=== PATIENT | female | born 1945 | race Caucasian/White ===

== ENCOUNTER 2016-08-22 14:24 | Inpatient (IN) | payer OTHER, MEDICARE ==
[~2016-08-22] VITALS: Ht 162.6 cm; Wt 75.2 kg
[~2016-08-22 14:24] MED LIST: Aspirin Chew CHEW; FLUO1TAB3 PO; LIPI80TA PO; METO25TA3 PO; OMEP20CA2 PO; PLAV75TA29 PO; SYNT112T PO
[2016-08-22 14:25] VITALS: BP 119/86; PULSE 52; RESP 16; TEMP 97.7; O2SAT 96
[2016-08-22 14:59] LABS: CHLORIDE 104 MEQ/L (98-107); POTASSIUM 4.1 MEQ/L (3.5-5.1); SODIUM (NA) 140 MEQ/L (136-145)
[2016-08-22 15:03] LABS: ANION GAP 12 MEQ/L (5-15); BICARBONATE 24.2 MEQ/L (21.0-32.0); BLOOD UREA NITROGEN 22 MG/DL (7-18)
[2016-08-22 15:06] LABS: GLOMERULAR FILTRATION RATE 40 ML/MIN (>89)
[2016-08-22 15:13] LABS: AUTOMATED NEUTROPHIL # 5.2 TH/MM3 (1.8-7.7); BASOPHIL # 0.1 TH/MM3 (0-0.2); BASOPHIL % 0.7 % (0.0-2.0); EOSINOPHIL # 0.1 TH/MM3 (0-0.4); EOSINOPHIL % 1.8 % (0.0-4.0); HEMATOCRIT 32.6 % (35.0-46.0); LYMPH % 25.5 % (9.0-44.0); LYMPHOCYTE # 2.1 TH/MM3 (1.0-4.8); MEAN CELL VOLUME 83.2 FL (80.0-100.0); MEAN CORPUSCULAR HEMOGLOBIN 26.5 PG (27.0-34.0); MEAN CORPUSCULAR HGB CONC 31.9 % (32.0-36.0); MONO % 7.7 % (0.0-8.0); NEUT % 64.3 % (16.0-70.0); PLATELET COUNT 419 TH/MM3 (150-450); RED BLOOD COUNT 3.92 MIL/MM3 (4.00-5.30); RED CELL DISTRIBUTION WIDTH 16.4 % (11.6-17.2); WHITE BLOOD COUNT 8.1 TH/MM3 (4.0-11.0)
[2016-08-22 15:14] LABS: HEMO FLAGS DIFF FINAL
[2016-08-22 15:17] LABS: CREATINE KINASE 26 U/L (26-192)
[2016-08-22 15:20] VITALS: BP 131/97; PULSE 52; RESP 16; O2SAT 99
[2016-08-22 15:22] LABS: INDIRECT BILIRUBIN 0.3 MG/DL (0.0-0.8); TOTAL BILIRUBIN ADULT 0.4 MG/DL (0.2-1.0)
[2016-08-22] MEDS ORDERED: PLAV75TA29 PO (15:34)
[2016-08-22] MEDS ORDERED: CHOL1CAP14 PO (15:34)
[2016-08-22] MEDS ORDERED: OMEP40CA2 PO (15:34)
[2016-08-22] MEDS ORDERED: FLUO1TAB3 PO (15:34)
[2016-08-22] MEDS ORDERED: AMLO5TAB2 PO (15:34)
[2016-08-22] MEDS ORDERED: LORA-373 PO (15:34)
[2016-08-22] MEDS ORDERED: METO25TA3 PO (15:34)
[2016-08-22] MEDS ORDERED: SYNT112T PO (15:34)
[2016-08-22] MEDS ORDERED: ATOR40TA16 PO (15:34)
--- NOTE | 2016-08-22 15:42 | RADRPT ---
EXAM DATE/TIME: 08/22/2016 14:51 [place] COMPARISON: CHEST SINGLE AP, January 28, 2016, 19:04. INDICATIONS : Chest pain MEDICAL HISTORY : Chronic obstructive pulmonary disease. Diabetes mellitus type II. SURGICAL HISTORY : CABG. ENCOUNTER: Initial ACUITY: 1 day PAIN SCORE: 8/10 LOCATION: Bilateral chest FINDINGS: Mild edema pattern. Mild cardiomegaly. Small effusions. Postop CABG. No pneumothorax. CONCLUSION: 1. Mild pulmonary edema pattern with small effusions. Postoperative CABG. Robert Gilliland MD on August 22, 2016 at 15:39 Board Certified Radiologist. This report was verified electronically.
[2016-08-22 16:30] VITALS: BP 127/68; PULSE 60; RESP 16; O2SAT 97
[2016-08-22] MEDS ORDERED: FUROSEMIDE 40 MG/4 ML VIAL IV PUSH ONE (17:00)
--- NOTE | 2016-08-22 17:21 | PD ---
HPI Chief Complaint: Chest Pain Time Seen by Provider: 14:31 Travel History International Travel<30 days: No Contact w/Intl Traveler<30days: No Traveled to known affect area: No History of Present Illness HPI 71-year-old female arrives to the ER with a complaint of shortness of breath for the past 14 hours or so. Chest pain followed. Location retrosternal. There is radiation of the left upper extremity. Has a pressure-like quality with a severity of 8/10. She took a nitroglycerin glycerin sublingual tablet which helped minimally. She had a similar pain although was less severe about 8 months prior which proceeded a CABG. Of note she underwent routine blood work performed by her primary doctor evidently for jaundice. The patient had no abdominal pain or vomiting. No change in urination. She reports orthopnea. She reports dyspnea on exertion as well. PFSH Past Medical History Depression: Yes Cancer: No Cardiovascular Problems: Yes Coronary Artery Disease: Yes Diabetes: Yes Patient Takes Glucophage: Yes Diminished Hearing: No GERD: Yes Glaucoma: No Hepatitis: No Hiatal Hernia: No Hypertension: Yes Medical other: Yes (HYPERCHOLESTEROLEMIA) Respiratory: No Immunizations Current: No Thyroid Disease: Yes ?: Not Past Surgical History Abdominal Surgery: Yes (APPEND) Appendectomy: Yes Cardiac Surgery: Yes (CARDIAC STENT X 3) Coronary Artery Bypass Graft: Yes (12/2015) Coronary Stent: Yes (X 4) Ear Surgery: No Endocrine Surgery: No Eye Surgery: No Genitourinary Surgery: No Gynecologic Surgery: Yes (HYSTERECTOMY) Hysterectomy: Yes Neurologic Surgery: No Oral Surgery: No Pacemaker: No Thoracic Surgery: No Tonsillectomy: Yes Other Surgery: Yes Social History Alcohol Use: Yes (1 BEERS DAILY) Tobacco Use: No Substance Use: No Allergies-Medications (Allergen,Severity, Reaction): Coded Allergies: Codeine (Verified Allergy, Unknown, ITCH, 08/22/16) Reported Meds & Prescriptions Reported Meds & Active Scripts Active [Aspirin Chew] 81 MG Chew 81 Mg CHEW DAILY 30 Days Reported Lorazepam 0.5 Mg Tab 0.5 Mg PO Q6H PRN Synthroid (Levothyroxine Sodium) 112 Mcg Tab 112 Mcg PO DAILY Plavix (Clopidogrel Bisulfate) 75 Mg Tab 75 Mg PO DAILY Omeprazole 40 Mg Cap 40 Mg PO DAILY Metoprolol Tartrate 25 Mg Tab 25 Mg PO BID Fluoxetine (Fluoxetine HCl) 20 Mg Tab 20 Mg PO DAILY D3 Maximum Strength (Cholecalciferol) 5,000 Unit Cap 5,000 Units PO DAILY Atorvastatin (Atorvastatin Calcium) 40 Mg Tab 40 Mg PO HS Amlodipine (Amlodipine Besylate) 5 Mg Tab 5 Mg PO DAILY Review of Systems Except as stated in HPI: all other systems reviewed are Neg Physical Exam Narrative GENERAL: 71-year-old female pleasant well-nourished well-developed no acute distress SKIN: Focused skin assessment warm/dry. HEAD: Atraumatic. Normocephalic. EYES: Pupils equal and round. No scleral icterus. No injection or drainage. ENT: No nasal bleeding or discharge. Mucous membranes pink and moist. NECK: Trachea midline. No JVD. CARDIOVASCULAR: Regular rate and rhythm. No murmur appreciated. RESPIRATORY: No accessory muscle use. Clear to auscultation. Breath sounds equal bilaterally. GASTROINTESTINAL: Abdomen soft, non-tender, nondistended. Hepatic and splenic margins not palpable. MUSCULOSKELETAL: No obvious deformities. No clubbing. No cyanosis. No edema. NEUROLOGICAL: Awake and alert. No obvious cranial nerve deficits. Motor grossly within normal limits. Normal speech. PSYCHIATRIC: Appropriate mood and affect; insight and judgment normal. Data Data Last Documented VS Vital Signs Date Time Temp Pulse Resp B/P Pulse Ox O2 Delivery O2 Flow Rate FiO2 08/22/16 16:30 60 16 127/68 97 08/22/16 15:20 Nasal Cannula 2 08/22/16 14:25 97.7 Vital signs reviewed Orders Electrocardiogram (08/22/16 14:29) Complete Blood Count With Diff (08/22/16 14:29) Basic Metabolic Panel (Bmp) (08/22/16 14:29) Ckmb (Isoenzyme) Profile (08/22/16 14:29) Troponin I (08/22/16 14:29) Chest, Single Ap (08/22/16 14:29) Iv Access Insert/Monitor (08/22/16 14:29) Ecg Monitoring (08/22/16 14:29) Oxygen Administration (08/22/16 14:29) Oximetry (08/22/16 14:29) Hepatic Functional Panel (08/22/16 15:00) Lipase (08/22/16 15:00) B-Type Natriuretic Peptide (08/22/16 15:53) Furosemide Inj (Lasix Inj) (08/22/16 17:00) Admit Order (Ed Use Only) (08/22/16 17:07) Labs Laboratory Tests Test 08/22/16 08/22/16 14:25 16:00 White Blood Count 8.1 TH/MM3 Red Blood Count 3.92 MIL/MM3 Hemoglobin 10.4 GM/DL Hematocrit 32.6 % Mean Corpuscular Volume 83.2 FL Mean Corpuscular Hemoglobin 26.5 PG Mean Corpuscular Hemoglobin 31.9 % Concent Red Cell Distribution Width 16.4 % Platelet Count 419 TH/MM3 Mean Platelet Volume 8.2 FL Neutrophils (%) (Auto) 64.3 % Lymphocytes (%) (Auto) 25.5 % Monocytes (%) (Auto) 7.7 % Eosinophils (%) (Auto) 1.8 % Basophils (%) (Auto) 0.7 % Neutrophils # (Auto) 5.2 TH/MM3 Lymphocytes # (Auto) 2.1 TH/MM3 Monocytes # (Auto) 0.6 TH/MM3 Eosinophils # (Auto) 0.1 TH/MM3 Basophils # (Auto) 0.1 TH/MM3 CBC Comment DIFF FINAL Differential Comment Sodium Level 140 MEQ/L Potassium Level 4.1 MEQ/L Chloride Level 104 MEQ/L Carbon Dioxide Level 24.2 MEQ/L Anion Gap 12 MEQ/L Blood Urea Nitrogen 22 MG/DL Creatinine 1.30 MG/DL Estimat Glomerular Filtration 40 ML/MIN Rate Random Glucose 142 MG/DL Calcium Level 8.4 MG/DL Total Bilirubin 0.4 MG/DL Direct Bilirubin 0.1 MG/DL Indirect Bilirubin 0.3 MG/DL Aspartate Amino Transf 15 U/L (AST/SGOT) Alanine Aminotransferase 20 U/L (ALT/SGPT) Alkaline Phosphatase 117 U/L Total Creatine Kinase 26 U/L Troponin I LESS THAN 0.02 NG/ML Total Protein 7.3 GM/DL Albumin 3.0 GM/DL Lipase 84 U/L B-Type Natriuretic Peptide 821 PG/ML MDM Medical Decision Making Medical Screen Exam Complete: Yes Emergency Medical Condition: Yes Medical Record Reviewed: Yes Differential Diagnosis NSTEMI, unstable angina, coronary vasospasm, PE, PTX, aortic dissection, pericarditis, myocarditis, endocarditis, PNA, esophageal disease, aneurysm, musculoskeletal etiologies, anxiety, cocaine/sympathomimetic abuse Narrative Course CBC & BMP Diagram 08/22/16 14:25 BNP 821 LFTs normal Lipase 84 Tn < 0.02 Last 24 hours Impressions Chest X-Ray 08/22/16 1429 Signed Impressions: Service Date/Time: Monday, August 22, 2016 14:51 - CONCLUSION: 1. Mild pulmonary edema pattern with small effusions. Postoperative CABG. Robert Gilliland MD Prior echo reveals aortic stenosis. Case d/w Dr Garcia. 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
[2016-08-22] MEDS ORDERED: BISACODYL 10 MG SUPP RECTAL PRN (17:30)
[2016-08-22] MEDS ORDERED: MAGNESIUM HYDROXIDE SUSP 30 ML CUP PO PRN (17:30)
[2016-08-22] MEDS ORDERED: LACTULOSE SYRUP 20 GM/30 ML CUP PO PRN (17:30)
[2016-08-22] MEDS ORDERED: SODIUM CHLORIDE 0.9% FLUSH 10 ML FLUSH IV FLUSH PRN (17:30)
[2016-08-22] MEDS ORDERED: SENNOSIDES 8.6 MG TAB PO PRN (17:30)
[2016-08-22] MEDS ORDERED: ONDANSETRON HCL 4 MG/2 ML VIAL IVP PRN (17:30)
[2016-08-22] MEDS ORDERED: NALOXONE HCL 0.4 MG/ML AMP IV PRN (17:30)
[2016-08-22 17:57] VITALS: O2SAT 99
[2016-08-22] MEDS ORDERED: ENOXAPARIN SODIUM 40 MG/0.4 ML SYRINGE SQ SCH (18:00)
--- NOTE | 2016-08-22 18:56 | HHI.HP ---
[facility]Staff Admission Diagnosis CHF Exacerbation; Chest Pain Diagnoses: Chief Complaint: Shortness of breath, chest pain. Travel History International Travel<30 Days: No Contact w/Intl Traveler <30 Da: No Traveled to Known Affected Are: No History of Present Illness Ms. White is a pleasant 71 year old female with a history of severe aortic stenosis who presented to the ED on 08/22/2016 due to dyspnea and chest discomfort. At around 2 AM on 08/22/2016 patient started experiencing shortness of breath which persisted until she arrived in the emergency department and received supplemental oxygen. She also experienced a brief episode of substernal chest pressure after she started having shortness of breath. Patient denies any nausea vomiting, cough, abdominal pain. Denies any fever or chills. Denies any changes in bowel or bladder habits. She received Lasix 40 mg IV in the emergency department. She follows up with Dr. Valentin with [facility]. Review of Systems Except as stated in HPI: all other systems reviewed are Neg Past Family Social History Past Medical History Aortic stenosis Hypothyroidism Hypertension Hyperlipidemia GERD Anxiety/Depression Past Surgical History Appendectomy Cardiac stent X 3 Hysterectomy Reported Medications [Aspirin Chew] 81 MG Chew 81 Mg CHEW DAILY 30 Days Reported Lorazepam 0.5 Mg Tab 0.5 Mg PO Q6H PRN Synthroid (Levothyroxine Sodium) 112 Mcg Tab 112 Mcg PO DAILY Plavix (Clopidogrel Bisulfate) 75 Mg Tab 75 Mg PO DAILY Omeprazole 40 Mg Cap 40 Mg PO DAILY Metoprolol Tartrate 25 Mg Tab 25 Mg PO BID Fluoxetine (Fluoxetine HCl) 20 Mg Tab 20 Mg PO DAILY D3 Maximum Strength (Cholecalciferol) 5,000 Unit Cap 5,000 Units PO DAILY Atorvastatin (Atorvastatin Calcium) 40 Mg Tab 40 Mg PO HS Amlodipine (Amlodipine Besylate) 5 Mg Tab 5 Mg PO DAILY Allergies: Coded Allergies: Codeine (Verified Allergy, Unknown, ITCH, 08/22/16) Family History MotherParkinson's. Mother/father/brother - heart disease. Social History 1 beer daily. Denies using tobacco or illicit drugs. Physical Exam Vital Signs Vital Signs Date Time Temp Pulse Resp B/P Pulse Ox O2 Delivery O2 Flow Rate FiO2 08/22/16 17:57 99 Nasal Cannula 2.00 08/22/16 16:30 60 16 127/68 97 08/22/16 15:20 52 16 131/97 99 Nasal Cannula 2 08/22/16 14:45 99 Nasal Cannula 2 08/22/16 14:25 52 24 96 Room Air 08/22/16 14:25 97.7 52 16 119/86 96 Physical Exam GENERAL: This is a well-nourished, well-developed patient, in no apparent distress. SKIN: No rashes, ecchymoses or lesions. Warm and dry. HEAD: Atraumatic. Normocephalic. No temporal or scalp tenderness. EYES: Pupils equal round and reactive. No injection or drainage. ENT: Nose without bleeding, purulent drainage or septal hematoma. Airway patent. NECK: Trachea midline. No lymphadenopathy. Supple, nontender, no meningeal signs. CARDIOVASCULAR: Regular rate and rhythm without gallops, or rubs. No JVD. Systolic ejection murmur heard on both side of the sternum. RESPIRATORY: Clear to auscultation. Breath sounds equal bilaterally. No wheezes , rales, or rhonchi. GASTROINTESTINAL: Abdomen soft, non-tender, nondistended. No guarding. MUSCULOSKELETAL: Extremities without clubbing, cyanosis, or edema. NEUROLOGICAL: Awake and alert. Cranial nerves II through XII intact. No focal neurological deficits. Normal speech. Laboratory Laboratory Tests Test 08/22/16 08/22/16 14:25 16:00 White Blood Count 8.1 Red Blood Count 3.92 Hemoglobin 10.4 Hematocrit 32.6 Mean Corpuscular Volume 83.2 Mean Corpuscular Hemoglobin 26.5 Mean Corpuscular Hemoglobin 31.9 Concent Red Cell Distribution Width 16.4 Platelet Count 419 Mean Platelet Volume 8.2 Neutrophils (%) (Auto) 64.3 Lymphocytes (%) (Auto) 25.5 Monocytes (%) (Auto) 7.7 Eosinophils (%) (Auto) 1.8 Basophils (%) (Auto) 0.7 Neutrophils # (Auto) 5.2 Lymphocytes # (Auto) 2.1 Monocytes # (Auto) 0.6 Eosinophils # (Auto) 0.1 Basophils # (Auto) 0.1 CBC Comment DIFF FINAL Differential Comment Sodium Level 140 Potassium Level 4.1 Chloride Level 104 Carbon Dioxide Level 24.2 Anion Gap 12 Blood Urea Nitrogen 22 Creatinine 1.30 Estimat Glomerular Filtration 40 Rate Random Glucose 142 Calcium Level 8.4 Total Bilirubin 0.4 Direct Bilirubin 0.1 Indirect Bilirubin 0.3 Aspartate Amino Transf 15 (AST/SGOT) Alanine Aminotransferase 20 (ALT/SGPT) Alkaline Phosphatase 117 Total Creatine Kinase 26 Troponin I LESS THAN 0.02 Total Protein 7.3 Albumin 3.0 Lipase 84 B-Type Natriuretic Peptide 821 Result Diagram: 08/22/16 1425 08/22/16 142 Imaging Last Impressions Chest X-Ray 08/22/161428 Signed Impressions: Service Date/Time: Monday, August 22, 2016 14:51 - CONCLUSION: 1. Mild pulmonary edema pattern with small effusions. Postoperative CABG. Robert Gilliland MD Assessment and Plan Problem List: (1) CHF exacerbation ICD Code: I50.9 Status: Acute (2) CAD (coronary artery disease) ICD Code: I25.10 Status: Acute (3) Hypothyroidism ICD Code: E03.9 Status: Chronic (4) Hyperlipidemia ICD Code: E78.5 Status: Chronic Assessment and Plan Ms. White is a pleasant 71-year-old patient female with a history of hypertension, hypothyroidism, moderate to severe aortic stenosis who presents to the emergency department due to shortness of breath that started around 2 AM on 08/22/2016. Patient had a brief episode of chest pressure as well. - Congestive heart failure with preserved left ventricular ejection fraction - Moderate to severe aortic stenosis - Echocardiogram from January 2016 indicates preserved ejection fraction but moderate to severe aortic stenosis. - Echo from January 2016 recommended a VIPUL - Patient reports improvement with supplemental oxygen and Lasix 40 mg given in the emergency department. - We'll consult cardiology for further recommendations including evaluation for TAVR. - 2-D echocardiogram to evaluate LV function as well as aortic stenosis. - Coronary artery disease - Carotid artery stenosis - status post 3 cardiac stents last one in 2011 and status post carotid endarterectomy, carotid stent placement - Continue aspirin 81 mg, Plavix 75 mg, atorvastatin 40 mg. - Atrial fibrillation - Appears to be a new finding. Previous EKG from 2016 does not show Afib - [id number] score at least 3 (Age, female, HTN), higher if CHF is considered in the calculation as well. - Currently rate is controlled. Patient would benefit from switching from Plavix to warfarin or preferably newer anti-coagulants such as Apixaban. - Hypertension - continue amlodipine 2.5 mg daily, metoprolol 25 mg by mouth twice a day - Hypothyroidism - continue levothyroxine 112 g daily. Full code. Lovenox 40mg Qday. Physician Certification 2 Midnight Certification Type: Admission for Inpatient Services Order for Inpatient Services The services are ordered in accordance with Medicare regulations or non- Medicare payer requirements, as applicable. In the case of services not specified as inpatient-only, they are appropriately provided as inpatient services in accordance with the 2-midnight benchmark. Estimated LOS (days): 2 days is the estimated time the patient will need to remain in the hospital, assuming treatment plan goals are met and no additional complications. Post-Hospital Plan: Home Problem Qualifiers (1) CHF exacerbation: Qualified Code: I50.9 - Acute on chronic congestive heart failure, unspecified congestive heart failure type Alem Garcia DO Aug 22, 2016 6:56 pm
[2016-08-22 20:00] VITALS: BP 150/72; PULSE 61; RESP 16; TEMP 96.8; O2SAT 98
[2016-08-22 21:00] VITALS: PULSE 55
[2016-08-22] MEDS: DOCUSATE SODIUM 50 MG/SENNA 8.6 MG TAB PO SCH (21:00)
[2016-08-22] MEDS: LORazepam 0.5 MG TAB PO PRN (21:54)
[2016-08-22] MEDS: ATORVASTATIN 40 MG TAB PO SCH (21:54)
[2016-08-22] MEDS: METOPROLOL TARTRATE 25 MG TAB PO SCH (21:54)
[2016-08-22] MEDS: ACETAMINOPHEN 325 MG TAB PO PRN (21:55)
[2016-08-22] MEDS: SODIUM CHLORIDE 0.9% FLUSH 10 ML FLUSH IV FLUSH SCH (21:57)
[2016-08-22] MEDS ORDERED: MELA1TAB18 PO (23:18)
[2016-08-23] VITALS (18 sets, daily range): BP systolic 109–142; BP diastolic 64–82; PULSE 50–74; RESP 16–20; TEMP 95.7–98.4; O2SAT 94–98
[2016-08-23 06:42] LABS: AUTOMATED NEUTROPHIL # 3.4 TH/MM3 (1.8-7.7); BASOPHIL % 0.6 % (0.0-2.0); EOSINOPHIL # 0.2 TH/MM3 (0-0.4); EOSINOPHIL % 2.8 % (0.0-4.0); HEMATOCRIT 31.1 % (35.0-46.0); HEMO FLAGS DIFF FINAL; LYMPH % 29.4 % (9.0-44.0); LYMPHOCYTE # 1.8 TH/MM3 (1.0-4.8); MEAN CORPUSCULAR HEMOGLOBIN 26.5 PG (27.0-34.0); MEAN CORPUSCULAR HGB CONC 32.3 % (32.0-36.0); MONO % 9.5 % (0.0-8.0); NEUT % 57.7 % (16.0-70.0); PLATELET COUNT 386 TH/MM3 (150-450); RED BLOOD COUNT 3.79 MIL/MM3 (4.00-5.30); RED CELL DISTRIBUTION WIDTH 15.7 % (11.6-17.2)
[2016-08-23 06:49] LABS: POTASSIUM 3.7 MEQ/L (3.5-5.1)
[2016-08-23 06:52] LABS: BICARBONATE 26.3 MEQ/L (21.0-32.0)
[2016-08-23] MEDS: LEVOTHYROXINE SODIUM 112 MCG TAB PO SCH (06:57)
[2016-08-23] MEDS ORDERED: CLOPIDOGREL 75 MG TAB PO SCH (09:00)
[2016-08-23] MEDS ORDERED: amLODIPine BESYLATE 5 MG TAB PO SCH (09:00)
[2016-08-23] MEDS ORDERED: APIXABAN 5 MG TABLET PO SCH (09:00)
--- NOTE | 2016-08-23 09:00 | HHI.PR ---
Subjective Remarks Follow up for CHF, Aortic stenosis, Afib. Patient is doing well. Denies any chest pain, shortness of breath, fever, chills. She is comfortable in bed. Objective Vitals Vital Signs Date Time Temp Pulse Resp B/P Pulse Ox O2 Delivery O2 Flow Rate FiO2 08/23/16 08:00 95 Nasal Cannula 2.00 08/23/16 04:00 96.2 56 16 109/75 97 08/23/16 00:00 96.1 60 16 142/70 98 08/22/16 21:00 55 08/22/16 20:00 98 Nasal Cannula 2.00 08/22/16 20:00 96.8 61 16 150/72 98 08/22/16 17:57 99 Nasal Cannula 2.00 08/22/16 16:30 60 16 127/68 97 08/22/16 15:20 52 16 131/97 99 Nasal Cannula 2 08/22/16 14:45 99 Nasal Cannula 2 08/22/16 14:25 52 24 96 Room Air 08/22/16 14:25 97.7 52 16 119/86 96 I/O 08/22/16 08/22/16 08/22/16 08/23/16 08/23/16 08/23/16 07:00 15:00 23:00 07:00 15:00 23:00 Intake Total 240 ml Output Total 800 ml Balance -800 ml 240 ml Intake Oral 240 ml Output Urine Total 800 ml # Voids 3 # Bowel Movements 0 Result Diagram: 08/23/16 0550 08/23/16 0550 Imaging Last Impressions Chest X-Ray 08/22/16 1429 Signed Impressions: Service Date/Time: Monday, August 22, 2016 14:51 - CONCLUSION: 1. Mild pulmonary edema pattern with small effusions. Postoperative CABG. Robert Gilliland MD Objective Remarks GENERAL: AOX3, NAD. On supplemental O2. SKIN: Warm and dry. HEAD: Normocephalic. EYES: No scleral icterus. No injection or drainage. NECK: Supple, trachea midline. No JVD or lymphadenopathy. CARDIOVASCULAR: Irreg Irreg without gallops, or rubs. Systolic murmur heard on both sides of the sternum RESPIRATORY: Breath sounds equal bilaterally. No accessory muscle use. GASTROINTESTINAL: Abdomen soft, non-tender, nondistended. MUSCULOSKELETAL: No cyanosis, or edema. BACK: Nontender without obvious deformity. No CVA tenderness. Procedures None. A/P Problem List: (1) CHF exacerbation ICD Code: I50.9 Status: Acute (2) CAD (coronary artery disease) ICD Code: I25.10 Status: Acute (3) Hypothyroidism ICD Code: E03.9 Status: Chronic (4) Hyperlipidemia ICD Code: E78.5 Status: Chronic Assessment and Plan Ms. White is a pleasant 71-year-old patient female with a history of hypertension, hypothyroidism, moderate to severe aortic stenosis who presents to the emergency department due to shortness of breath that started around 2 AM on 08/22/2016. Patient had a brief episode of chest pressure as well. - Congestive heart failure with preserved left ventricular ejection fraction - Moderate to severe aortic stenosis - Echocardiogram from January 2016 indicates preserved ejection fraction but moderate to severe aortic stenosis. - Patient reports improvement with supplemental oxygen and Lasix 40 mg given in the emergency department. - Consulted cardiology for further recommendations including evaluation for TAVR. - 2-D echocardiogram to evaluate LV function as well as aortic stenosis. - Cardiology recommends transferring patient to the main hospital for possible Cardiac cath. NPO midnight except meds. - Coronary artery disease - Carotid artery stenosis - status post 3 cardiac stents last one in 2011 and status post carotid endarterectomy, carotid stent placement - Continue aspirin 81 mg, Plavix 75 mg, atorvastatin 40 mg. - Atrial fibrillation - Appears to be a new finding. Previous EKG from 2016 does not show Afib - [id number] score at least 3 (Age, female, HTN), higher if CHF is considered in the calculation as well. - Currently rate is controlled. Patient would benefit from switching from Plavix to warfarin or preferably newer anti-coagulants such as Apixaban. - Hypertension - continue amlodipine 2.5 mg daily, metoprolol 25 mg by mouth twice a day - Hypothyroidism - continue levothyroxine 112 g daily. Full code. Lovenox 40mg Qday. Problem Qualifiers (1) CHF exacerbation: Qualified Code: I50.9 - Acute on chronic congestive heart failure, unspecified congestive heart failure type Alem Garcia DO Aug 23, 2016 8:59 am
[2016-08-23] MEDS: DOCUSATE SODIUM 50 MG/SENNA 8.6 MG TAB PO SCH ×2 (09:04→21:00)
[2016-08-23] MEDS: METOPROLOL TARTRATE 25 MG TAB PO SCH ×2 (09:04→21:14)
[2016-08-23] MEDS: amLODIPine BESYLATE 5 MG TAB PO SCH (09:04)
[2016-08-23] MEDS: FLUoxetine HCL 20 MG CAP PO SCH (09:04)
[2016-08-23] MEDS: PANTOPRAZOLE SOD 40 MG DELAYED RELEASE TAB PO SCH (09:04)
[2016-08-23] MEDS: ASPIRIN EC 81 MG TABEC PO SCH (09:04)
[2016-08-23] MEDS: ACETAMINOPHEN 325 MG TAB PO PRN ×2 (09:11→21:12)
[2016-08-23] MEDS: SODIUM CHLORIDE 0.9% FLUSH 10 ML FLUSH IV FLUSH SCH ×2 (09:11→21:15)
[2016-08-23] MEDS: CHOLECALCIFEROL (VIT D3) 5000 UNIT CAP PO SCH (09:11)
[2016-08-23] MEDS ORDERED: CLOPIDOGREL 75 MG TAB PO ONE (09:15)
--- NOTE | 2016-08-23 09:24 | MB ---
cc: LUCI ROBERTS MD DATE OF CONSULTATION August 23, 2016 REASON FOR CONSULTATION CHF and aortic stenosis. HISTORY OF PRESENT ILLNESS The patient is a very pleasant 71-year-old woman with a history of CHF and aortic stenosis who had a hospitalization this past January for these issues. At that point she had an echocardiogram which showed a normal ejection fraction but was read as moderate to severe (only a low gradient was found by Doppler and thus a VIPUL was recommended). The patient has been doing well but yesterday had another episode of sudden shortness of breath in the middle of the night which she said was quite scary. She presented to the hospital in clinical congestive heart failure, was given IV Lasix and now was close to baseline. She denies any residual shortness of breath though she is on oxygen. She has no chest discomfort, lightheadedness, dizziness or syncope. PAST MEDICAL HISTORY 1. Aortic stenosis. 2. Congestive heart failure. 3. Hypothyroidism. 4. Hypertension. 5. Hyperlipidemia. 6. anxiety, depression. 7. Coronary artery disease with three stents. CURRENT MEDICATIONS 1. Plavix 75 mg daily. 2. Prozac. 3. Protonix. 4. Aspirin 81 mg daily. 5. Norvasc 2.5 mg daily. 6. Synthroid. 7. Lipitor 240 mg q.h.s. 8. Lopressor 25 mg b.i.d. ALLERGIES CODEINE. PHYSICAL EXAMINATION VITAL SIGNS: Afebrile, pulse 56, respiratory rate 16, BP 109/75, sating 97% on 2 liters. GENERAL: A very pleasant, well-appearing woman in no distress. NECK: No JVD. LUNGS: Clear to auscultation bilaterally. CARDIOVASCULAR: Regular rate and rhythm. A 3/6 harsh systolic murmurs is appreciated loudest at the right upper sternal border. ABDOMEN: Benign. EXTREMITIES: No edema. LABORATORY DATA Sodium 142, potassium 3.7, chloride 104, bicarb 26.3, BUN 20, creatinine 1.1, glucose 129. Cardiac enzymes are negative x 1. BNP is 821. INR is 1.0. White count 6.0, hematocrit 31.1, platelets 386. CHEST X-RAY Mild pulmonary edema. EKG Atrial fibrillation at a controlled rate with nonspecific ST changes. TELEMETRY Telemetry shows rate-controlled atrial fibrillation. IMPRESSION 1. CHF. The patient had yet another episode of CHF and possibly severe valvular disease. She requires an AVR workup and the patient is willing to have this done inpatient. I will transfer to the main hospital for potential cath/VIPUL or even a dobutamine echocardiogram depending on her gradient. 2. Atrial fibrillation. As far as I can tell this is a new diagnosis for the patient. She would require full anticoagulation but in light that she may be undergoing invasive procedures, I will hold off on changing her to full anticoagulation but will discuss the situation with Dr. Valentin who can address the timing of anticoagulation with any planned invasive testing. Her rate is well-controlled on current medications. Thank you again for the opportunity to participate in this patient's care. MD CROW Martinez/SEAN /8:03 AM /9:19 AM
--- NOTE | 2016-08-23 14:05 | EKG ---
Date Performed: 08/22/2016 Time Performed: 14:32:22 PTAGE: 71 years EKG: Indeterminate atrial rhythm due to baseline wandering artifarct SEPTAL MYOCARDIAL INFARCTIO N MODERATE T-WAVE ABNORMALITY, CONSIDER LATERAL ISCHEMIA MODERATE T-WAVE ABNORMALITY, CONSIDER INFERI OR ISCHEMIA ABNORMAL ECG INTERPRETATION BASED ON A DEFAULT AGE OF 40 YEARS NO PREVIOUS TRACING DOCTOR: Kenneth Shelton Interpretating Date/Time 08/23/2016 14:04:03
--- NOTE | 2016-08-23 16:44 | ECHRPT ---
Indication: sob evaluate CONCLUSIONS Normal left ventricular size. Mild concentric left ventricular hypertrophy. No regional wall motion abnormalities are present. The left atrial size is [id number] dilated. [id number] mitral valve regurgitation. Severe calcified aortic valve leaflets with restrictive motion. Mild aortic valve regurgitation. Moderate to severe Aortic Stenosis BP: / HR: Rhythm: Technical Quality:Good FINDINGS LEFT VENTRICLE Normal left ventricular size. Mild concentric left ventricular hypertrophy. The left ventricular systolic function is normal with an estimated ejection fraction in the range of 60-65%. No regional wall motion abnormalities are present. RIGHT VENTRICLE Normal right ventricular size and systolic function. LEFT ATRIUM The left atrial size is [id number] dilated. RIGHT ATRIUM The right atrial size is normal. ATRIAL SEPTUM Normal atrial septal thickness without atrial level shunting by limited color doppler interrogation. AORTA The aortic root and proximal ascending aorta are normal in size on limited imaging. MITRAL VALVE Smqd-cu-[id number] mitral valve regurgitation. MVA 2.3 AORTIC VALVE Severe thickening of the aortic valve leaflets. Mild aortic valve regurgitation. Aortic valve mean gradient is 24__ mmHg. Vmax 339 Max AV gradient 46mmhg HECTOR .9 TRICUSPID VALVE Structurally normal tricuspid valve. No tricuspid valve stenosis or regurgitation. PULMONARY VALVE The pulmonary valve is not well visualized. VESSELS The inferior vena cava is normal in size. PERICARDIUM No pericardial effusion. Silvino Gutierrez MD (Electronically Signed) Final Date:23 August 2016 16:44
[2016-08-23] MEDS: ATORVASTATIN 40 MG TAB PO SCH (21:13)
[2016-08-23] MEDS: MELATONIN 5 MG TAB PO PRN (22:54)
[2016-08-24] VITALS (25 sets, daily range): BP systolic 113–150; BP diastolic 70–84; PULSE 54–72; RESP 16–20; TEMP 97–98.8; O2SAT 95–99
[2016-08-24] MEDS: LEVOTHYROXINE SODIUM 112 MCG TAB PO SCH (04:44)
[2016-08-24] MEDS: ACETAMINOPHEN 325 MG TAB PO PRN ×2 (04:45→23:22)
[2016-08-24] MEDS: METOPROLOL TARTRATE 25 MG TAB PO SCH ×2 (09:00→23:14)
[2016-08-24] MEDS: DOCUSATE SODIUM 50 MG/SENNA 8.6 MG TAB PO SCH ×2 (09:00→21:00)
[2016-08-24] MEDS: PANTOPRAZOLE SOD 40 MG DELAYED RELEASE TAB PO SCH (10:01)
[2016-08-24] MEDS: FLUoxetine HCL 20 MG CAP PO SCH (10:01)
[2016-08-24] MEDS: CHOLECALCIFEROL (VIT D3) 5000 UNIT CAP PO SCH (10:01)
[2016-08-24] MEDS: amLODIPine BESYLATE 5 MG TAB PO SCH (10:02)
[2016-08-24] MEDS: ASPIRIN EC 81 MG TABEC PO SCH (10:02)
[2016-08-24] MEDS: CLOPIDOGREL 75 MG TAB PO SCH (10:02)
--- NOTE | 2016-08-24 15:03 | PD.CARD.PN ---
Subjective Subjective Remarks No chest pain, some shortness of breath while walking Currently up and ambulating Objective Medications Current Medications Medications (Trade) Dose Ordered Sig/Isai Route Start Time Stop Time Status Last Admin (NS Flush) 2 ml UNSCH PRN IV FLUSH 08/22/16 17:30 (NS Flush) 2 ml BID IV FLUSH 08/22/16 21:00 08/23/16 21:15 (Tylenol) 650 mg Q4H PRN PO 08/22/16 17:30 08/24/16 04:45 (Zofran Inj) 4 mg Q6H PRN IVP 08/22/16 17:30 (Narcan Inj) 0.4 mg UNSCH PRN IV 08/22/16 17:30 (Beth-Colace) 1 tab BID PO 08/22/16 21:00 08/23/16 09:04 (Milk Of Magnesia Liq) 30 ml Q12H PRN PO 08/22/16 17:30 (Senokot) 17.2 mg Q12H PRN PO 08/22/16 17:30 (Dulcolax Supp) 10 mg DAILY PRN RECTAL 08/22/16 17:30 (Lactulose Liq) 30 ml DAILY PRN PO 08/22/16 17:30 (Lipitor) 40 mg HS PO 08/22/16 21:00 08/23/16 21:13 (Vitamin D3) 5,000 units DAILY PO 08/23/16 09:00 08/24/16 10:01 (PROzac) 20 mg DAILY PO 08/23/16 09:00 08/24/16 10:01 (Synthroid) 112 mcg DAILY@06 PO 08/23/16 06:00 08/24/16 04:44 (Ativan) 0.5 mg Q6H PRN PO 08/22/16 19:30 08/22/16 21:54 (Lopressor) 25 mg BID PO 08/22/16 21:00 08/24/16 09:00 (Protonix) 40 mg DAILY PO 08/23/16 09:00 08/24/16 10:01 (Ecotrin Ec) 81 mg DAILY PO 08/23/16 09:00 08/24/16 10:02 (Norvasc) 2.5 mg DAILY PO 08/23/16 09:00 08/24/16 10:02 (Plavix) 75 mg DAILY PO 08/24/16 09:00 08/24/16 10:02 (Melatonin) 5 mg HS PRN PO 08/23/16 22:00 08/23/16 22:54 Vital Signs / I&O Vital Signs Date Time Temp Pulse Resp B/P Pulse Ox O2 Delivery O2 Flow Rate FiO2 08/24/16 10:08 97.9 69 19 150/82 97 08/24/16 09:34 95 Nasal Cannula 2.00 08/24/16 06:00 62 08/24/16 05:00 68 08/24/16 04:00 60 08/24/16 03:20 98.0 64 19 127/75 97 08/24/16 03:10 70 08/24/16 02:00 64 08/24/16 01:00 55 08/24/16 00:00 60 08/23/16 23:15 97.7 61 20 132/76 97 08/23/16 23:00 55 08/23/16 22:00 60 08/23/16 21:00 70 08/23/16 20:15 97 0.50 08/23/16 20:15 98.4 67 18 129/74 97 08/23/16 20:15 68 08/23/16 19:00 57 08/23/16 18:00 66 08/23/16 17:56 94 Nasal Cannula 2.00 08/23/16 17:00 60 08/23/16 16:00 63 08/23/16 15:02 65 08/23/16 15:02 97.7 60 20 120/68 94 I/O 08/23/16 08/23/16 08/23/16 08/24/16 08/24/16 08/24/16 07:00 15:00 23:00 07:00 15:00 23:00 Intake Total 240 ml 360 ml 360 ml Balance 240 ml 360 ml 360 ml Intake Oral 240 ml 360 ml 360 ml # Voids 3 3 2 2 # Bowel Movements 0 0 1 Physical Exam GENERAL: NAD, AAOx3 SKIN: Warm and dry. HEAD: Atraumatic. Normocephalic. EYES: Pupils equal and round. No scleral icterus. No injection or drainage. ENT: No nasal bleeding or discharge. Mucous membranes pink and moist. NECK: Trachea midline. No JVD. CARDIOVASCULAR: Irregularly irregular RESPIRATORY: No accessory muscle use. Clear to auscultation. Breath sounds equal bilaterally. GASTROINTESTINAL: Abdomen soft, non-tender, nondistended. Hepatic and splenic margins not palpable. MUSCULOSKELETAL: Extremities without clubbing, cyanosis, or edema. No obvious deformities. NEUROLOGICAL: Awake and alert. No obvious cranial nerve deficits. Motor grossly within normal limits. Five out of 5 muscle strength in the arms and legs. Normal speech. PSYCHIATRIC: Appropriate mood and affect; insight and judgment normal. Laboratory Laboratory Tests Test 08/22/16 08/22/16 08/23/16 14:25 16:00 05:50 White Blood Count 8.1 TH/MM3 6.0 TH/MM3 (4.0-11.0) (4.0-11.0) Red Blood Count 3.92 MIL/MM3 3.79 MIL/MM3 (4.00-5.30) (4.00-5.30) Hemoglobin 10.4 GM/DL 10.1 GM/DL (11.6-15.3) (11.6-15.3) Hematocrit 32.6 % 31.1 % (35.0-46.0) (35.0-46.0) Mean Corpuscular Volume 83.2 FL 82.0 FL (80.0-100.0) (80.0-100.0) Mean Corpuscular Hemoglobin 26.5 PG 26.5 PG (27.0-34.0) (27.0-34.0) Mean Corpuscular Hemoglobin 31.9 % 32.3 % Concent (32.0-36.0) (32.0-36.0) Red Cell Distribution Width 16.4 % 15.7 % (11.6-17.2) (11.6-17.2) Platelet Count 419 TH/MM3 386 TH/MM3 (150-450) (150-450) Mean Platelet Volume 8.2 FL 8.0 FL (7.0-11.0) (7.0-11.0) Neutrophils (%) (Auto) 64.3 % 57.7 % (16.0-70.0) (16.0-70.0) Lymphocytes (%) (Auto) 25.5 % 29.4 % (9.0-44.0) (9.0-44.0) Monocytes (%) (Auto) 7.7 % (0.0-8.0) 9.5 % (0.0-8.0) Eosinophils (%) (Auto) 1.8 % (0.0-4.0) 2.8 % (0.0-4.0) Basophils (%) (Auto) 0.7 % (0.0-2.0) 0.6 % (0.0-2.0) Neutrophils # (Auto) 5.2 TH/MM3 3.4 TH/MM3 (1.8-7.7) (1.8-7.7) Lymphocytes # (Auto) 2.1 TH/MM3 1.8 TH/MM3 (1.0-4.8) (1.0-4.8) Monocytes # (Auto) 0.6 TH/MM3 0.6 TH/MM3 (0-0.9) (0-0.9) Eosinophils # (Auto) 0.1 TH/MM3 0.2 TH/MM3 (0-0.4) (0-0.4) Basophils # (Auto) 0.1 TH/MM3 0.0 TH/MM3 (0-0.2) (0-0.2) CBC Comment DIFF FINAL DIFF FINAL Differential Comment Sodium Level 140 MEQ/L 142 MEQ/L (136-145) (136-145) Potassium Level 4.1 MEQ/L 3.7 MEQ/L (3.5-5.1) (3.5-5.1) Chloride Level 104 MEQ/L 104 MEQ/L (98-107) (98-107) Carbon Dioxide Level 24.2 MEQ/L 26.3 MEQ/L (21.0-32.0) (21.0-32.0) Anion Gap 12 MEQ/L (5-15) 12 MEQ/L (5-15) Blood Urea Nitrogen 22 MG/DL (7-18) 20 MG/DL (7-18) Creatinine 1.30 MG/DL 1.10 MG/DL (0.50-1.00) (0.50-1.00) Estimat Glomerular Filtration 40 ML/MIN (>89) 49 ML/MIN (>89) Rate Random Glucose 142 MG/DL 129 MG/DL (74-106) (74-106) Calcium Level 8.4 MG/DL 8.6 MG/DL (8.5-10.1) (8.5-10.1) Total Bilirubin 0.4 MG/DL (0.2-1.0) Direct Bilirubin 0.1 MG/DL (0.0-0.2) Indirect Bilirubin 0.3 MG/DL (0.0-0.8) Aspartate Amino Transf 15 U/L (15-37) (AST/SGOT) Alanine Aminotransferase 20 U/L (10-53) (ALT/SGPT) Alkaline Phosphatase 117 U/L (45-117) Total Creatine Kinase 26 U/L (26-192) Troponin I LESS THAN 0.02 NG/ML (0.02-0.05) Total Protein 7.3 GM/DL (6.4-8.2) Albumin 3.0 GM/DL (3.4-5.0) Lipase 84 U/L (73-393) B-Type Natriuretic Peptide 821 PG/ML (0-100) Assessment and Plan Problem List: (1) CHF exacerbation (2) CAD (coronary artery disease) (3) Aortic stenosis (4) New onset a-fib Assessment and Plan 1) Shortness of breath/acute CHF exacerbation May be due to valvular disease (Mod-severe , moderate AR) vs. new onset atrial fibrillation 2) Known CAD and moderate to severe , will plan for right and left heart catheterization tomorrow to determine coronary anatomy and valvular dynamics May need evaluation for AVR vs TAVR depending on the results NPO after midnight 3) Will need further consideration for anti-coagulation post-procedure due to new onset Afib CHADSVASc = 7 Problem Qualifiers (1) CHF exacerbation: Qualified Code: I50.9 - Acute on chronic congestive heart failure, unspecified congestive heart failure type Chidi Valentin DO Aug 24, 2016 15:03
--- NOTE | 2016-08-24 15:37 | HHI.PR ---
Subjective Remarks feels much better no chest pain or shortness of breath around her room Objective Vitals Vital Signs Date Time Temp Pulse Resp B/P Pulse Ox O2 Delivery O2 Flow Rate FiO2 08/24/16 15:12 98.8 69 146/76 99 08/24/16 10:08 97.9 69 19 150/82 97 08/24/16 09:34 95 Nasal Cannula 2.00 08/24/16 06:00 62 08/24/16 05:00 68 08/24/16 04:00 60 08/24/16 03:20 98.0 64 19 127/75 97 08/24/16 03:10 70 08/24/16 02:00 64 08/24/16 01:00 55 08/24/16 00:00 60 08/23/16 23:15 97.7 61 20 132/76 97 08/23/16 23:00 55 08/23/16 22:00 60 08/23/16 21:00 70 08/23/16 20:15 97 0.50 08/23/16 20:15 98.4 67 18 129/74 97 08/23/16 20:15 68 08/23/16 19:00 57 08/23/16 18:00 66 08/23/16 17:56 94 Nasal Cannula 2.00 08/23/16 17:00 60 08/23/16 16:00 63 I/O 08/23/16 08/23/16 08/23/16 08/24/16 08/24/16 08/24/16 07:00 15:00 23:00 07:00 15:00 23:00 Intake Total 240 ml 360 ml 360 ml Balance 240 ml 360 ml 360 ml Intake Oral 240 ml 360 ml 360 ml # Voids 3 3 2 2 # Bowel Movements 0 0 1 Result Diagram: 08/23/16 0550 08/23/16 0550 Imaging Last Impressions Chest X-Ray 08/22/16 1429 Signed Impressions: Service Date/Time: Monday, August 22, 2016 14:51 - CONCLUSION: 1. Mild pulmonary edema pattern with small effusions. Postoperative CABG. Robert Gilliland MD Objective Remarks awake and alert NAD anicteric lungs no rales or wheezes irregular rhythm, 4/6 systolic murmur left sternal border abdomen soft, nontender extremities no edema neuro exam- unremarkable Procedures None. A/P Problem List: (1) CHF exacerbation ICD Code: I50.9 Status: Acute (2) CAD (coronary artery disease) ICD Code: I25.10 Status: Acute (3) Hypothyroidism ICD Code: E03.9 Status: Chronic (4) Hyperlipidemia ICD Code: E78.5 Status: Chronic Assessment and Plan Ms. White is a pleasant 71-year-old patient female with a history of hypertension, hypothyroidism, moderate to severe aortic stenosis who presents to the emergency department due to shortness of breath that started around 2 AM on 08/22/2016. Patient had a brief episode of chest pressure as well. - Acute Congestive heart failure with preserved left ventricular ejection fraction secondary to severe - Moderate to severe aortic stenosis - Echocardiogram from January 2016 indicates preserved ejection fraction but moderate to severe aortic stenosis. - Patient reports improvement with supplemental oxygen and Lasix 40 mg given in the emergency department. - Consulted cardiology for further recommendations including evaluation for TAVR. - 2-D echocardiogram to evaluate LV function as well as aortic stenosis. - Dr. peck ff Cardiac cath. NPO midnight except meds. - Coronary artery disease - Carotid artery stenosis - status post 3 cardiac stents last one in 2011 and status post carotid endarterectomy, carotid stent placement - Continue aspirin 81 mg, Plavix 75 mg, atorvastatin 40 mg. - Atrial fibrillation, new onset- rate controlled - Appears to be a new finding. Previous EKG from 2016 does not show Afib - [id number] score at least 3 (Age, female, HTN), higher if CHF is considered in the calculation as well. - Currently rate is controlled. Patient would benefit from switching from Plavix to warfarin or preferably newer anti-coagulants such as Apixaban. - Hypertension - continue amlodipine 2.5 mg daily, metoprolol 25 mg by mouth twice a day - Hypothyroidism - continue levothyroxine 112 g daily. Full code. Lovenox 40mg Qday. Problem Qualifiers (1) CHF exacerbation: Qualified Code: I50.9 - Acute on chronic congestive heart failure, unspecified congestive heart failure type Marixa Heredia MD Aug 24, 2016 15:37
[2016-08-24] MEDS: ATORVASTATIN 40 MG TAB PO SCH (23:14)
[2016-08-24] MEDS: SODIUM CHLORIDE 0.9% FLUSH 10 ML FLUSH IV FLUSH SCH ×2 (23:15→23:22)
[2016-08-24] MEDS: MELATONIN 5 MG TAB PO PRN (23:15)
[2016-08-24] MEDS: LORazepam 0.5 MG TAB PO PRN (23:21)
[2016-08-25] VITALS (25 sets, daily range): BP systolic 121–152; BP diastolic 60–86; PULSE 59–78; RESP 16–20; TEMP 98.1–98.5; O2SAT 97–98
[2016-08-25] MEDS: LEVOTHYROXINE SODIUM 112 MCG TAB PO SCH (05:56)
[2016-08-25] MEDS: DOCUSATE SODIUM 50 MG/SENNA 8.6 MG TAB PO SCH ×2 (09:00→21:46)
[2016-08-25] MEDS: SODIUM CHLORIDE 0.9% FLUSH 10 ML FLUSH IV FLUSH SCH ×2 (09:00→21:46)
[2016-08-25] MEDS: ASPIRIN EC 81 MG TABEC PO SCH (09:02)
[2016-08-25] MEDS: amLODIPine BESYLATE 5 MG TAB PO SCH (09:02)
[2016-08-25] MEDS: PANTOPRAZOLE SOD 40 MG DELAYED RELEASE TAB PO SCH (09:02)
[2016-08-25] MEDS: CLOPIDOGREL 75 MG TAB PO SCH (09:02)
[2016-08-25] MEDS: METOPROLOL TARTRATE 25 MG TAB PO SCH ×2 (09:02→21:46)
[2016-08-25] MEDS: CHOLECALCIFEROL (VIT D3) 5000 UNIT CAP PO SCH (09:02)
[2016-08-25] MEDS: FLUoxetine HCL 20 MG CAP PO SCH (09:02)
[2016-08-25] MEDS ORDERED: HEPARIN SODIUM - IV 10,000 UNITS/10 ML VIAL ONE (09:17)
[2016-08-25] MEDS ORDERED: MIDAZOLAM HCL 2 MG/2 ML VIAL ONE (09:17)
[2016-08-25] MEDS ORDERED: HEPARIN-NS/PF INJ 500 ML ONE ×2 (09:17→10:02)
[2016-08-25] MEDS ORDERED: IOHEXOL 350 MG/ML 100 ML BTL (for Cath Lab) OTHER ONE (09:41)
[2016-08-25] MEDS ORDERED: SODIUM CHLOR 0.9% 250 ML INJ 250 ML IV PRN (11:00)
[2016-08-25] MEDS ORDERED: ATROPINE SULFATE 1 MG/ML VIAL IV PRN (11:00)
[2016-08-25] MEDS ORDERED: MISC INFORMATION XX ONE (11:00)
--- NOTE | 2016-08-25 11:00 | CATHPROC ---
[facility] HIS Report Study Information Study Number Admission Scheduled Start Study Start [id number] Aug 22 2016 5:10PM 08/24/2016 Aug 25 2016 9:10AM [place] Service Cardiac Catheterization Admit Source Facility Department Emergency department [facility] - Secondary School Teacher Librarian Physician and Clinical Staff Initial Chidi Cristobal Boarding Kennel Or Cattery Operator Yamila Ross,SHALOM Boarding Kennel Or Cattery Operator Sofie Hernandez RN Other Lu Barrett RCIS TECH2 Recorder Power Joe RT(R) Scrub Guilherme Lawrence RCIS(BS) Procedures Performed Procedure Location (Site) Vessel Name Coronary Angiograms LCA Left Coronary Coronary Angiograms RCA Right Coronary Coronary Angiograms SVG-PDA Right Coronary Coronary Angiograms SVG-RCA Right Coronary Wire insertion Fem Art (right) Femoral Art Equipment Time Rn Documentation Specialist Description Size Mfg Part Number Used/Scraped TextCorner CATHETER, FR.7 BALLOON [id number] 09:26 FR 7 Used INC. WEDGE PRESSURE *[id number] 09:13 NIETO PERRY SWAN BETY CATHETER FR 7 Used *[id number] TRANSDUCER, TRUWAVE [id number] 09:13 NIETO PERRY * Used W/STOCKCOCK *[id number] TRANSDUCER, TRUWAVE [id number] 09:13 NIETO PERRY * Used W/STOCKCOCK *[id number] WIRE, GUIDE AMPLATZ STIFF [id number] 09:52 COOK/PACER 3MMJ Used 180CM *[id number] *[id number] [id number] *[id number] [id number] *[id number] 09:13 Training Advisor INDUSTRIES PACK, CCL CUSTOM * Used *[id number] 09:13 Modlar MEDICAL SHEATH, FR5.5 PRELUDE 11CM FR 5 [id number] Used [id number] 09:13 Modlar MEDICAL WIRE, 3MMJ .035 180CM 180CM Used *[id number] 10:22 Modlar MEDICAL WIRE, EXCHANGE 260CM 3MMJ 260CM Used *[id number] 09:13 NAMIC MANIFOLD, 2 PORT * Used *[id number] 09:13 NAMIC MANIFOLD, 4 PORT * Used *[id number] 09:13 NYCOMED OMNIPAQUE, 350 MG, 150ML 150ML [id number] Used [id number] 09:13 DELEON MEDICAL BLANKET,WARM AIR CCL * Used *[id number] 09:50 TERUMO MEDICAL SHEATH, FR6 TERUMO (10CM) FR 6 [id number] Used 09:13 TERUMO MEDICAL SHEATH, FR7 TERUMO (10CM) FR 7 [id number] Used 10:24 V[employer]ULAR SOL[employer]IONS PIGTAIL DUAL LUMEN CATHETER FR 6 5540 *[id number] Used Equipment Model, Serial, Lot Number and Expiration Data Description Model Number Serial Number Lot Number Expiration Date WIRE, GUIDE AMPLATZ STIFF [id number] 03-08-2021 180CM History: Current Medications Medication Dosage/Unit Route Frequency Last Date/Time Taken LIPITOR LOPRESSOR NORVASC ASA PLAVIX History: Allergies Allergy Reaction Codeine ITCH History: Risk Factors Family History of Hypertension Dyslipidemia Previous MS Previous Heart Failure Premature CAD Yes Yes Yes Yes Yes Prior Valve Prior PCI Prior PCIDate Prior CABG Prior CABGDate Surgery No Yes 08/22/2011 Yes 08/22/2011 Cerebrovascular Peripheral Artery Chronic Lung On Dialysis Diabetes Diabetes Therapy Disease Disease Disease No Yes Yes No Yes Diet History: Symptoms/Diagnosis Selection Items Chest pain SOB History: CV Disease Selection Items Known CAD MS History: Stress Tests Stress or Imaging Studies Performed No History: Other Disease Selection Items CAD HTN History: Other Current Smoker Method Quit Packs a Day Years Used Pack Years No Cigarettes 2 Years Ago 1 25 25 Labs Hgb (g/dl) Hct (%) RBC (MIL/MM3) WBC (l/cumm) Platelets (thousands) 11.60-17.00 35.00-51.00 4.00-5.90 4.00-11.00 150.00-450.00 10.1 31.1 3.8 6 386 Glucose (mg/dl) BUN (mg/dl) Creatinine (mg/dl) BUN:Creatinine (1:x) 74.00-106.00 7.00-18.00 0.50-1.30 10.00-20.00 129 20 1.1 18.2 Na (meq/l) K (meq/l) Cl (meq/l) CO2 (mmol/L) Ca (mg/dl) 136.00-145.00 3.50-5.10 98.00-107.00 21.00-32.00 8.50-10.10 142 3.7 104 26.3 8.6 Troponin I (ng/ml) CPK (u/l) CPK-MB (ng/ML) 0.02-0.05 26.00-308.00 0.50-3.60 0.02 26 Not Drawn Medication Medication Total Dose (Bolus/Oral) Medication Total Dosage/Unit 1% XYLOCAINE 20 mL FENTANYL 25 mcg VERSED 0.5 mg Medications (Bolus/Oral) Medication Time Given Dosage/Unit Administered By Reason 1% XYLOCAINE 08/25/2016 9:42:18 AM 20 mL Chidi Valentin 20 mL 1% XYLOCAINE given in lab by Chidi Valentin in Right Groin via Subcutaneous. FENTANYL 08/25/2016 9:46:35 AM 25 mcg Yamila Ross 25 mcg FENTANYL given in lab by Yamila Ross RN in Right Antecubital via Peripheral IV. VERSED 08/25/2016 10:09:28 AM 0.5 mg Yamila Ross 0.5 mg VERSED given in lab by Yamila Ross RN in Right Antecubital via Peripheral IV. Medication (Drip) Medication Time Given Dosage/Unit Concentration/Unit Diluent (ml) Solution IV Solutions 08/25/2016 9:13:54 AM 0 mL (IV) 1000 NaCl .9 IV Solutions given in lab by Sofie Hernandez RN in Right Antecubital via Peripheral IV. Pump/Drip Bjorn w = 20 ml/hr using NaCl .9. Initial Case Assessment Cardiovascular HR Rhythm NIBP Chest Pain 73 Irregular 136/79 0 Edema Present Skin color Skin None Normal Warm Dry Circulatory - Right Pulses Dorsalis Pedis Femoral 2 2 Scale (0,1,2,3,4,d) Circulatory - Left Pulses Dorsalis Pedis Femoral d 1 Scale (0,1,2,3,4,d) Neurological State Oriented to time-place- Alert Moves all extremities person Respiration - General Respiration Rate SpO2 (%) O2 (lpm) (B/min) 17 96 0 Final Case Assessment Cardiovascular HR Rhythm NIBP Chest Pain 61 Irregular 11/76 0 Edema Present Skin color Skin None Normal Warm Dry Circulatory - Right Pulses Dorsalis Pedis Femoral 2 2 Scale (0,1,2,3,4,d) Circulatory - Left Pulses Dorsalis Pedis Femoral d 1 Scale (0,1,2,3,4,d) Neurological State Oriented to time-place- Alert Moves all extremities person Respiration - General Respiration Rate SpO2 (%) O2 (lpm) (B/min) 24 96 0 Chronological Log Time Study Chronological Log 9:10:45 Patient arrived via Bed. 9:10:48 Patient Name, D.O.B, / Armband Verified By R.N. 9:10:49 Consent signed by the physician and the patient and verified by the Secondary School Teacher Librarian staff. 9:10:50 Pre-op and post- op instructions given; patient acknowledges understanding of instructions. 9:10:51 Verbal Stimulation=2 Physical Stimulation=2 Airway=2 Respiration=2 TOTAL=8. (0=absent, 1=li mited, 2=present) 9:13:06 Presedation assessment performed by Secondary School Teacher Librarian RN. 9:13:09 Patient has been NPO for More than 6Hrs. 9:13:10 Skin Breakdown- none per patient. 9:13:22 Patient Warmer Placed on the Table. 9:13:25 Shalonda Prominences Protected 9:13:35 A # 20 IV was noted in the Antecubital (right). Grade = 0 IV Solutions given in lab by Sofie Hernandez, RN in Right Antecubital via Peripheral IV. Pump/Dr ip Flow = 20 ml/hr using 9:13:54 NaCl .9. 9:13:56 History and physical on the chart or being dictated. Assessment: Initial Case, HR=73 BPM, Rhythm=Irregular, XCQC=993/79 mmhg, Chest Pain=0, Edema=No ne, Color=Normal, Skin = Warm, Dry Right Pulses: Philippe Ped=2, Femoral=2 9:13:57 Left Pulses: Philippe Ped=d, Femoral=1 Neurological: State=Alert, Ox3, [place] Respiration: Resp=17 B/min, SpO2=96 %, O2=0 lpm Vitals capture started with the following parameters, Patient=Adult, Interval=5 min, Initial Pr gdcvop=423 mmHg, 9:13:59 Deflation Rate=5 mmHg 9:15:02 HR=65 bpm, AFYU=113/79 mmhg, SpO2=97.0 %, Resp=1 B/min, Pain=0, Adeline=10, Roy=2 9:19:36 HR=68 bpm, SWSW=411/81 mmhg, SpO2=96.0 %, Resp=13 B/min, Pain=0, Adeline=10, Roy=2 9:25:04 HR=62 bpm, ANZO=481/97 mmhg, SpO2=98.0 %, Resp=15 B/min, Pain=0, Adeline=10, Roy=2 9:26:36 Right groin prepped with 2% chlorhexidine, and with a 3 min. waiting time. 9:27:06 MD paged 9:29:39 HR=62 bpm, REMN=634/78 mmhg, SpO2=96.0 %, Resp=19 B/min, Pain=0, Adeline=10, Roy=2 9:31:02 Pressure channel 1 zeroed. 9:32:26 Pressure channel 2 zeroed. 9:34:10 MD arrived. 9:34:38 HR=66 bpm, VQWU=559/72 mmhg, SpO2=94.0 %, Resp=28 B/min, Pain=0, Adeline=10, Roy=2 9:39:35 HR=63 bpm, LLZU=659/84 mmhg, SpO2=95.0 %, Resp=14 B/min, Pain=0, Adeline=10, Roy=2 Time Out. Correct patient, correct procedure,correct physician, ,power injector loaded or not l oaded with contrast with 9:39:52 surgical team present. Time Out Concurred by MD, individual staff and DROP CREW LABORER in procedure 9:40:38 Case Start 9:42:18 20 mL 1% XYLOCAINE given in lab by Chidi Valentin in Right Groin via Subcutaneous. 9:44:36 HR=70 bpm, UIJW=742/80 mmhg, SpO2=98.0 %, Resp=12 B/min, Pain=0, Adeline=10, Roy=2 9:46:35 25 mcg FENTANYL given in lab by Yamila Ross, RN in Right Antecubital via Peripheral IV. 9:47:42 Access site was Right Femoral Artery. 9:49:33 HR=70 bpm, VEGT=362/92 mmhg, SpO2=99.0 %, Resp=21 B/min, Pain=0, Adeline=10, Roy=2 9:52:41 Wire removed 9:52:42 A WIRE, GUIDE AMPLATZ STIFF 180CM 3MMJ was inserted via Fem Art (right). 9:52:55 A SHEATH, FR6 TERUMO (10CM) FR 6 was advanced into the Fem Art (right) using the Percutaneou s technique. 9:54:40 HR=65 bpm, NIBP=96/56 mmhg, SpO2=99.0 %, Resp=16 B/min, Pain=0, Adeline=10, Roy=2 9:56:05 Access site was Right Femoral Vein. 9:57:12 A SHEATH, FR7 TERUMO (10CM) FR 7 was advanced into the Fem Vein (right) using the Percutaneo us technique. 9:57:49 Reference ECG taken 9:58:32 An injection in the Fem Art (right) was made through the SHEATH, FR6 TERUMO (10CM) FR 6. 9:59:31 HR=66 bpm, WHUD=727/78 mmhg, SpO2=98.0 %, Resp=18 B/min, Pain=0, Adeline=10, Roy=2 9:59:58 A SWAN BETY CATHETER FR 7 was inserted via Fem Vein (right) Recorded Pressure: PCW, HR=72, Condition=Condition 1 10:02:06 (Pulmonary Capillary Wedge) PCW 23/26/20 10:02:50 Saturation: Site=PA (Pulmonary Artery) , O2=51.9 %, Hgb=10.1 gm/dl, Condition=Condition 1. Used in calculation. 10:04:00 Saturation: Site=Ao (Aorta) , O2=97.9 %, Hgb=10.1 gm/dl, Condition=Condition 1. Used in mackenzie culation. Recorded Pressure: MPA, HR=62, Condition=Condition 1 10:04:17 (Main Pulmonary Artery) MPA 35/16/27 10:04:34 HR=59 bpm, GKMT=110/78 mmhg, SpO2=97.0 %, Resp=12 B/min, Pain=0, Adeline=10, Roy=2 Recorded Pressure: RV, HR=63, Condition=Condition 1 10:05:54 (Right Ventricle) RV 47/3/8 Recorded Pressure: RA, HR=62, Condition=Condition 1 10:06:21 (Right Atrium) RA 10:06:54 [place] Bety Catheter Removed A JR 4.0 INFINITI CATHETER FR 6 was advanced over a wire. OMNIPAQUE, 350 MG, 150ML 150ML was us ed for 10:08:22 injections. 10:09:28 0.5 mg VERSED given in lab by Yamila Ross RN in Right Antecubital via Peripheral IV. 10:09:39 HR=69 bpm, RYND=315/76 mmhg, SpO2=98.0 %, Resp=17 B/min, Pain=0, Adeline=10, Roy=2 10:10:13 The RCA was injected and visualized at various angles. OMNIPAQUE, 350 MG, 150ML 150ML used . 10:10:37 The SVG-RCA was injected and visualized at various angles. OMNIPAQUE, 350 MG, 150ML 150ML u sed. Recorded Pressure: Ao, HR=60, Condition=Condition 1 10:10:54 (Aorta) Ao 156/69/103 10:12:32 The SVG-PDA was injected and visualized at various angles. OMNIPAQUE, 350 MG, 150ML 150ML u sed. After removing the current catheter a JL 4.0 INFINITI CATHETER FR 6 was advanced over a WIRE, 3 MMJ .035 180CM 10:13:34 180CM. 10:14:40 HR=70 bpm, XOXF=478/68 mmhg, SpO2=94.0 %, Resp=11 B/min, Pain=0, Adeline=10, Roy=2 10:16:23 The LCA was injected and visualized at various angles. OMNIPAQUE, 350 MG, 150ML 150ML used . After removing the current catheter a AL 1 INFINITI CATHETER FR 6 was advanced over a WIRE, 3MM J .035 180CM 10:19:26 180CM. 10:19:35 HR=63 bpm, KFAC=165/88 mmhg, SpO2=90.0 %, Resp=12 B/min, Pain=0, Adeline=10, Roy=2 10:21:50 The previous wire was exchanged for a WIRE, EXCHANGE 260CM 3MMJ 260CM. After removing the current catheter a PIGTAIL DUAL LUMEN CATHETER FR 6 was advanced over a WIRE , EXCHANGE 10:23:23 260CM 3MMJ 260CM. 10:24:40 HR=80 bpm, NIBP=97/69 mmhg, SpO2=98.0 %, Resp=12 B/min, Pain=0, Adeline=10, Roy=2 Recorded Pressure: LV, HR=64, Condition=Condition 1 10:25:11 (Left Ventricle) LV 160/5/17 Recorded Pressure: LV, Ao, HR=64, Condition=Condition 1 10:26:22 (Left Ventricle) LV 165/5/17, (Aorta) Ao 150/65/99 Recorded Pressure: LV, Ao, Ao, HR=63, Condition=Condition 1 (Left Ventricle) LV 166/2/12, 10:28:05 (Aorta) Ao 163/63/103, (Aorta) Ao 137/49/83 10:28:34 Catheter was removed 10:29:35 HR=65 bpm, YKVH=038/76 mmhg, SpO2=95.0 %, Resp=18 B/min, Pain=0, Adeline=10, Roy=2 10:30:23 Case End Assessment: Final Case, HR=61 BPM, Rhythm=Irregular, NIBP=11/76 mmhg, Chest Pain=0, Edema=None, Color=Normal, Skin = Warm, Dry Right Pulses: Philippe Ped=2, Femoral=2 10:31:40 Left Pulses: Philippe Ped=d, Femoral=1 Neurological: State=Alert, Ox3, [place] Respiration: Resp=24 B/min, SpO2=96 %, O2=0 lpm 10:34:38 HR=65 bpm, ANQA=421/78 mmhg, SpO2=95.0 %, Resp=11 B/min, Pain=0, Adeline=10, Roy=2 10:35:56 Sheath removed; pressure applied to access site. 10:37:02 No case complications noted. 10:37:05 Cine recording checked. 10:39:44 HR=60 bpm, FEGF=676/72 mmhg, SpO2=96.0 %, Resp=13 B/min, Pain=0, Adeline=10, Roy=2 10:41:17 Bedside Report will be given. 10:41:24 A Left and Right Heart Cath was performed. 10:44:38 HR=68 bpm, FYGC=494/111 mmhg, SpO2=95.0 %, Resp=13 B/min, Pain=0, Adeline=10, Roy=2 10:50:03 Sheath removed; pressure applied to access site. 10:50:31 HR=62 bpm, SCWZ=372/73 mmhg, SpO2=97.0 %, Resp=15 B/min, Pain=0, Adeline=10, Roy=2 10:54:32 HR=75 bpm, NIBP=97/80 mmhg, SpO2=96.0 %, Resp=16 B/min, Pain=0, Adeline=10, Roy=2 10:58:14 Vitals capture stopped. 10:58:18 Sterile dressing applied to site 11:00:08 Patient moved to stretcher End Study - Contrast Media Used In Study Contrast Total Opened (mL) Total Used (mL) Total Wasted (mL) Omnipaque 150 60 90 End Study - Maximum Contrast Load Max Contrast Load (mL) 347.7 End Study - Radiation Exposure Fluoro Time (minutes) 11.5 End Study - Patient Disposition Complications Transferred To Interventional Outcome No Telemetry Bed No attempt made
--- NOTE | 2016-08-25 11:51 | HHI.PR ---
Subjective Remarks back from cardiac cath- tolerated procedure well no complains overnight- good night telemetry- remains in a fib Objective Vitals Vital Signs Date Time Temp Pulse Resp B/P Pulse Ox O2 Delivery O2 Flow Rate FiO2 08/25/16 08:00 98.3 64 20 135/81 97 08/25/16 08:00 97 Room Air 08/25/16 05:53 98.1 68 16 136/76 98 08/25/16 05:00 67 08/25/16 04:00 59 08/25/16 03:00 63 08/25/16 02:00 64 08/25/16 01:00 60 08/25/16 00:00 62 08/24/16 23:00 65 08/24/16 23:00 98.1 70 16 113/70 98 08/24/16 22:00 64 08/24/16 21:00 58 08/24/16 20:30 97.0 54 16 117/84 97 08/24/16 20:30 99 Room Air 08/24/16 20:00 54 08/24/16 19:00 54 08/24/16 17:39 98.0 64 20 147/74 99 08/24/16 17:19 99 Nasal Cannula 1.50 08/24/16 17:00 62 08/24/16 16:45 69 08/24/16 15:12 98.8 69 146/76 99 08/24/16 15:00 72 08/24/16 13:00 54 I/O 08/24/16 08/24/16 08/24/16 08/25/16 08/25/16 08/25/16 07:00 15:00 23:00 07:00 15:00 23:00 Intake Total 360 ml 480 ml Output Total 700 ml Balance 360 ml -220 ml Intake Oral 360 ml 480 ml Output Urine Total 700 ml Stool Total 0 ml # Voids 2 4 # Bowel Movements 1 Result Diagram: 08/23/16 0550 08/23/16 0550 Imaging Last Impressions Chest X-Ray 08/22/16 4321 Signed Impressions: Service Date/Time: Monday, August 22, 2016 14:51 - CONCLUSION: 1. Mild pulmonary edema pattern with small effusions. Postoperative CABG. Robert Gilliland MD Objective Remarks awake and alert NAD anicteric lungs no rales or wheezes irregular rhythm, 4/6 systolic murmur left sternal border abdomen soft, nontender extremities no edema right groin- no hematoma, good peripheral pulses neuro exam- unremarkable Procedures 08/25- cardiac cath- A/P Assessment and Plan Ms. White is a pleasant 71-year-old patient female with a history of hypertension, hypothyroidism, moderate to severe aortic stenosis who presents to the emergency department due to shortness of breath that started around 2 AM on 08/22/2016. Patient had a brief episode of chest pressure as well. - Acute Congestive heart failure with preserved left ventricular ejection fraction -- likely due to New onset a fib - Moderate to severe aortic stenosis - Atrial fibrillation, new onset- rate controlled `-resolved after 40 mg IV Lasix at ER - Appears to be a new finding. Previous EKG from 2016 does not show Afib - [id number] score at least 3 (Age, female, HTN), higher if CHF is considered in the calculation as well. - Currently rate is controlled. Patient would benefit from switching from Plavix to warfarin or preferably newer anti-coagulants such as Apixaban. - S/P cardiac cath- 08/25- - Echocardiogram from January 2016 indicates preserved ejection fraction but moderate to severe aortic stenosis. - d/w Dr Noel- cardiology ff. Thinks new onset CHF in from acute a fib and not from - On BB - will d/w OAC choice - ff BMP - Carotid artery stenosis - status post 3 cardiac stents last one in 2011 and status post carotid endarterectomy, carotid stent placement - Continue aspirin 81 mg, Plavix 75 mg, atorvastatin 40 mg. - Hypertension - continue amlodipine 2.5 mg daily, metoprolol 25 mg by mouth twice a day - Hypothyroidism - continue levothyroxine 112 g daily. ADD Right eye irritation/slight erythema- with transient visual field defect - per patient history of old infarct with some visual field defect - get Opthalmology consult for evaluation - get a head CT - Neurology consulted - ill d/w Cardiology OAC after full neurologic evaluation Full code. Lovenox 40mg Qday. Marixa Heredia MD Aug 25, 2016 11:51 Problem Qualifiers (1) CHF exacerbation: Qualified Code: I50.9 - Acute on chronic congestive heart failure, unspecified congestive heart failure type Marixa Heredia MD Aug 25, 2016 11:51
--- NOTE | 2016-08-25 15:05 | RADRPT ---
EXAM DATE/TIME: 08/25/2016 14:51 [facility] COMPARISON: CT BRAIN W/O CONTRAST, January 28, 2016, 16:42. INDICATIONS : Sudden onset loss of vision in right eye during cardiac catherization. History of stroke. RADIATION DOSE: 56.35 CTDIvol (mGy) MEDICAL HISTORY : Cardiovascular disease. Cerebrovascular disease. SURGICAL HISTORY : Hysterectomy. Appendectomy. ENCOUNTER: Initial ACUITY: 1 day PAIN SCALE: 0/10 LOCATION: cranial TECHNIQUE: Multiple contiguous axial images were obtained of the head. Using automated exposure control and adj ustment of the mA and/or kV according to patient size, radiation dose was kept as low as reasonably a chievable to obtain optimal diagnostic quality images. DICOM format image data is available electro nically for review and comparison. FINDINGS: CEREBRUM: The ventricles are normal for age. No evidence of midline shift, mass lesion, hemorrhage or acute in farction. There is a moderate area of encephalomalacia involving the medial left occipital lobe rashmi cteristic of an old infarct. There is a stable old infarct involving the left thalamic area. No extra -axial fluid collections are seen. POSTERIOR FOSSA: The cerebellum and brainstem are intact. The 4th ventricle is midline. The cerebellopontine angle i s unremarkable. EXTRACRANIAL: The visualized portion of the orbits is intact. SKULL: The calvaria is intact. No evidence of skull fracture. CONCLUSION: 1. No acute intracranial hemorrhage. 2. Old left thalamic infarct. 3. Old left infarct involving the medial left occipital lobe. Broderick Hinojosa MD on August 25, 2016 at 15:00 Board Certified Radiologist. This report was verified electronically.
[2016-08-25] MEDS: ACETAMINOPHEN 325 MG TAB PO PRN (15:33)
--- NOTE | 2016-08-25 15:55 | PD.CONS ---
History of Present Illness Service Ophthalmology Consult Requested By Cardiology Reason for Consult decreased peripheral vision OD Primary Care Physician Non-Staff Diagnoses: History of Present Illness 71 yo F with a history of hypertension, hypothyroidism, moderate to severe aortic stenosis who presents to the ED due to shortness of breath. She was diagnosed with new onset A Fib, and had a cardiac cath this morning. Pt states her right eye was irritated yesterday (she just had cataract surgery in her right eye 1 month ago from a physician at [facility]). After her cath today, the nurse noticed her right eye was red. The patient also felt she had a peripheral visual defect in her right eye temporally. Patient has a history of a CVA last Nov in her left temporal lobe. Her said she had a Hua Visual Field test by her cloth stretcher who detected peripheral visual defects bilaterally at that time. Past Family Social History Allergies: Coded Allergies: Codeine (Verified Allergy, Unknown, ITCH, 08/22/16) Physical Exam Vital Signs Vital Signs Date Time Temp Pulse Resp B/P Pulse Ox O2 Delivery O2 Flow Rate FiO2 08/25/16 14:31 98 08/25/16 11:00 98.5 68 20 121/84 98 08/25/16 08:00 98.3 64 20 135/81 97 08/25/16 08:00 97 Room Air 08/25/16 05:53 98.1 68 16 136/76 98 08/25/16 05:00 67 08/25/16 04:00 59 08/25/16 03:00 63 08/25/16 02:00 64 08/25/16 01:00 60 08/25/16 00:00 62 08/24/16 23:00 65 08/24/16 23:00 98.1 70 16 113/70 98 08/24/16 22:00 64 08/24/16 21:00 58 08/24/16 20:30 97.0 54 16 117/84 97 08/24/16 20:30 99 Room Air 08/24/16 20:00 54 08/24/16 19:00 54 08/24/16 17:39 98.0 64 20 147/74 99 08/24/16 17:19 99 Nasal Cannula 1.50 08/24/16 17:00 62 08/24/16 16:45 69 Physical Exam Va cc at near OD 20/25, OS 20/200 EOM full OU, no diplopia CVF OD temporal defect, OS nasal defect Pupils 2-1 no APD OU IOP 15, 13 mm Hg Anterior exam OD - normal eyelid, subconj heme, K clear, AC deep, pupil round, PCIOL OS - normal eyelid, C/S W&Q, K clear, AC deep, pupil round, +NS Dilated exam OD - ON s/p/f, ves normal, vit clear, retina flat OS - ON s/p/f, ves normal, vit clear, retina flat Result Diagram: 08/23/1654908/23/16549 Assessment and Plan Problem List: (1) Nuclear sclerotic cataract of left eye Status: Acute Plan: Follow up as outpatient for surgery. (2) Visual field loss following cerebrovascular accident (CVA) Status: Acute Plan: Most likely due to old CVA from 2016. Recommend repeat visual field test as outpatient. (3) Pseudophakia of right eye Status: Acute Plan: Healing well. No sign of infection or inflammation. (4) Subconjunctival hemorrhage of right eye Status: Acute Plan: Reassured patient - will reabsorb within 1-2 weeks. Eileen Jimenez MD Aug 25, 2016 15:55
--- NOTE | 2016-08-25 16:25 | PD.CARD.PN ---
Subjective Subjective Remarks Patient seen post-cath earlier Concern for possible peripheral vision deficits No chest pain, no shortness of breath Objective Medications Current Medications Medications (Trade) Dose Ordered Sig/Isai Route Start Time Stop Time Status Last Admin (NS Flush) 2 ml UNSCH PRN IV FLUSH 08/22/16 17:30 (NS Flush) 2 ml BID IV FLUSH 08/22/16 21:00 08/24/16 23:22 (Tylenol) 650 mg Q4H PRN PO 08/22/16 17:30 08/25/16 15:33 (Zofran Inj) 4 mg Q6H PRN IVP 08/22/16 17:30 (Narcan Inj) 0.4 mg UNSCH PRN IV 08/22/16 17:30 (Beth-Colace) 1 tab BID PO 08/22/16 21:00 08/23/16 09:04 (Milk Of Magnesia Liq) 30 ml Q12H PRN PO 08/22/16 17:30 (Senokot) 17.2 mg Q12H PRN PO 08/22/16 17:30 (Dulcolax Supp) 10 mg DAILY PRN RECTAL 08/22/16 17:30 (Lactulose Liq) 30 ml DAILY PRN PO 08/22/16 17:30 (Lipitor) 40 mg HS PO 08/22/16 21:00 08/24/16 23:14 (Vitamin D3) 5,000 units DAILY PO 08/23/16 09:00 08/25/16 09:02 (PROzac) 20 mg DAILY PO 08/23/16 09:00 08/25/16 09:02 (Synthroid) 112 mcg DAILY@06 PO 08/23/16 06:00 08/25/16 05:56 (Ativan) 0.5 mg Q6H PRN PO 08/22/16 19:30 08/24/16 23:21 (Lopressor) 25 mg BID PO 08/22/16 21:00 08/25/16 09:02 (Protonix) 40 mg DAILY PO 08/23/16 09:00 08/25/16 09:02 (Ecotrin Ec) 81 mg DAILY PO 08/23/16 09:00 08/25/16 09:02 (Norvasc) 2.5 mg DAILY PO 08/23/16 09:00 08/25/16 09:02 (Plavix) 75 mg DAILY PO 08/24/16 09:00 08/25/16 09:02 (Melatonin) 5 mg HS PRN PO 08/23/16 22:00 08/24/16 23:15 Atropine Sulfate 0.5 mg 0.5 mg UNSCH PRN IV 08/25/16 11:00 (NS 250 ml Inj) 250 ml @ 500 mls/hr ONCE PRN IV 08/25/16 11:00 08/26/16 10:59 Vital Signs / I&O Vital Signs Date Time Temp Pulse Resp B/P Pulse Ox O2 Delivery O2 Flow Rate FiO2 08/25/16 14:31 98 08/25/16 11:00 98.5 68 20 121/84 98 08/25/16 08:00 98.3 64 20 135/81 97 08/25/16 08:00 97 Room Air 08/25/16 05:53 98.1 68 16 136/76 98 08/25/16 05:00 67 08/25/16 04:00 59 08/25/16 03:00 63 08/25/16 02:00 64 08/25/16 01:00 60 08/25/16 00:00 62 08/24/16 23:00 65 08/24/16 23:00 98.1 70 16 113/70 98 08/24/16 22:00 64 08/24/16 21:00 58 08/24/16 20:30 97.0 54 16 117/84 97 08/24/16 20:30 99 Room Air 08/24/16 20:00 54 08/24/16 19:00 54 08/24/16 17:39 98.0 64 20 147/74 99 08/24/16 17:19 99 Nasal Cannula 1.50 08/24/16 17:00 62 08/24/16 16:45 69 I/O 08/24/16 08/24/16 08/24/16 08/25/16 08/25/16 08/25/16 07:00 15:00 23:00 07:00 15:00 23:00 Intake Total 360 ml 480 ml Output Total 700 ml Balance 360 ml -220 ml Intake Oral 360 ml 480 ml Output Urine Total 700 ml Stool Total 0 ml # Voids 2 4 # Bowel Movements 1 Physical Exam GENERAL: NAD, AAOx3 SKIN: Warm and dry. HEAD: Atraumatic. Normocephalic. EYES: Pupils equal and round. No scleral icterus. Right eye scleral hemorrhage ENT: No nasal bleeding or discharge. Mucous membranes pink and moist. NECK: Trachea midline. No JVD. CARDIOVASCULAR: Irregularly irregular. 3/6 crescendo-decrescendo murmur to the RSB RESPIRATORY: No accessory muscle use. Clear to auscultation. Breath sounds equal bilaterally. GASTROINTESTINAL: Abdomen soft, non-tender, nondistended. Hepatic and splenic margins not palpable. MUSCULOSKELETAL: Extremities without clubbing, cyanosis, or edema. No obvious deformities. NEUROLOGICAL: Awake and alert. No obvious cranial nerve deficits. Motor grossly within normal limits. Five out of 5 muscle strength in the arms and legs. Normal speech. PSYCHIATRIC: Appropriate mood and affect; insight and judgment normal. Laboratory Laboratory Tests Test 08/23/16 05:50 White Blood Count 6.0 TH/MM3 (4.0-11.0) Red Blood Count 3.79 MIL/MM3 (4.00-5.30) Hemoglobin 10.1 GM/DL (11.6-15.3) Hematocrit 31.1 % (35.0-46.0) Mean Corpuscular Volume 82.0 FL (80.0-100.0) Mean Corpuscular Hemoglobin 26.5 PG (27.0-34.0) Mean Corpuscular Hemoglobin 32.3 % Concent (32.0-36.0) Red Cell Distribution Width 15.7 % (11.6-17.2) Platelet Count 386 TH/MM3 (150-450) Mean Platelet Volume 8.0 FL (7.0-11.0) Neutrophils (%) (Auto) 57.7 % (16.0-70.0) Lymphocytes (%) (Auto) 29.4 % (9.0-44.0) Monocytes (%) (Auto) 9.5 % (0.0-8.0) Eosinophils (%) (Auto) 2.8 % (0.0-4.0) Basophils (%) (Auto) 0.6 % (0.0-2.0) Neutrophils # (Auto) 3.4 TH/MM3 (1.8-7.7) Lymphocytes # (Auto) 1.8 TH/MM3 (1.0-4.8) Monocytes # (Auto) 0.6 TH/MM3 (0-0.9) Eosinophils # (Auto) 0.2 TH/MM3 (0-0.4) Basophils # (Auto) 0.0 TH/MM3 (0-0.2) CBC Comment DIFF FINAL Differential Comment Sodium Level 142 MEQ/L (136-145) Potassium Level 3.7 MEQ/L (3.5-5.1) Chloride Level 104 MEQ/L (98-107) Carbon Dioxide Level 26.3 MEQ/L (21.0-32.0) Anion Gap 12 MEQ/L (5-15) Blood Urea Nitrogen 20 MG/DL (7-18) Creatinine 1.10 MG/DL (0.50-1.00) Estimat Glomerular Filtration 49 ML/MIN (>89) Rate Random Glucose 129 MG/DL (74-106) Calcium Level 8.6 MG/DL (8.5-10.1) Assessment and Plan Problem List: (1) CHF exacerbation (2) CAD (coronary artery disease) (3) Aortic stenosis (4) New onset a-fib Assessment and Plan 1) Shortness of breath/acute CHF exacerbation Most likely do to new onset atrial fibrillation Cardiac cath showing no significant CAD/bypass grafts open, Moderate ( mean grad 22, HECTOR 1.09), Mild PHTN Will hold off on consideration of AVR/TAVR for now 2) Post-cath, concern for peripheral visual field deficits, unsure if old Ophthalmology consulted, discussed case with Dr. Jimenez at bedside Neurology consulted, discussed case with Dr. Dale, CT head and he will see 3) Will consider anti-coagulation for new onset Afib, CHADSVASc = 7, will wait for neurology evaluation Problem Qualifiers (1) CHF exacerbation: Qualified Code: I50.9 - Acute on chronic congestive heart failure, unspecified congestive heart failure type Chidi Valentin DO Aug 25, 2016 16:25
--- NOTE | 2016-08-25 16:45 | ECHRPT ---
Indication: SHORTNESS OF BREATH CONCLUSIONS Normal left ventricular size. Wall thickness is normal. The left ventricular systolic function is grossly normal on limited imaging. No regional wall motion abnormalities are present. This study was not technically sufficient to allow for evaluation of left ventricular diastolic func tion. Moderate thickening of the aortic valve leaflets. Moderate aortic valve regurgitation. Moderate aortic valve stenosis. Mild thickening of the mitral valve leaflets. Mitral annular calcification is present. No mitral valve stenosis. Structurally normal tricuspid valve. There is mild tricuspid valve regurgitation. Normal estimated pulmonary pressures. BP: 135 / 81 HR: 64 Rhythm: Atrial fibrillation MEASUREMENTS (Male / Female) Normal Values Technical Quality:Good 2D ECHO LV Diastolic Diameter PLAX 4.3 cm 4.2 - 5.9 / 3.9 - 5.3 cm LV Systolic Diameter PLAX 2.8 cm IVS Diastolic Thickness 0.8 cm 0.6 - 1.0 / 0.6 - 0.9 cm LVPW Diastolic Thickness 0.8 cm 0.6 - 1.0 / 0.6 - 0.9 cm LV Relative Wall Thickness 0.4 RV Internal Dim ED PLAX 3.5 cm LVOT Diameter 2.1 cm Aortic Root Diameter 3.1 cm LA Systolic Diameter LX 3.8 cm 3.0 - 4.0 / 2.7 - 3.8 cm DOPPLER AV Peak Velocity 317.3 cm/s AV Peak Gradient 40.3 mmHg AV Mean Gradient 20.7 mmHg AV Velocity Time Integral 68.1 cm AI Peak Velocity 503.0 cm/s AI Peak Gradient 101.2 mmHg AI Pressure Half Time 697.5 ms LVOT Peak Velocity 84.6 cm/s LVOT Peak Gradient 2.9 mmHg LVOT Velocity Time Integral 16.7 cm LVOT Cardiac Index 1978.2 cm/minm AV Area Cont Eq vti 0.8 cm AV Area Cont Eq pk 0.9 cm Mitral E Point Velocity 142.5 cm/s LV E' Lateral Velocity 7.2 cm/s Mitral E to LV E' Lateral Ratio 19.7 LV E' Septal Velocity 2.5 cm/s Mitral E to LV E' Septal Ratio 58.0 TR Peak Velocity 268.0 cm/s TR Peak Gradient 28.7 mmHg PV Peak Velocity 70.2 cm/s PV Peak Gradient 2.0 mmHg FINDINGS LEFT VENTRICLE Normal left ventricular size. Wall thickness is normal. The left ventricular systolic function is grossly normal on limited imaging. No regional wall motion abnormalities are present. This study was not technically sufficient to allow for evaluation of left ventricular diastolic func tion. RIGHT VENTRICLE Normal right ventricular size and systolic function. LEFT ATRIUM The left atrial size is normal. RIGHT ATRIUM The right atrial size is normal. ATRIAL SEPTUM Normal atrial septal thickness without atrial level shunting by limited color doppler interrogation. AORTA The aortic root and proximal ascending aorta are normal in size on limited imaging. MITRAL VALVE Mild thickening of the mitral valve leaflets. Mitral annular calcification is present. No mitral valve stenosis. Mild mitral valve regurgitation. AORTIC VALVE Severe thickening of the aortic valve leaflets. Moderate thickening of the aortic valve leaflets. Moderate aortic valve regurgitation. Moderate aortic valve stenosis. TRICUSPID VALVE Structurally normal tricuspid valve. There is mild tricuspid valve regurgitation. Normal estimated pulmonary pressures. PULMONARY VALVE The pulmonary valve is not well visualized. VESSELS The inferior vena cava is normal in size. PERICARDIUM No pericardial effusion. Dimitri Najera MD, FACC (Electronically Signed) Final Date:25 August 2016 16:44
[2016-08-25 18:06] LABS: AUTOMATED NEUTROPHIL # 4.6 TH/MM3 (1.8-7.7); BASOPHIL % 0.6 % (0.0-2.0); EOSINOPHIL # 0.1 TH/MM3 (0-0.4); HEMATOCRIT 31.2 % (35.0-46.0); HEMO FLAGS DIFF FINAL; LYMPH % 27.2 % (9.0-44.0); MEAN CELL VOLUME 81.1 FL (80.0-100.0); MEAN CORPUSCULAR HGB CONC 32.1 % (32.0-36.0); MONO % 8.9 % (0.0-8.0); NEUT % 62.3 % (16.0-70.0); PLATELET COUNT 384 TH/MM3 (150-450); RED BLOOD COUNT 3.84 MIL/MM3 (4.00-5.30); RED CELL DISTRIBUTION WIDTH 16.7 % (11.6-17.2); WHITE BLOOD COUNT 7.4 TH/MM3 (4.0-11.0)
[2016-08-25 18:27] LABS: BICARBONATE 24.7 MEQ/L (21.0-32.0); POTASSIUM 3.9 MEQ/L (3.5-5.1)
[2016-08-25] MEDS: ATORVASTATIN 40 MG TAB PO SCH (21:46)
--- NOTE | 2016-08-25 22:25 | MB ---
cc: JAYME PRESTON MD DATE OF CONSULTATION 08/25/2016 REASON FOR CONSULTATION Post cath, questionable right-sided field defect of both eyes, history of cerebrovascular accident, history of stroke. HISTORY OF PRESENT ILLNESS Ms. White is a pleasant 71-year-old female with past medical history of severe aortic stenosis, hypertension, hyperlipidemia, hypothyroidism and remote stroke with residual right-sided weakness, history of carotid endarterectomy and stenting and open heart surgery and bypass and multiple stent placement presented to the [facility] Emergency Room on 08/22/2016 because of dyspnea and chest discomfort. The patient was admitted to the hospital. She felt that she cannot see on her right side of vision and there is limited field of vision on the right side which is new symptom to her. She denies double vision, headache, worsening of the weakness on the right side, facial droop or speech difficulty. The patient states that today after catheterization she felt that it has become prominent. The patient is diagnosed with new onset atrial fibrillation. She has done a carotid endarterectomy previously. The head CT scan showed old left thalamic infarct and old left infarction involving the medial left occipital lobe. The patient is on aspirin and Plavix. She has undergone a right eye cataract surgery four weeks ago. Dr. Valentin with [facility] spoke with me this morning for neurologic evaluation, I asked him to order a head CT scan without contrast and will follow up. REVIEW OF SYSTEMS A 12-point review of systems was negative except for what is stated in the HPI. PAST MEDICAL HISTORY 1. Aortic stenosis. 2. Hypothyroidism. 3. Hypertension. 4. Hyperlipidemia. 5. Gastroesophageal reflux disease. 6. Anxiety. 7. Depression. 8. History of remote stroke with right-sided deficit. 9. History of carotid artery disease. PAST SURGICAL HISTORY 1. Appendectomy. 2. Cardiac stents. 3. Hysterectomy. 4. Carotid endarterectomy and carotid stents. MEDICATIONS 1. Aspirin. 2. Plavix. 3. Omeprazole. 4. Synthroid. 5. Metoprolol. 6. Atorvastatin. 7. Amlodipine. ALLERGIES CODEINE. FAMILY HISTORY Mother with Parkinson's and positive family history of heart disease, mother, father and brother. SOCIAL HISTORY One beer daily. Denies tobacco or illicit drug abuse. PHYSICAL EXAMINATION GENERAL: Awake, alert, good historian, overweight, not in apparent distress. HEENT: Atraumatic, normocephalic. Intact hearing. Blurred vision due to bilateral dilated pupils after an ophthalmologic assessment was done today. Right subconjunctival hemorrhage. NECK: Trachea in the midline. No signs of meningeal irritation. CARDIOVASCULAR: Irregularly irregular heartbeat. MUSCULOSKELETAL: No clubbing, cyanosis or edema. GASTROINTESTINAL: Soft, nontender abdomen. RESPIRATORY: Clear to auscultation. No wheezes. NEUROLOGIC: Awake, alert, oriented to time, person and place. No dysarthria. No dysphagia. Speech content is intact. Cranial nerve examination bilaterally dilated pupil / secondary to dilatation for full ophthalmologic assessment. No diplopia. Intact external ocular motility. right homonymous hemianopsia. No facial asymmetry. Intact facial sensation. Intact hearing. Normal palate elevation. Normal tongue. No fasciculation. Intact trapezius and sternocleidomastoid. Motor system examination right shoulder abduction, wrist extension, elbow extension 5-/5. Right hip flexion right dorsiflexion 5-/5. The rest of the right side and the entire left side is 5/5. No abnormal movement. Normal tone. Intact sensation bilateral and symmetrical throughout upper and lower extremity to light touch and temperature and pain. Cerebellar function intact bilateral and symmetrical [id number], [id number]. Reflexes 2+ bilateral and symmetrical. Plantars are bilaterally downgoing. Gait mild subtle spastic right mild hemiplegic gait. No ataxia. PSYCHOLOGIC: Good mood and behavior. No hallucination. LABORATORY DATA - White blood cells 7.4, hemoglobin 10, MCV 81, platelet count 384. Sodium 136, potassium 3.9, BUN 19, creatinine 1.14, random glucose 74, calcium 112. B-type natriuretic peptide 821. Liver function tests within normal. Total protein 7.3, albumin 3, lipase 84. - Echocardiogram normal left ventricular size, wall thickness is normal. No regional wall motion abnormalities. Moderate aortic valve regurgitation. Moderate aortic valve stenosis. Mitral annular calcification. No mitral valve stenosis. No pericardial effusion. IMAGING Diagnostic imaging studies: - Head CT scan without contrast with no acute intracranial hemorrhage. Old left thalamic infarct. Old left infarct involving the medial left occipital lobe. IMPRESSION 1. History of remote ischemic stroke with residual right-sided weakness. 2. Ischemic stroke involving the left thalamus and the left occipital region. 3. Carotid artery disease status post carotid endarterectomy on the right. 4. History of hypertension. 5. History of hypothyroidism. 6. Recent cataract surgery on the right eye. 7. Aortic stenosis. 8. Heart failure with new onset atrial fibrillation. 9. Given the remote stroke with involvement of the left occipital lobe and the left thalamus the likely involvement of the left geniculate body with resultant right homonymous hemianopsia that the patient states had never complained of, however, she has had recent onset 24 hours prior to the catheterization procedure of symptoms of right visual field deficit. PLAN 1. Neurological checks q.4h. 2. MRI brain without contrast. 3. Carotid ultrasound was done 03/04/2015 and it revealed extensive vascular calcification throughout both carotids, essentially absent flow in the left vertebral with high resistance and right vertebral distal stenosis or termination in the PICA branch, finding concerning of limited blood flow to posterior circulation. Neck CTA done 01/22/2016 revealed both vertebral arteries are patent. High-grade stenosis at origin of left subclavian artery. Previous endarterectomy on the right. The right carotid circulation is widely patent. Hemodynamically significant stenosis of the origin of the right ICA. Certain projections this is estimated to be in the range of 50-60%. Brain MRI on 01/22/2016 revealed acute infarction involving the medial aspect of the left temporal lobe and the lateral aspect of the left thalamus. Mild periventricular and subcortical white matter small vessel ischemic changes bilaterally. Typically this kind of anatomical insult to the brain would result in right-sided homonymous hemianopsia. However, the patient never complained of it until yesterday morning and that is almost 4 weeks after the cataract surgery and one day before the cardiac cath procedure. 4. Continue antiplatelet therapy at this time. 5. Carotid ultrasound. 6. DVT prophylaxis. SCDs. 7. Fall precautions. 8. GI prophylaxis. Thank you for the opportunity to participate in the care of your patient. MD ANNA Diego/FRANSISCO /9:07 PM /9:55 PM NELSON
--- NOTE | 2016-08-25 23:24 | MA ---
cc: CHIDI LEHMAN DO DATE August 25, 2016 PROCEDURE Left heart catheterization, coronary angiogram, right heart catheterization, aortic valve assessment, moderate sedation 45 minutes. PREPROCEDURE DIAGNOSIS New onset congestive heart failure, moderate to severe aortic stenosis by echocardiogram, previous NSTEMI. POSTPROCEDURE DIAGNOSIS Congestive heart failure most likely secondary to atrial fibrillation, no significant coronary artery disease, bypass grafts patent, moderate aortic stenosis (mean gradient 22, aortic valve area 1.09). MEDICATIONS Fentanyl 25 micrograms, Versed 0.5 milligrams. FLUOROSCOPY 11.5 minutes. CONTRAST USED 60 cc. SEDATION Moderate sedation 45 minutes. ESTIMATED BLOOD LOSS Less than 50 cc. PROCEDURAL SUMMARY Grisel White is a pleasant 71-year-old female who presented to [facility] due to congestive heart failure. She was also found to be in new onset atrial fibrillation at this time and it is unsure if this was due to possible coronary artery disease, her moderate to severe aortic stenosis by echocardiogram or her new onset atrial fibrillation. Because of this it was felt that she needed to be further worked up for a right and left heart catheterization as well as an aortic valve assessment. Risks, benefits and alternatives were explained to her and she consented as such. She was brought to the lab and prepped in the usual sterile fashion. Right femoral artery was accessed using a modified Seldinger technique and placement of a 6-Montserratian sheath. The right femoral vein was accessed using a modified Seldinger technique and placement of a 7-Montserratian sheath. Both sheaths were easily aspirated and flushed. Angiogram of the right femoral artery shows moderate calcification at the femoral head and tortuosity above. A Hawthorne-Edenilson catheter was placed in the right femoral vein and advanced to a wedge position. Pressures and oxygen saturations were done in the usual fashion with hemodynamics below. Hawthorne-Edenilson catheter was then removed. The JR-4 was advanced over a J-wire and was used for selective angiography of the right coronary artery as well as the bypass grafts. This was then exchanged for a JL-4 catheter which was used for selective angiography of the left coronary system. JL-4 was then exchanged for an AL-1 and the J-wire was easily advanced across the aortic valve. AL-1 was then advanced in the left ventricle and a long J-wire was placed. AL-1 was then exchanged for a Matthew dual lumen catheter which was used for simultaneous pressures of the left ventricle and aorta. ___ was removed over a J-wire. Both sheaths were pulled while in the room and pressure was held for hemostasis. The patient left the cath lab nurse cardiovascularly stable. FINDINGS Left main: Long vessel with 30% stenosis at the ostium with good reflux from the catheter into the aorta. It trifurcates into an LAD ramus and left circumflex. LAD: Proximal LAD has 40% disease with diffuse 20% disease distally. LAD gives off two small diagonals with no significant disease. Ramus: Overall is a small vessel with no significant disease. Left circumflex: Small vessel with 20% disease diffusely in the proximal portion. It gives off one major obtuse marginal with no significant disease. RCA: 100% occluded in the midportion. SVG to distal RCA: No significant disease, supplies two posterior lateral branches. SVG to PDA no significant disease and is widely patent. HEMODYNAMIC RESULTS Right atrium 8. Right ventricle 47/3, RVEDP 8. PA 35/16, mean 27. Wedge 20. Left ventricle 166/2, LVEDP 12. Aorta 137/50. Aortic valve mean gradient 22. Aortic valve area 1.09. Cardiac output 3.6. Cardiac index 2.0. IMPRESSION 1. New onset congestive heart failure most likely due to new onset atrial fibrillation. 2. New onset atrial fibrillation. 3. No significant coronary artery disease with patent bypass grafts as above. 4. Moderate aortic stenosis (aortic valve mean gradient 22, aortic valve area 1.09). RECOMMENDATIONS 1. Mrs. White appears to have had an episode of congestive heart failure and this may be due to her atrial fibrillation. 2. She has no significant coronary artery disease and her previous bypass grafts are patent. 3. As far as her aortic valve goes it appears that she has moderate aortic stenosis at this time. 4. We will continue medical management of her current situation. 5. We will consider further anticoagulation for her atrial fibrillation. Thank you for allowing me to see Grisel Rosenberg. If there are any questions please do not hesitate to call. Chidi Lehman DO VGP/EO /10:30 PM /11:07 PM
[2016-08-25] MEDS: MELATONIN 5 MG TAB PO PRN (23:59)
[2016-08-26] VITALS (25 sets, daily range): BP systolic 116–137; BP diastolic 72–85; PULSE 52–86; RESP 18–20; TEMP 97.5–98.6; O2SAT 96–100
[2016-08-26] MEDS: ACETAMINOPHEN 325 MG TAB PO PRN (00:01)
--- NOTE | 2016-08-26 00:40 | RADRPT ---
EXAM DATE/TIME: 08/25/2016 23:06 [facility] COMPARISON: No previous studies available for comparison. INDICATIONS : CVA. MEDICAL HISTORY : Hypertension. Hypercholesterolemia. SURGICAL HISTORY : Tonsillectomy. Hysterectomy. Appendectomy. Coronary stent. Surgery left ankle. ENCOUNTER: Initial ACUITY: 1 day PAIN SCORE: 0/10 LOCATION: Bilateral neck PEAK SYSTOLIC VELOCITIES (cm/sec): ICA/CCA RATIO: Right: 1.5 Left: 1.6 ICA: Right: 181 Left: 150 CCA: Right: 174 Left: 117 ECA: Right: 75 Left: 116 VERTEBRAL: Right: 47 antegrade Left: 35 antegrade Elevated flow velocities and ICA/CCA ratios have been found to correlate with increased degrees of vessel stenosis, calculated as percentage of diameter relative to a normal segment of distal ICA/CCA FINDINGS: RIGHT CAROTID: No significant stenosis is visualized. Moderate plaque. The waveforms are within normal limits. LEFT CAROTID: No significant stenosis is visualized. Moderate to severe plaque. The waveforms are within normal li mits. VERTEBRAL ARTERIES: Antegrade flow is seen in both vertebral arteries. MISCELLANEOUS: None. CONCLUSION: 1. 50-69% stenoses within both internal carotid arteries. Brando Auguste MD on August 26, 2016 at 0:37 Board Certified Radiologist. This report was verified electronically.
[2016-08-26] MEDS: LEVOTHYROXINE SODIUM 112 MCG TAB PO SCH (05:51)
[2016-08-26 06:11] LABS: AUTOMATED NEUTROPHIL # 3.7 TH/MM3 (1.8-7.7); BASOPHIL # 0.1 TH/MM3 (0-0.2); BASOPHIL % 0.9 % (0.0-2.0); EOSINOPHIL # 0.1 TH/MM3 (0-0.4); EOSINOPHIL % 2.4 % (0.0-4.0); HEMATOCRIT 30.3 % (35.0-46.0); HEMO FLAGS DIFF FINAL; LYMPH % 23.8 % (9.0-44.0); LYMPHOCYTE # 1.4 TH/MM3 (1.0-4.8); MEAN CELL VOLUME 80.7 FL (80.0-100.0); MEAN CORPUSCULAR HEMOGLOBIN 26.2 PG (27.0-34.0); MEAN CORPUSCULAR HGB CONC 32.4 % (32.0-36.0); NEUT % 63.9 % (16.0-70.0); PLATELET COUNT 346 TH/MM3 (150-450); RED BLOOD COUNT 3.76 MIL/MM3 (4.00-5.30); WHITE BLOOD COUNT 5.8 TH/MM3 (4.0-11.0)
[2016-08-26 06:34] LABS: BICARBONATE 25.1 MEQ/L (21.0-32.0); POTASSIUM 3.6 MEQ/L (3.5-5.1)
[2016-08-26] MEDS: DOCUSATE SODIUM 50 MG/SENNA 8.6 MG TAB PO SCH ×2 (09:00→21:10)
[2016-08-26] MEDS: ASPIRIN EC 81 MG TABEC PO SCH (10:10)
[2016-08-26] MEDS: FLUoxetine HCL 20 MG CAP PO SCH (10:10)
[2016-08-26] MEDS: CLOPIDOGREL 75 MG TAB PO SCH (10:10)
[2016-08-26] MEDS: METOPROLOL TARTRATE 25 MG TAB PO SCH ×2 (10:11→21:11)
[2016-08-26] MEDS: SODIUM CHLORIDE 0.9% FLUSH 10 ML FLUSH IV FLUSH SCH ×2 (10:11→21:11)
[2016-08-26] MEDS: amLODIPine BESYLATE 5 MG TAB PO SCH (10:11)
[2016-08-26] MEDS: PANTOPRAZOLE SOD 40 MG DELAYED RELEASE TAB PO SCH (10:11)
[2016-08-26] MEDS: CHOLECALCIFEROL (VIT D3) 5000 UNIT CAP PO SCH (10:11)
--- NOTE | 2016-08-26 12:43 | PD.CARD.PN ---
Subjective Subjective Remarks No events over night, feels well Objective Medications Current Medications Medications (Trade) Dose Ordered Sig/Isai Route Start Time Stop Time Status Last Admin (NS Flush) 2 ml UNSCH PRN IV FLUSH 08/22/16 17:30 (NS Flush) 2 ml BID IV FLUSH 08/22/16 21:00 08/26/16 10:11 (Tylenol) 650 mg Q4H PRN PO 08/22/16 17:30 08/26/16 00:01 (Zofran Inj) 4 mg Q6H PRN IVP 08/22/16 17:30 (Narcan Inj) 0.4 mg UNSCH PRN IV 08/22/16 17:30 (Beth-Colace) 1 tab BID PO 08/22/16 21:00 08/25/16 21:46 (Milk Of Magnesia Liq) 30 ml Q12H PRN PO 08/22/16 17:30 (Senokot) 17.2 mg Q12H PRN PO 08/22/16 17:30 (Dulcolax Supp) 10 mg DAILY PRN RECTAL 08/22/16 17:30 (Lactulose Liq) 30 ml DAILY PRN PO 08/22/16 17:30 (Lipitor) 40 mg HS PO 08/22/16 21:00 08/25/16 21:46 (Vitamin D3) 5,000 units DAILY PO 08/23/16 09:00 08/26/16 10:11 (PROzac) 20 mg DAILY PO 08/23/16 09:00 08/26/16 10:10 (Synthroid) 112 mcg DAILY@06 PO 08/23/16 06:00 08/26/16 05:51 (Ativan) 0.5 mg Q6H PRN PO 08/22/16 19:30 08/24/16 23:21 (Lopressor) 25 mg BID PO 08/22/16 21:00 08/26/16 10:11 (Protonix) 40 mg DAILY PO 08/23/16 09:00 08/26/16 10:11 (Ecotrin Ec) 81 mg DAILY PO 08/23/16 09:00 08/26/16 10:10 (Norvasc) 2.5 mg DAILY PO 08/23/16 09:00 08/26/16 10:11 (Plavix) 75 mg DAILY PO 08/24/16 09:00 08/26/16 10:10 (Melatonin) 5 mg HS PRN PO 08/23/16 22:00 08/25/16 23:59 (Atropine Inj) 0.5 mg UNSCH PRN IV 08/25/16 11:00 Vital Signs / I&O Vital Signs Date Time Temp Pulse Resp B/P Pulse Ox O2 Delivery O2 Flow Rate FiO2 08/26/16 10:33 96 08/26/16 08:00 97 Room Air 08/26/16 08:00 98.6 68 20 120/74 97 08/26/16 06:00 58 08/26/16 05:00 62 08/26/16 04:00 64 08/26/16 03:12 70 08/26/16 03:00 97.5 61 20 124/72 98 08/26/16 02:00 66 08/26/16 01:00 62 08/26/16 00:00 68 08/25/16 23:00 68 08/25/16 23:00 98.4 62 20 133/72 97 08/25/16 22:00 64 08/25/16 21:00 62 08/25/16 20:50 98 21 08/25/16 20:00 68 08/25/16 19:00 75 08/25/16 19:00 95 Room Air 08/25/16 19:00 98.5 66 20 126/60 98 08/25/16 18:00 78 08/25/16 17:52 18 08/25/16 17:00 66 08/25/16 16:00 66 08/25/16 15:00 63 08/25/16 15:00 98.5 68 20 152/86 98 08/25/16 14:31 98 08/25/16 14:00 62 08/25/16 13:00 66 I/O 08/25/16 08/25/16 08/25/16 08/26/16 08/26/16 08/26/16 07:00 15:00 23:00 07:00 15:00 23:00 Intake Total 480 ml 480 ml 240 ml Output Total 700 ml 600 ml 800 ml Balance -220 ml -120 ml -560 ml Intake Oral 480 ml 480 ml 240 ml Output Urine Total 700 ml 600 ml 800 ml Stool Total 0 ml # Bowel Movements 0 Physical Exam GENERAL: NAD, AAOx3 SKIN: Warm and dry. HEAD: Atraumatic. Normocephalic. EYES: Pupils equal and round. No scleral icterus. Right eye scleral hemorrhage ENT: No nasal bleeding or discharge. Mucous membranes pink and moist. NECK: Trachea midline. No JVD. CARDIOVASCULAR: Irregularly irregular. 3/6 crescendo-decrescendo murmur to the RSB RESPIRATORY: No accessory muscle use. Clear to auscultation. Breath sounds equal bilaterally. GASTROINTESTINAL: Abdomen soft, non-tender, nondistended. Hepatic and splenic margins not palpable. MUSCULOSKELETAL: Extremities without clubbing, cyanosis, or edema. No obvious deformities. Right groin no hematoma/bruit NEUROLOGICAL: Awake and alert. No obvious cranial nerve deficits. Motor grossly within normal limits. Five out of 5 muscle strength in the arms and legs. Normal speech. PSYCHIATRIC: Appropriate mood and affect; insight and judgment normal. Laboratory Laboratory Tests Test 08/25/16 08/26/16 17:52 05:47 White Blood Count 7.4 TH/MM3 5.8 TH/MM3 Red Blood Count 3.84 MIL/MM3 3.76 MIL/MM3 Hemoglobin 10.0 GM/DL 9.8 GM/DL Hematocrit 31.2 % 30.3 % Mean Corpuscular Volume 81.1 FL 80.7 FL Mean Corpuscular Hemoglobin 26.0 PG 26.2 PG Mean Corpuscular Hemoglobin 32.1 % 32.4 % Concent Red Cell Distribution Width 16.7 % 17.0 % Platelet Count 384 TH/MM3 346 TH/MM3 Mean Platelet Volume 7.7 FL 7.8 FL Neutrophils (%) (Auto) 62.3 % 63.9 % Lymphocytes (%) (Auto) 27.2 % 23.8 % Monocytes (%) (Auto) 8.9 % 9.0 % Eosinophils (%) (Auto) 1.0 % 2.4 % Basophils (%) (Auto) 0.6 % 0.9 % Neutrophils # (Auto) 4.6 TH/MM3 3.7 TH/MM3 Lymphocytes # (Auto) 2.0 TH/MM3 1.4 TH/MM3 Monocytes # (Auto) 0.7 TH/MM3 0.5 TH/MM3 Eosinophils # (Auto) 0.1 TH/MM3 0.1 TH/MM3 Basophils # (Auto) 0.0 TH/MM3 0.1 TH/MM3 CBC Comment DIFF FINAL DIFF FINAL Differential Comment Sodium Level 136 MEQ/L 140 MEQ/L Potassium Level 3.9 MEQ/L 3.6 MEQ/L Chloride Level 102 MEQ/L 106 MEQ/L Carbon Dioxide Level 24.7 MEQ/L 25.1 MEQ/L Anion Gap 9 MEQ/L 9 MEQ/L Blood Urea Nitrogen 19 MG/DL 21 MG/DL Creatinine 1.14 MG/DL 1.09 MG/DL Estimat Glomerular Filtration 47 ML/MIN 49 ML/MIN Rate Random Glucose 112 MG/DL 125 MG/DL Calcium Level 8.7 MG/DL 8.2 MG/DL Assessment and Plan Problem List: (1) CHF exacerbation (2) CAD (coronary artery disease) (3) Aortic stenosis (4) New onset a-fib Assessment and Plan 1) Shortness of breath/acute CHF exacerbation Most likely due to new onset atrial fibrillation Cardiac cath showing no significant CAD/bypass grafts open, Moderate ( mean grad 22, HECTOR 1.09), Mild PHTN Will hold off on consideration of AVR/TAVR for now 2) Post-cath, concern for peripheral visual field deficits, unsure if old Ophthalmology consulted, discussed case with Dr. Jimenez at bedside Neurology consulted, discussed case with Dr. Dale, CT head and he will see MRI today 3) Will consider anti-coagulation for new onset Afib, CHADSVASc = 7, will wait for MRI and then further discuss with Neuro/Ophtho 4) Hopefully discharge in 24-48 hours Problem Qualifiers (1) CHF exacerbation: Qualified Code: I50.9 - Acute on chronic congestive heart failure, unspecified congestive heart failure type Chidi Valentin DO Aug 26, 2016 12:43
[2016-08-26] MEDS: LORazepam 0.5 MG TAB PO PRN (15:47)
--- NOTE | 2016-08-26 17:25 | RADRPT ---
EXAM DATE/TIME: 08/26/2016 16:39 [facility] COMPARISON: MRI BRAIN W/O CONTRAST, January 22, 2016, 14:57. INDICATIONS : CVA. MEDICAL HISTORY : Hypertension. Stroke Coronary artery disease and atrial fibrillation. SURGICAL HISTORY : CABG Appendectomy. Hysterectomy. Ankle. ENCOUNTER: Initial ACUITY: 1 day PAIN SCORE: 0/10 LOCATION: Head. TECHNIQUE: Multiplanar, multisequence MRI of the brain was performed without contrast. FINDINGS: CEREBRUM: There is gyriform pattern of increased flair signal in the left medial occipital lobe w ith increased ADC signal and decreased diffusion signal. There is associated volume loss with exvacuo dilatation of the posterior horn of the left lateral ventricle. Moderate diffuse cerebral volume loss . The ventricles are otherwise normal for degree of atrophy. No evidence of midline shift, mass lesi on, hemorrhage or acute infarction. No extraaxial fluid collections are seen. The pituitary gland a nd suprasellar cistern are normal in configuration. WHITE MATTER: Redemonstration of mild periventricular and subcortical white matter ischemic small vessel changes. POSTERIOR FOSSA: The cerebellum and brainstem are intact. The 4th ventricle is midline. The cere bellopontine angle is unremarkable. The cerebellar tonsils are normal in position. DIFFUSION IMAGING: No focal areas of restricted diffusion are seen. No evidence of acute infarct ion. EXTRACRANIAL: The visualized portions of the orbits and paranasal sinuses are unremarkable. CONCLUSION: 1. Findings consistent with subacute to chronic left medial occipital lobe infarction. 2. Stable senescent changes with mild periventricular and subcortical white matter small vessel ische meagan changes bilaterally. Franklin Correa MD on August 26, 2016 at 17:05 Board Certified Radiologist. This report was verified electronically.
--- NOTE | 2016-08-26 19:07 | HHI.PR ---
Review/Management Diagnosis IMPRESSION 1. History of remote ischemic stroke with residual right-sided weakness. 2. Ischemic stroke involving the left thalamus and the left occipital region. 3. Carotid artery disease status post carotid endarterectomy on the right. 4. History of hypertension. 5. History of hypothyroidism. 6. Recent cataract surgery on the right eye. 7. Aortic stenosis. 8. Heart failure with new onset atrial fibrillation. 9. I explained to the patient that the visual symptoms are unrelated to the cardiac procedure, as the symptoms started prior to the procedure and there is no clinical or radiologic evidence of an acute ischemic stroke Plan 1. Continue antiplatelet at this time 2. Given a recent onset diagnosis of A fib, patient may be started on anticoagulation 3. In light of the b/l ICA stenoses [50-69%], I advised patient to avoid very low BP . 4. OT/ recommendations are appreciated 5. Patient is stable from neurologic standpoint, with no clinical or radiologic evidence of an acute intracranial abnormality 6. Please call for questions 7. Follow up with neurology as outpatient Diagnosis/Plan: Subjective Subjective Comments No acute events reported Patient denies new symptoms MRI brain revealed a subacute/chronic left occipital ischemic stroke CUS revealed 50-69% stenosis in b/l ICA Active Medications Current Medications Medications (Trade) Dose Ordered Sig/Isai Route Start Time Stop Time Status Last Admin (NS Flush) 2 ml UNSCH PRN IV FLUSH 08/22/16 17:30 (NS Flush) 2 ml BID IV FLUSH 08/22/16 21:00 08/26/16 10:11 (Tylenol) 650 mg Q4H PRN PO 08/22/16 17:30 08/26/16 00:01 (Zofran Inj) 4 mg Q6H PRN IVP 08/22/16 17:30 (Narcan Inj) 0.4 mg UNSCH PRN IV 08/22/16 17:30 (Beth-Colace) 1 tab BID PO 08/22/16 21:00 08/25/16 21:46 (Milk Of Magnesia Liq) 30 ml Q12H PRN PO 08/22/16 17:30 (Senokot) 17.2 mg Q12H PRN PO 08/22/16 17:30 (Dulcolax Supp) 10 mg DAILY PRN RECTAL 08/22/16 17:30 (Lactulose Liq) 30 ml DAILY PRN PO 08/22/16 17:30 (Lipitor) 40 mg HS PO 08/22/16 21:00 08/25/16 21:46 (Vitamin D3) 5,000 units DAILY PO 08/23/16 09:00 08/26/16 10:11 (PROzac) 20 mg DAILY PO 08/23/16 09:00 08/26/16 10:10 (Synthroid) 112 mcg DAILY@06 PO 08/23/16 06:00 08/26/16 05:51 (Ativan) 0.5 mg Q6H PRN PO 08/22/16 19:30 08/26/16 15:47 (Lopressor) 25 mg BID PO 08/22/16 21:00 08/26/16 10:11 (Protonix) 40 mg DAILY PO 08/23/16 09:00 08/26/16 10:11 (Ecotrin Ec) 81 mg DAILY PO 08/23/16 09:00 08/26/16 10:10 (Norvasc) 2.5 mg DAILY PO 08/23/16 09:00 08/26/16 10:11 (Plavix) 75 mg DAILY PO 08/24/16 09:00 08/26/16 10:10 (Melatonin) 5 mg HS PRN PO 08/23/16 22:00 08/25/16 23:59 (Atropine Inj) 0.5 mg UNSCH PRN IV 08/25/16 11:00 Allergies Allergies Coded Allergies Codeine (Verified Allergy, Unknown, ITCH, 08/22/16) Exam I&O / VS 08/25/16 08/25/16 08/26/16 15:00 23:00 07:00 Intake Total 480 ml 240 ml Output Total 600 ml 800 ml Balance -120 ml -560 ml Intake Oral 480 ml 240 ml Output Urine Total 600 ml 800 ml # Bowel Movements 0 Vital Signs Date Time Temp Pulse Resp B/P Pulse Ox O2 Delivery O2 Flow Rate FiO2 08/26/16 15:00 97.7 69 20 137/85 100 08/26/16 15:00 55 08/26/16 14:00 68 08/26/16 13:00 64 08/26/16 12:00 62 08/26/16 11:00 98.6 64 20 131/79 97 08/26/16 11:00 65 08/26/16 10:33 96 7/6/17 10:00 54 08/26/16 09:00 66 08/26/16 08:00 97 Room Air 08/26/16 08:00 98.6 68 20 120/74 97 08/26/16 08:00 86 08/26/16 07:00 52 08/26/16 06:00 58 08/26/16 05:00 62 08/26/16 04:00 64 08/26/16 03:12 70 08/26/16 03:00 97.5 61 20 124/72 98 08/26/16 02:00 66 08/26/16 01:00 62 08/26/16 00:00 68 08/25/16 23:00 68 08/25/16 23:00 98.4 62 20 133/72 97 08/25/16 22:00 64 08/25/16 21:00 62 08/25/16 20:50 98 21 08/25/16 20:00 68 Exam Comments GENERAL: Awake, alert, overweight, not in apparent distress. HEENT: Atraumatic, normocephalic. Intact hearing. Right subconjunctival hemorrhage. NECK: Trachea in the midline. No signs of meningeal irritation. CARDIOVASCULAR: Irregularly irregular rhythm. MUSCULOSKELETAL: No clubbing, cyanosis or edema. GASTROINTESTINAL: Soft, nontender abdomen. RESPIRATORY: Clear to auscultation. No wheezes. NEUROLOGIC: Awake, alert, oriented to time, person and place. No dysarthria. No dysphagia. Speech content is intact. Cranial nerve examination. No diplopia. Intact external ocular motility. right homonymous hemianopsia. No facial asymmetry. Intact facial sensation. Intact hearing. Normal palate elevation. Normal tongue. No fasciculation. Intact trapezius and sternocleidomastoid. Motor system examination right shoulder abduction, wrist extension, elbow extension 5-/5. Right hip flexion right dorsiflexion 5-/5. The rest of the right side and the entire left side is 5/5. No abnormal movement. Normal tone. Intact sensation bilateral and symmetrical throughout upper and lower extremity to light touch and temperature and pain. Cerebellar function intact bilateral and symmetrical [id number], [id number]. Reflexes 2+ bilateral and symmetrical. Plantars are bilaterally downgoing. Gait mild subtle spastic right mild hemiplegic gait. No ataxia. PSYCHOLOGIC: Good mood and behavior. No hallucination Objective Radiology Results Last 72 hours Impressions Brain MRI 08/26/16 0000 Signed Impressions: Service Date/Time: August 16:39 - CONCLUSION: 1. Findings consistent with subacute to chronic left medial occipital lobe infarction. 2. Stable senescent changes with mild periventricular and subcortical white matter small vessel ischemic changes bilaterally. Franklin Correa MD Head CT 08/25/16 0000 Signed Impressions: Service Date/Time: Thursday, August 25, 2016 14:51 - CONCLUSION: 1. No acute intracranial hemorrhage. 2. Old left thalamic infarct. 3. Old left infarct involving the medial left occipital lobe. Broderick Hinojosa MD Carotid Artery Ultrasound 08/25/16 0000 Signed Impressions: Service Date/Time: Thursday, August 25, 2016 23:06 - CONCLUSION: 1. 50-69%% stenoses within both internal carotid arteries. Brando Auguste MD Micro and Labs Laboratory Tests Test 08/26/16 05:47 White Blood Count 5.8 Red Blood Count 3.76 Hemoglobin 9.8 Hematocrit 30.3 Mean Corpuscular Volume 80.7 Mean Corpuscular Hemoglobin 26.2 Mean Corpuscular Hemoglobin 32.4 Concent Red Cell Distribution Width 17.0 Platelet Count 346 Mean Platelet Volume 7.8 Neutrophils (%) (Auto) 63.9 Lymphocytes (%) (Auto) 23.8 Monocytes (%) (Auto) 9.0 Eosinophils (%) (Auto) 2.4 Basophils (%) (Auto) 0.9 Neutrophils # (Auto) 3.7 Lymphocytes # (Auto) 1.4 Monocytes # (Auto) 0.5 Eosinophils # (Auto) 0.1 Basophils # (Auto) 0.1 CBC Comment DIFF FINAL Differential Comment Sodium Level 140 Potassium Level 3.6 Chloride Level 106 Carbon Dioxide Level 25.1 Anion Gap 9 Blood Urea Nitrogen 21 Creatinine 1.09 Estimat Glomerular Filtration 49 Rate Random Glucose 125 Calcium Level 8.2 Mari Dale MD Aug 26, 2016 19:07
[2016-08-26] MEDS: ATORVASTATIN 40 MG TAB PO SCH (21:10)
[2016-08-26] MEDS: MELATONIN 5 MG TAB PO PRN (21:34)
--- NOTE | 2016-08-26 22:30 | HHI.PR ---
Subjective Remarks patient seen today around 10 AM. Says she is feeling all right. Would like to go home. Awaiting MRI. Objective Vital Signs Date Time Temp Pulse Resp B/P Pulse Ox O2 Delivery O2 Flow Rate FiO2 08/26/16 20:00 98.5 68 18 116/75 97 08/26/16 20:00 97 Room Air 08/26/16 18:00 64 08/26/16 16:00 68 08/26/16 15:00 97.7 69 20 137/85 100 08/26/16 15:00 55 08/26/16 14:00 68 08/26/16 13:00 64 08/26/16 12:00 62 08/26/16 11:00 98.6 64 20 131/79 97 08/26/16 11:00 65 08/26/16 10:33 96 08/26/16 10:00 54 08/26/16 09:00 66 08/26/16 08:00 97 Room Air 08/26/16 08:00 98.6 68 20 120/74 97 08/26/16 08:00 86 08/26/16 07:00 52 08/26/16 06:00 58 08/26/16 05:00 62 08/26/16 04:00 64 08/26/16 03:12 70 08/26/16 03:00 97.5 61 20 124/72 98 08/26/16 02:00 66 08/26/16 01:00 62 08/26/16 00:00 68 08/25/16 23:00 68 08/25/16 23:00 98.4 62 20 133/72 97 I/O 08/25/16 08/25/16 08/25/16 08/26/16 08/26/16 08/26/16 07:00 15:00 23:00 07:00 15:00 23:00 Intake Total 480 ml 480 ml 240 ml 720 ml Output Total 700 ml 600 ml 800 ml 100 ml Balance -220 ml -120 ml -560 ml 620 ml Intake Oral 480 ml 480 ml 240 ml 720 ml Output Urine Total 700 ml 600 ml 800 ml 100 ml Stool Total 0 ml # Voids 4 # Bowel Movements 0 1 Result Diagram: 08/26/16 0547 08/26/16 0547 Objective Remarks GENERAL: patient sitting up in bed. Appears comfortable. SKIN: Warm and dry. HEAD: Normocephalic. EYES: No scleral icterus. No injection or drainage. NECK: Supple, trachea midline. No JVD. CARDIOVASCULAR: Regular rate and rhythm without murmurs, gallops, or rubs. RESPIRATORY: Breath sounds equal bilaterally. No accessory muscle use. GASTROINTESTINAL: Abdomen soft, non-tender, nondistended. MUSCULOSKELETAL: No cyanosis, or edema. BACK: Nontender without obvious deformity. No CVA tenderness. A/P Assessment and Plan 08/26. Patient doing well. Follow-up MRI results. Discussed with cardiology. Creatinine reviewed and stable. We'll need to determine home anticoagulation plan. Ms. White is a pleasant 71-year-old patient female with a history of hypertension, hypothyroidism, moderate to severe aortic stenosis who presents to the emergency department due to shortness of breath that started around 2 AM on 08/22/2016. Patient had a brief episode of chest pressure as well. - Acute Congestive heart failure with preserved left ventricular ejection fraction -- likely due to New onset a fib - Moderate to severe aortic stenosis - Atrial fibrillation, new onset- rate controlled `-resolved after 40 mg IV Lasix at ER - Appears to be a new finding. Previous EKG from 2016 does not show Afib - [id number] score at least 3 (Age, female, HTN), higher if CHF is considered in the calculation as well. - Currently rate is controlled. Patient would benefit from switching from Plavix to warfarin or preferably newer anti-coagulants such as Apixaban. - S/P cardiac cath- 08/25- - Echocardiogram from January 2016 indicates preserved ejection fraction but moderate to severe aortic stenosis. - d/w Dr Noel- cardiology ff. Thinks new onset CHF in from acute a fib and not from - On BB - will d/w OAC choice - ff BMP - Carotid artery stenosis - status post 3 cardiac stents last one in 2011 and status post carotid endarterectomy, carotid stent placement - Continue aspirin 81 mg, Plavix 75 mg, atorvastatin 40 mg. - Hypertension - continue amlodipine 2.5 mg daily, metoprolol 25 mg by mouth twice a day - Hypothyroidism - continue levothyroxine 112 g daily. ADD Right eye irritation/slight erythema- with transient visual field defect - per patient history of old infarct with some visual field defect - get Opthalmology consult for evaluation - get a head CT - Neurology consulted - ill d/w Cardiology OAC after full neurologic evaluation Cain Peterson MD Aug 26, 2016 22:30
[2016-08-27] VITALS (17 sets, daily range): BP systolic 128–140; BP diastolic 58–88; PULSE 55–102; RESP 18; TEMP 97.7–98.6; O2SAT 95–99
[2016-08-27] MEDS: LEVOTHYROXINE SODIUM 112 MCG TAB PO SCH (06:32)
[2016-08-27] MEDS: CHOLECALCIFEROL (VIT D3) 5000 UNIT CAP PO SCH (07:42)
[2016-08-27] MEDS: METOPROLOL TARTRATE 25 MG TAB PO SCH (07:43)
[2016-08-27] MEDS: DOCUSATE SODIUM 50 MG/SENNA 8.6 MG TAB PO SCH (07:43)
[2016-08-27] MEDS: PANTOPRAZOLE SOD 40 MG DELAYED RELEASE TAB PO SCH (07:43)
[2016-08-27] MEDS: CLOPIDOGREL 75 MG TAB PO SCH (07:43)
[2016-08-27] MEDS: amLODIPine BESYLATE 5 MG TAB PO SCH (07:44)
[2016-08-27] MEDS: FLUoxetine HCL 20 MG CAP PO SCH (07:44)
[2016-08-27] MEDS: ASPIRIN EC 81 MG TABEC PO SCH (07:44)
[2016-08-27] MEDS: SODIUM CHLORIDE 0.9% FLUSH 10 ML FLUSH IV FLUSH SCH (07:46)
[2016-08-27] MEDS ORDERED: AMLO5 PO (10:45)
[2016-08-27] MEDS: LORazepam 0.5 MG TAB PO PRN (14:42)
[2016-08-27] MEDS ORDERED: APIX5TAB PO (15:13)
--- NOTE | 2016-08-27 15:23 | HHI.PR ---
Subjective Remarks Patient seen today around noon. Says she is feeling well. Walking around room without difficulty. Denies any chest pain or shortness of breath. Would like to go home. Objective Vital Signs Date Time Temp Pulse Resp B/P Pulse Ox O2 Delivery O2 Flow Rate FiO2 08/27/16 14:08 68 08/27/16 13:50 74 08/27/16 12:26 61 08/27/16 11:00 77 08/27/16 11:00 97.8 66 18 128/58 99 08/27/16 10:26 71 08/27/16 10:04 95 08/27/16 09:19 66 08/27/16 08:00 61 08/27/16 07:00 97.7 69 18 140/88 98 08/27/16 07:00 55 08/27/16 07:00 97 Room Air 08/27/16 06:00 100 08/27/16 05:00 100 08/27/16 04:00 102 08/27/16 04:00 98.4 70 18 140/76 99 08/27/16 03:00 66 08/27/16 02:00 58 08/27/16 01:00 66 08/27/16 00:00 98.6 62 18 139/69 98 08/27/16 00:00 65 08/27/16 00:00 98 Room Air 08/26/16 23:00 66 08/26/16 22:00 70 08/26/16 21:00 64 08/26/16 20:00 61 08/26/16 20:00 98.5 68 18 116/75 97 08/26/16 20:00 97 Room Air 08/26/16 19:16 21 08/26/16 19:00 64 08/26/16 18:00 64 08/26/16 16:00 68 I/O 08/26/16 08/26/16 08/26/16 08/27/16 08/27/16 08/27/16 07:00 15:00 23:00 07:00 15:00 23:00 Intake Total 240 ml 720 ml 380 ml Output Total 800 ml 100 ml 710 ml Balance -560 ml 620 ml -330 ml Intake Oral 240 ml 720 ml 380 ml Output Urine Total 800 ml 100 ml 710 ml # Voids 4 # Bowel Movements 1 0 Result Diagram: 08/26/16 0547 08/26/16 0547 Imaging Last Impressions Brain MRI 08/26/16 0000 Signed Impressions: Service Date/Time: August 16:39 - CONCLUSION: 1. Findings consistent with subacute to chronic left medial occipital lobe infarction. 2. Stable senescent changes with mild periventricular and subcortical white matter small vessel ischemic changes bilaterally. Franklin Correa MD Head CT 08/25/16 0000 Signed Impressions: Service Date/Time: Thursday, August 25, 2016 14:51 - CONCLUSION: 1. No acute intracranial hemorrhage. 2. Old left thalamic infarct. 3. Old left infarct involving the medial left occipital lobe. Broderick Hinojosa MD Carotid Artery Ultrasound 08/25/16 0000 Signed Impressions: Service Date/Time: Tuesday, August 25, 2016 23:06 - CONCLUSION: 1. 50-69%% stenoses within both internal carotid arteries. Brando Auguste MD Chest X-Ray 08/22/16 1429 Signed Impressions: Service Date/Time: Monday, August 22, 2016 14:51 - CONCLUSION: 1. Mild pulmonary edema pattern with small effusions. Postoperative CABG. Robert Gilliland MD Objective Remarks GENERAL: patient came in room. Appears comfortable. Alert and oriented 3. SKIN: Warm and dry. HEAD: Normocephalic. EYES: No scleral icterus. No injection or drainage. NECK: Supple, trachea midline. No JVD. CARDIOVASCULAR: Regular rate and rhythm without murmurs, gallops, or rubs. RESPIRATORY: Breath sounds equal bilaterally. No accessory muscle use. GASTROINTESTINAL: Abdomen soft, non-tender, nondistended. MUSCULOSKELETAL: No cyanosis, or edema. BACK: Nontender without obvious deformity. No CVA tenderness. A/P Assessment and Plan 08/27. Patient doing well. Follow-up MRI with subacute infarct. Discussed again with cardiology. Discontinue Plavix. We'll start on Eliquis tomorrow.. Follow-up with neurology, ophthalmology, cardiology as outpatient. Ms. White is a pleasant 71-year-old patient female with a history of hypertension, hypothyroidism, moderate to severe aortic stenosis who presents to the emergency department due to shortness of breath that started around 2 AM on 08/22/2016. Patient had a brief episode of chest pressure as well. - Acute Congestive heart failure with preserved left ventricular ejection fraction -- likely due to New onset a fib - Moderate to severe aortic stenosis - Atrial fibrillation, new onset- rate controlled `-resolved after 40 mg IV Lasix at ER - Appears to be a new finding. Previous EKG from 2016 does not show Afib - [id number] score at least 3 (Age, female, HTN), higher if CHF is considered in the calculation as well. - Currently rate is controlled. Patient would benefit from switching from Plavix to warfarin or preferably newer anti-coagulants such as Apixaban. - S/P cardiac cath- 08/25- - Echocardiogram from January 2016 indicates preserved ejection fraction but moderate to severe aortic stenosis. - d/w Dr Noel- cardiology ff. Thinks new onset CHF in from acute a fib and not from - On BB - will d/w OAC choice Creatinine in stable. - Carotid artery stenosis - status post 3 cardiac stents last one in 2011 and status post carotid endarterectomy, carotid stent placement - Continue aspirin 81 mg, discontinue Plavix 75 mg, continue atorvastatin 40 mg. - Hypertension - continue amlodipine 2.5 mg daily which was started here, metoprolol 25 mg by mouth twice a day - Hypothyroidism - continue levothyroxine 112 g daily. ADD Right eye irritation/slight erythema- with transient visual field defect - per patient history of old infarct with some visual field defect - get Opthalmology consult for evaluation - get a head CT - Neurology consulted - ill d/w Cardiology OAC after full neurologic evaluation Discharge Planning Discharge home today. Cain Peterson MD Aug 27, 2016 15:23
--- NOTE | 2016-08-27 15:25 | HHI.DS ---
Discharge Summary Admission Date Aug 22, 2016 at 17:10 Discharge Date: Aug 27, 2016 Admitting Diagnosis CHF Exacerbation; Chest Pain (1) CHF exacerbation ICD Code: I50.9 (2) CAD (coronary artery disease) ICD Code: I25.10 (3) Hypothyroidism ICD Code: E03.9 (4) Hyperlipidemia ICD Code: E78.5 Procedures 08/25- cardiac cath- Brief History - From Admission Ms. White is a pleasant 71 year old female with a history of severe aortic stenosis who presented to the ED on 08/22/2016 due to dyspnea and chest discomfort. At around 2 AM on 08/22/2016 patient started experiencing shortness of breath which persisted until she arrived in the emergency department and received supplemental oxygen. She also experienced a brief episode of substernal chest pressure after she started having shortness of breath. Patient denies any nausea vomiting, cough, abdominal pain. Denies any fever or chills. Denies any changes in bowel or bladder habits. She received Lasix 40 mg IV in the emergency department. She follows up with Dr. Valentin with [facility]. CBC/BMP: 08/26/16 0547 08/26/16 0547 Significant Findings Laboratory Tests Test 08/25/16 08/26/16 17:52 05:47 Red Blood Count 3.84 MIL/MM3 3.76 MIL/MM3 (4.00-5.30) (4.00-5.30) Hemoglobin 10.0 GM/DL 9.8 GM/DL (11.6-15.3) (11.6-15.3) Hematocrit 31.2 % 30.3 % (35.0-46.0) (35.0-46.0) Mean Corpuscular Hemoglobin 26.0 PG 26.2 PG (27.0-34.0) (27.0-34.0) Monocytes (%) (Auto) 8.9 % (0.0-8.0) 9.0 % (0.0-8.0) Blood Urea Nitrogen 19 MG/DL (7-18) 21 MG/DL (7-18) Creatinine 1.14 MG/DL 1.09 MG/DL (0.50-1.00) (0.50-1.00) Estimat Glomerular Filtration 47 ML/MIN (>89) 49 ML/MIN (>89) Rate Random Glucose 112 MG/DL 125 MG/DL (74-106) (74-106) Calcium Level 8.2 MG/DL (8.5-10.1) Imaging Last Impressions Brain MRI 08/26/16 0000 Signed Impressions: Service Date/Time: August 16:39 - CONCLUSION: 1. Findings consistent with subacute to chronic left medial occipital lobe infarction. 2. Stable senescent changes with mild periventricular and subcortical white matter small vessel ischemic changes bilaterally. Farnklin Correa MD Head CT 08/25/16 0000 Signed Impressions: Service Date/Time: Thursday, August 25, 2016 14:51 - CONCLUSION: 1. No acute intracranial hemorrhage. 2. Old left thalamic infarct. 3. Old left infarct involving the medial left occipital lobe. Broderick Hinojosa MD Carotid Artery Ultrasound 08/25/16 0000 Signed Impressions: Service Date/Time: Thursday, August 25, 2016 23:06 - CONCLUSION: 1. 50-69%% stenoses within both internal carotid arteries. Brando Auguste MD Chest X-Ray 08/22/16 1429 Signed Impressions: Service Date/Time: Monday, August 22, 2016 14:51 - CONCLUSION: 1. Mild pulmonary edema pattern with small effusions. Postoperative CABG. Robert Gilliland MD PE at Discharge awake and alert NAD anicteric lungs no rales or wheezes irregular rhythm, 4/6 systolic murmur left sternal border abdomen soft, nontender extremities no edema right groin- no hematoma, good peripheral pulses neuro exam- unremarkable Hospital Course 08/27. Patient doing well. Follow-up MRI with subacute infarct. Discussed again with cardiology. Discontinue Plavix. We'll start on Eliquis tomorrow.. Follow-up with neurology, ophthalmology, cardiology as outpatient. Ms. White is a pleasant 71-year-old patient female with a history of hypertension, hypothyroidism, moderate to severe aortic stenosis who presents to the emergency department due to shortness of breath that started around 2 AM on 08/22/2016. Patient had a brief episode of chest pressure as well. - Acute Congestive heart failure with preserved left ventricular ejection fraction -- likely due to New onset a fib - Moderate to severe aortic stenosis - Atrial fibrillation, new onset- rate controlled `-resolved after 40 mg IV Lasix at ER - Appears to be a new finding. Previous EKG from 2016 does not show Afib - [id number] score at least 3 (Age, female, HTN), higher if CHF is considered in the calculation as well. - Currently rate is controlled. Patient would benefit from switching from Plavix to warfarin or preferably newer anti-coagulants such as Apixaban. - S/P cardiac cath- 08/25- - Echocardiogram from January 2016 indicates preserved ejection fraction but moderate to severe aortic stenosis. - d/w Dr Noel- cardiology ff. Thinks new onset CHF in from acute a fib and not from - On BB - will d/w OAC choice Creatinine in stable. - Carotid artery stenosis - status post 3 cardiac stents last one in 2011 and status post carotid endarterectomy, carotid stent placement - Continue aspirin 81 mg, discontinue Plavix 75 mg, continue atorvastatin 40 mg. - Hypertension - continue amlodipine 2.5 mg daily which was started here, metoprolol 25 mg by mouth twice a day - Hypothyroidism - continue levothyroxine 112 g daily. ADD Right eye irritation/slight erythema- with transient visual field defect - per patient history of old infarct with some visual field defect - get Opthalmology consult for evaluation - get a head CT - Neurology consulted - ill d/w Cardiology OAC after full neurologic evaluation Discharge Planning Discharge home today. Pt Condition on Discharge: Good Discharge Disposition: Discharge Home Discharge Time: > 30 minutes Discharge Instructions DIET: Follow Instructions for: Heart Healthy Diet, Diabetic Diet Activities you can perform: Regular-No Restrictions Follow up Referrals: Cardiology - 1 Week with Silvino Gutierrez MD Neurology - 1 Week with Mari Dale MD Ophthalmology - 1 Week with Eileen Jimenez MD PCP Follow-up - 1 Week New Medications: Apixaban (Eliquis) 5 Mg Tab 5 MG PO BID Blood Clot Prevention #60 Ref 0 TAB Amlodipine (Norvasc) 5 Mg Tab 2.5 MG PO DAILY Blood Pressure Management Days 30 TAB Continued Medications: Amlodipine (Amlodipine) 5 Mg Tab 5 MG PO DAILY Blood Pressure Management #30 Ref 0 TAB Atorvastatin (Atorvastatin) 40 Mg Tab 40 MG PO HS Cholesterol Management #30 Ref 0 TAB Cholecalciferol (D3 Maximum Strength) 5,000 Unit Cap 5000 UNITS PO DAILY Nutritional Supplement #30 Ref 0 CAP Fluoxetine (Fluoxetine) 20 Mg Tab 20 MG PO DAILY #30 Ref 0 TAB Levothyroxine (Synthroid) 112 Mcg Tab 112 MCG PO DAILY Thyroid #30 Ref 0 TAB Lorazepam (Lorazepam) 0.5 Mg Tab 0.5 MG PO Q6H PRN ANXIETY Ref 0 TAB Melatonin (Melatonin) 10 Mg Tab 10 MG PO HS PRN SLEEP Ref 0 TAB Metoprolol Tartrate (Metoprolol Tartrate) 25 Mg Tab 25 MG PO BID #60 Ref 0 TAB Omeprazole (Omeprazole) 40 Mg Cap 40 MG PO DAILY #30 Ref 0 CAP ([Aspirin Chew]) 81 MG CHEW 81 MG CHEW DAILY cva Days 30 Ref 0 TAB.CHEW Discontinued Medications: Clopidogrel (Plavix) 75 Mg Tab 75 MG PO DAILY Blood Clot Prevention #30 Ref 0 TAB Cain Peterson MD Aug 27, 2016 15:25
--- NOTE | 2016-08-27 15:28 | PD.CARD.PN ---
Subjective Subjective Remarks No chest pain, no shortness of breath Up and ambulating without problem Objective Medications Current Medications Medications (Trade) Dose Ordered Sig/Isai Route Start Time Stop Time Status Last Admin (NS Flush) 2 ml UNSCH PRN IV FLUSH 08/22/16 17:30 (NS Flush) 2 ml BID IV FLUSH 08/22/16 21:00 08/27/16 07:46 (Tylenol) 650 mg Q4H PRN PO 08/22/16 17:30 08/26/16 00:01 (Zofran Inj) 4 mg Q6H PRN IVP 08/22/16 17:30 (Narcan Inj) 0.4 mg UNSCH PRN IV 08/22/16 17:30 (Beth-Colace) 1 tab BID PO 08/22/16 21:00 08/26/16 21:10 (Milk Of Magnesia Liq) 30 ml Q12H PRN PO 08/22/16 17:30 (Senokot) 17.2 mg Q12H PRN PO 08/22/16 17:30 (Dulcolax Supp) 10 mg DAILY PRN RECTAL 08/22/16 17:30 (Lactulose Liq) 30 ml DAILY PRN PO 08/22/16 17:30 (Lipitor) 40 mg HS PO 08/22/16 21:00 08/26/16 21:10 (Vitamin D3) 5,000 units DAILY PO 08/23/16 09:00 08/27/16 07:42 (PROzac) 20 mg DAILY PO 08/23/16 09:00 08/27/16 07:44 (Synthroid) 112 mcg DAILY@06 PO 08/23/16 06:00 08/27/16 06:32 (Ativan) 0.5 mg Q6H PRN PO 08/22/16 19:30 08/27/16 14:42 (Lopressor) 25 mg BID PO 08/22/16 21:00 08/27/16 07:43 (Protonix) 40 mg DAILY PO 08/23/16 09:00 08/27/16 07:43 (Ecotrin Ec) 81 mg DAILY PO 08/23/16 09:00 08/27/16 07:44 (Norvasc) 2.5 mg DAILY PO 08/23/16 09:00 08/27/16 07:44 (Plavix) 75 mg DAILY PO 08/24/16 09:00 08/27/16 07:43 (Melatonin) 5 mg HS PRN PO 08/23/16 22:00 08/26/16 21:34 (Atropine Inj) 0.5 mg UNSCH PRN IV 08/25/16 11:00 Vital Signs / I&O Vital Signs Date Time Temp Pulse Resp B/P Pulse Ox O2 Delivery O2 Flow Rate FiO2 08/27/16 15:15 55 08/27/16 14:08 68 08/27/16 13:50 74 08/27/16 12:26 61 08/27/16 11:00 77 08/27/16 11:00 97.8 66 18 128/58 99 08/27/16 10:26 71 08/27/16 10:04 95 08/27/16 09:19 66 08/27/16 08:00 61 08/27/16 07:00 97.7 69 18 140/88 98 08/27/16 07:00 55 08/27/16 07:00 97 Room Air 08/27/16 06:00 100 08/27/16 05:00 100 08/27/16 04:00 102 08/27/16 04:00 98.4 70 18 140/76 99 08/27/16 03:00 66 08/27/16 02:00 58 08/27/16 01:00 66 08/27/16 00:00 98.6 62 18 139/69 98 08/27/16 00:00 65 08/27/16 00:00 98 Room Air 08/26/16 23:00 66 08/26/16 22:00 70 08/26/16 21:00 64 08/26/16 20:00 61 08/26/16 20:00 98.5 68 18 116/75 97 08/26/16 20:00 97 Room Air 08/26/16 19:16 21 08/26/16 19:00 64 08/26/16 18:00 64 08/26/16 16:00 68 I/O 08/26/16 08/26/16 08/26/16 08/27/16 08/27/16 08/27/16 07:00 15:00 23:00 07:00 15:00 23:00 Intake Total 240 ml 720 ml 380 ml Output Total 800 ml 100 ml 710 ml Balance -560 ml 620 ml -330 ml Intake Oral 240 ml 720 ml 380 ml Output Urine Total 800 ml 100 ml 710 ml # Voids 4 # Bowel Movements 1 0 Physical Exam GENERAL: NAD, AAOx3 SKIN: Warm and dry. HEAD: Atraumatic. Normocephalic. EYES: Pupils equal and round. No scleral icterus. Right eye scleral hemorrhage ENT: No nasal bleeding or discharge. Mucous membranes pink and moist. NECK: Trachea midline. No JVD. CARDIOVASCULAR: Irregularly irregular. 3/6 crescendo-decrescendo murmur to the RSB RESPIRATORY: No accessory muscle use. Clear to auscultation. Breath sounds equal bilaterally. GASTROINTESTINAL: Abdomen soft, non-tender, nondistended. Hepatic and splenic margins not palpable. MUSCULOSKELETAL: Extremities without clubbing, cyanosis, or edema. No obvious deformities. Right groin no hematoma/bruit NEUROLOGICAL: Awake and alert. No obvious cranial nerve deficits. Motor grossly within normal limits. Five out of 5 muscle strength in the arms and legs. Normal speech. PSYCHIATRIC: Appropriate mood and affect; insight and judgment normal. Assessment and Plan Problem List: (1) CHF exacerbation (2) CAD (coronary artery disease) (3) Aortic stenosis (4) New onset a-fib Assessment and Plan 1) Shortness of breath/acute CHF exacerbation Most likely due to new onset atrial fibrillation Cardiac cath showing no significant CAD/bypass grafts open, Moderate ( mean grad 22, HECTOR 1.09), Mild PHTN Will hold off on consideration of AVR/TAVR for now 2) Post-cath, concern for peripheral visual field deficits, unsure if old but better now... MRI showing no acute CVA Seen by Neuro and Ophthalmology 3) Plan anti-coagulation for new onset Afib, CHADSVASc = 7, OK'd by Ophtho and Neuro Will change to ASA/Eliquis(5mg BID) due to Afib/carotid disease/CAD 4) Cardiovascularly stable for discharge today, will follow up with me in 2-4 weeks Problem Qualifiers (1) CHF exacerbation: Qualified Code: I50.9 - Acute on chronic congestive heart failure, unspecified congestive heart failure type Chidi Valentin DO Aug 27, 2016 15:28
== END 2016-08-27 16:47 | disposition home or self-care (01) | DRG 287 ==
LOC: PHED 14:24 → PHEDA 17:10 → PH3A 19:05 → HCIS 08-23 11:27
PROVIDERS: ADMIT Internal Medicine; ATTEND Internal Medicine
PROC: B211YZZ Fluoroscopy of Multiple Coronary Arteries using Other Contrast (ICD-10-PCS; 2016-08-25)
PROC: B212YZZ Fluoroscopy of Single Coronary Artery Bypass Graft using Other Contrast (ICD-10-PCS; 2016-08-25)
PROC: B214YZZ Fluoroscopy of Right Heart using Other Contrast (ICD-10-PCS; 2016-08-25)
PROC: 4A023N8 Measurement of Cardiac Sampling and Pressure, Bilateral, Percutaneous Approach (ICD-10-PCS; principal; 2016-08-25 09:45)
DX: I11.0 Hypertensive heart disease with heart failure (principal); I25.82 Chronic total occlusion of coronary artery; I69.351 Hemiplegia and hemiparesis following cerebral infarction affecting right dominant side; I25.10 Atherosclerotic heart disease of native coronary artery without angina pectoris; I50.9 Heart failure, unspecified; I48.91 Unspecified atrial fibrillation; E11.9 Type 2 diabetes mellitus without complications; Z95.1 Presence of aortocoronary bypass graft; K21.9 Gastro-esophageal reflux disease without esophagitis; F32.9 Major depressive disorder, single episode, unspecified; I35.0 Nonrheumatic aortic (valve) stenosis; E03.9 Hypothyroidism, unspecified; E78.5 Hyperlipidemia, unspecified; F41.9 Anxiety disorder, unspecified; I69.298 Other sequelae of other nontraumatic intracranial hemorrhage; H11.31 Conjunctival hemorrhage, right eye; H53.461 Homonymous bilateral field defects, right side; Z79.84 Long term (current) use of oral hypoglycemic drugs; Z79.82 Long term (current) use of aspirin; Z79.02 Long term (current) use of antithrombotics/antiplatelets; Z95.5 Presence of coronary angioplasty implant and graft
CPT/HCPCS: 70450; 70551; 71010; 80048; 80076; 82550; 82810; 83690; 83880; 84484; 85025; 93005; 93306; 93457; 93880; 96374; C1769; C1893; J1644; J1940; J2250; J3010; Q9967

== ENCOUNTER 2016-10-15 08:10 | Inpatient (IN) | payer OTHER, MEDICARE ==
[2016-10-15] VITALS (10 sets, daily range): BP systolic 91–170; BP diastolic 61–95; PULSE 47–114; RESP 15–19; TEMP 96.7–98.5; O2SAT 92–100
[~2016-10-15] VITALS: Ht 162.6 cm; Wt 73.2 kg
[~2016-10-15 08:10] MED LIST changes: +AMLO5 PO; +AMLO5TAB2 PO; +APIX5TAB PO; +ATOR40TA16 PO; +CHOL1CAP14 PO; -LIPI80TA PO; +LORA-373 PO; +MELA1TAB18 PO; -OMEP20CA2 PO; +OMEP40CA2 PO; -PLAV75TA29 PO
[2016-10-15] MEDS ORDERED: SODIUM CHLORIDE 0.9% FLUSH 10 ML FLUSH IVF PRN (08:45)
[2016-10-15 08:52] LABS: BASOPHIL # 0.2 TH/MM3 (0-0.2); BASOPHIL % 3.9 % (0.0-2.0); EOSINOPHIL # 0.1 TH/MM3 (0-0.4); EOSINOPHIL % 2.2 % (0.0-4.0); HEMATOCRIT 24.9 % (35.0-46.0); LYMPH % 20.6 % (9.0-44.0); LYMPHOCYTE # 1.3 TH/MM3 (1.0-4.8); MEAN CELL VOLUME 78.3 FL (80.0-100.0); MEAN CORPUSCULAR HEMOGLOBIN 24.1 PG (27.0-34.0); MEAN CORPUSCULAR HGB CONC 30.8 % (32.0-36.0); MONO % 8.2 % (0.0-8.0); NEUT % 65.1 % (16.0-70.0); PLATELET COUNT 298 TH/MM3 (150-450); RED BLOOD COUNT 3.18 MIL/MM3 (4.00-5.30); RED CELL DISTRIBUTION WIDTH 17.1 % (11.6-17.2); WHITE BLOOD COUNT 6.1 TH/MM3 (4.0-11.0)
[2016-10-15 08:53] LABS: HEMO FLAGS AUTO DIFF
[2016-10-15] MEDS ORDERED: DICY20TA10 PO (09:00)
[2016-10-15 09:04] LABS: CHLORIDE 106 MEQ/L (98-107); POTASSIUM 4.4 MEQ/L (3.5-5.1); SODIUM (NA) 140 MEQ/L (136-145)
[2016-10-15 09:05] LABS: APTT (PATIENT) 26.5 SEC (24.3-30.1); INTERNATIONAL NORMALIZED RATIO 1.1 RATIO; PROTHROMBIN TIME - PATIENT 11.9 SEC (9.8-11.6)
[2016-10-15 09:09] LABS: ANION GAP 12 MEQ/L (5-15); BLOOD UREA NITROGEN 21 MG/DL (7-18); MAGNESIUM 2.3 MG/DL (1.5-2.5)
[2016-10-15 09:12] LABS: GLOMERULAR FILTRATION RATE 49 ML/MIN (>89)
--- NOTE | 2016-10-15 09:12 | RADRPT ---
EXAM DATE/TIME: 10/15/2016 08:43 [facility] COMPARISON: CHEST SINGLE AP, August 22, 2016, 14:51. INDICATIONS : Chest pain and shortness of breath. MEDICAL HISTORY : Diabetes mellitus type II. SURGICAL HISTORY : CABG. Right carotid stent. ENCOUNTER: Initial ACUITY: 1 day PAIN SCORE: 7/10 LOCATION: Bilateral chest FINDINGS: Portable AP view of the chest demonstrates a normal-sized cardiac silhouette with calcification of th e aorta in this patient post median sternotomy. There is a vascular stent projecting superior to the aortic arch. There are abnormal perihilar and lower lung zone interstitial and air space opacities, s table from the prior study. There also likely small pleural-based opacities bilaterally. No pneumotho rax is visualized. CONCLUSION: Stable chest x-ray with findings characteristic of pulmonary edema and likely small bilateral pleural effusions. Hussain Gilbert MD on October 15, 2016 at 9:08 Board Certified Radiologist. This report was verified electronically.
[2016-10-15 09:23] LABS: ACANTHOCYTES OCC (NORMAL); KERATOCYTES OCC (NORMAL); OVALOCYTES 1+ (NORMAL)
[2016-10-15 09:24] LABS: SCAN/DIFF AUTO DIFF CONFIRMED
[2016-10-15] MEDS ORDERED: SODIUM CHLOR 0.9% 250 ML INJ 250 ML IV ONE (09:45)
--- NOTE | 2016-10-15 09:58 | PD ---
HPI Chief Complaint: Chest Pain Time Seen by Provider: 08:30 Travel History International Travel<30 days: No Contact w/Intl Traveler<30days: No Traveled to known affect area: No History of Present Illness HPI 71 yo F c/o cough, chest pain relieved after nitro, dyspnea on exertion for a about 1 day. + productive sputum, atypical for patient. pt has COPD and reports hx of CHF; known hx . pt denies fever. pt reports intermittent prescribing of lasix previously and that she is not taking it now however might benefit from so doing. PFSH Past Medical History Depression: Yes Cancer: No Cardiovascular Problems: Yes Congestive Heart Failure: Yes Coronary Artery Disease: Yes Diabetes: Yes Patient Takes Glucophage: No Diminished Hearing: No Endocrine: Yes GERD: Yes Glaucoma: No Hepatitis: No Hiatal Hernia: No Hypertension: Yes Psychiatric: Yes Respiratory: No Immunizations Current: No Thyroid Disease: Yes Past Surgical History Abdominal Surgery: Yes (APPEND) Appendectomy: Yes Cardiac Surgery: Yes (CARDIAC STENT X 3) Coronary Artery Bypass Graft: Yes (12/2015) Coronary Stent: Yes (X 4) Ear Surgery: No Endocrine Surgery: No Eye Surgery: No Genitourinary Surgery: No Gynecologic Surgery: Yes (HYSTERECTOMY) Hysterectomy: Yes Neurologic Surgery: No Oral Surgery: No Pacemaker: No Thoracic Surgery: No Tonsillectomy: Yes Other Surgery: Yes Social History Alcohol Use: Yes (1 BEERS DAILY) Tobacco Use: No Substance Use: No Allergies-Medications (Allergen,Severity, Reaction): Coded Allergies: codeine (Unverified Allergy, Unknown, ITCH, 10/15/16) Reported Meds & Prescriptions Reported Meds & Active Scripts Active [Aspirin Chew] 81 MG Chew 81 Mg CHEW DAILY 30 Days Reported Dicyclomine (Dicyclomine HCl) 20 Mg Tab 20 Mg PO DAILY Lorazepam 0.5 Mg Tab 0.5 Mg PO Q6H PRN Synthroid (Levothyroxine Sodium) 112 Mcg Tab 112 Mcg PO DAILY Omeprazole 40 Mg Cap 20 Mg PO BID Metoprolol Tartrate 25 Mg Tab 25 Mg PO BID Fluoxetine (Fluoxetine HCl) 20 Mg Tab 20 Mg PO DAILY D3 Maximum Strength (Cholecalciferol) 5,000 Unit Cap 5,000 Units PO DAILY Atorvastatin (Atorvastatin Calcium) 40 Mg Tab 40 Mg PO HS Review of Systems Except as stated in HPI: all other systems reviewed are Neg Physical Exam Narrative GENERAL: 71 yo F, WNWD, NAD SKIN: Warm and dry. HEAD: Atraumatic. Normocephalic. EYES: Pupils equal and round. No scleral icterus. No injection or drainage. ENT: No nasal bleeding or discharge. Mucous membranes pink and moist. NECK: Trachea midline. No JVD. CARDIOVASCULAR: Regular rate and rhythm. RESPIRATORY: Normal respiratory rate. No wheezing or rales. GASTROINTESTINAL: Abdomen soft, non-tender, nondistended. Hepatic and splenic margins not palpable. MUSCULOSKELETAL: Extremities without clubbing, cyanosis. No edema. No obvious deformities. NEUROLOGICAL: Awake and alert. No obvious cranial nerve deficits. Motor grossly within normal limits. Five out of 5 muscle strength in the arms and legs. Normal speech. PSYCHIATRIC: Appropriate mood and affect; insight and judgment normal. Data Data Last Documented VS Vital Signs Date Time Temp Pulse Resp B/P (MAP) Pulse Ox O2 Delivery O2 Flow Rate FiO2 10/15/16 10:00 100 19 97/72 (80) 99 Nasal Cannula 2.00 10/15/16 08:35 98.5 Vital signs reviewed Orders Orders Electrocardiogram (10/15/16 08:31) Basic Metabolic Panel (Bmp) (10/15/16 08:31) Complete Blood Count With Diff (10/15/16 08:31) Magnesium (Mg) (10/15/16 08:31) Prothrombin Time / Inr (Pt) (10/15/16 08:31) Act Partial Throm Time (Ptt) (10/15/16 08:31) Troponin I (10/15/16 08:31) Chest, Single Ap (10/15/16 08:31) Ecg Monitoring (10/15/16 08:31) Iv Access Insert/Monitor (10/15/16 08:31) Oximetry (10/15/16 08:31) Oxygen Administration (10/15/16 08:31) Sodium Chloride 0.9% Flush (Ns Flush) (10/15/16 08:45) Type And Screen (10/15/16 09:33) Red Blood Cells (Rbc) (10/15/16 09:33) Blood Product Administration .UPON TRANSFUSION (10/15/16 09:33) Sodium Chlor 0.9% 250 Ml Inj (Ns 250 Ml (10/15/16 09:45) B-Type Natriuretic Peptide (10/15/16 09:33) Admit Order (Ed Use Only) (10/15/16 10:05) Labs Laboratory Tests Test 10/15/16 08:44 White Blood Count 6.1 TH/MM3 Red Blood Count 3.18 MIL/MM3 Hemoglobin 7.7 GM/DL Hematocrit 24.9 % Mean Corpuscular Volume 78.3 FL Mean Corpuscular Hemoglobin 24.1 PG Mean Corpuscular Hemoglobin Concent 30.8 % Red Cell Distribution Width 17.1 % Platelet Count 298 TH/MM3 Mean Platelet Volume 7.8 FL Neutrophils (%) (Auto) 65.1 % Lymphocytes (%) (Auto) 20.6 % Monocytes (%) (Auto) 8.2 % Eosinophils (%) (Auto) 2.2 % Basophils (%) (Auto) 3.9 % Neutrophils # (Auto) 4.0 TH/MM3 Lymphocytes # (Auto) 1.3 TH/MM3 Monocytes # (Auto) 0.5 TH/MM3 Eosinophils # (Auto) 0.1 TH/MM3 Basophils # (Auto) 0.2 TH/MM3 CBC Comment AUTO DIFF Differential Comment AUTO DIFF CONFIRMED Ovalocytes 1+ Acanthocytes OCC Keratocytes OCC Prothrombin Time 11.9 SEC Prothromb Time International Ratio 1.1 RATIO Activated Partial Thromboplast Time 26.5 SEC Blood Urea Nitrogen 21 MG/DL Creatinine 1.10 MG/DL Random Glucose 153 MG/DL Calcium Level 8.0 MG/DL Magnesium Level 2.3 MG/DL Sodium Level 140 MEQ/L Potassium Level 4.4 MEQ/L Chloride Level 106 MEQ/L Carbon Dioxide Level 22.0 MEQ/L Anion Gap 12 MEQ/L Estimat Glomerular Filtration Rate 49 ML/MIN Troponin I LESS THAN 0.02 NG/ML B-Type Natriuretic Peptide 324 PG/ML [facility] Medical Decision Making Medical Screen Exam Complete: Yes Emergency Medical Condition: Yes Medical Record Reviewed: Yes Differential Diagnosis NSTEMI, unstable angina, coronary vasospasm, PE, PTX, aortic dissection, pericarditis, myocarditis, endocarditis, PNA, esophageal disease, aneurysm, musculoskeletal etiologies, anxiety, cocaine/sympathomimetic abuse Narrative Course CBC & BMP Diagram 10/15/16 08:44 Calcium Level 8.0 L, Magnesium Level 2.3 BNP 324 EKG: Irregular, rate approx 100, normal axis/intervals Last 24 hours Impressions Chest X-Ray 10/15/16 0831 Signed Impressions: Service Date/Time: Saturday, October 15, 2016 08:43 - CONCLUSION: Stable chest x-ray with findings characteristic of pulmonary edema and likely small bilateral pleural effusions. Hussain Gilbert MD 1U PRBCs started. Admission for symptomatic anemia, repeat CBC, and treatment of CHF. d/w patient - amenable d/w Dr Peterson for [facility] Critical Care Narrative Aggregate critical care time was 35 minutes. Time to perform other separately billable procedures was not included in the critical care time. My time did not include minutes spent treating any other patients simultaneously or on activities that did not directly contribute to the patient's treatment. The services I provided to this patient were to treat and/or prevent clinically significant deterioration that could result in: Cardiopulmonary arrest, hypotensive shock I provided critical care services requiring my management, as noted below: Chart data review, documentation time, medication orders and management, vital sign assessments/reviewing monitor data, ordering and reviewing lab tests, ordering and interpreting/reviewing x-rays and diagnostic studies, care of the patient and discussion of the patient with the admitting physicians. Diagnosis Primary Impression: Aortic stenosis Qualified Codes: I35.0 - Nonrheumatic aortic (valve) stenosis Additional Impressions: Anemia Qualified Codes: D64.9 - Anemia, unspecified Dyspnea Qualified Codes: R06.00 - Dyspnea, unspecified Cough Pulmonary edema Qualified Codes: J81.0 - Acute pulmonary edema Admitting Information Admitting Physician Requests: it Yon Valentin MD Oct 15, 2016 09:58
[2016-10-15] MEDS ORDERED: MAGNESIUM HYDROXIDE SUSP 30 ML CUP PO PRN (10:00)
[2016-10-15] MEDS ORDERED: NALOXONE HCL 0.4 MG/ML AMP IV PRN (10:00)
[2016-10-15] MEDS ORDERED: LACTULOSE SYRUP 20 GM/30 ML CUP PO PRN (10:00)
[2016-10-15] MEDS ORDERED: SENNOSIDES 8.6 MG TAB PO PRN (10:00)
[2016-10-15] MEDS ORDERED: SODIUM CHLORIDE 0.9% FLUSH 10 ML FLUSH IV FLUSH PRN (10:00)
[2016-10-15] MEDS ORDERED: ONDANSETRON HCL 4 MG/2 ML VIAL IVP PRN (10:00)
[2016-10-15] MEDS ORDERED: BISACODYL 10 MG SUPP RECTAL PRN (10:00)
[2016-10-15] MEDS ORDERED: DILTIAZEM HCL 25 MG/5 ML VIAL IV PUSH ONE (10:15)
[2016-10-15] MEDS ORDERED: DILTIAZEM INJ 125 MG in SODIUM CHLORIDE 0.9% INJ 100 ML IV PRN (10:15)
[2016-10-15] MEDS ORDERED: FUROSEMIDE 20 MG/2 ML VIAL IV PUSH ONE (10:30)
[2016-10-15] MEDS ORDERED: DILTIAZEM HCL 25 MG/5 ML VIAL IV PUSH PRN (10:30)
[2016-10-15] MEDS: PANTOPRAZOLE SODIUM 40 MG VIAL IV PUSH SCH ×2 (11:27→21:52)
[2016-10-15 16:29] LABS: TRANSFERRIN IRON PROFILE 316 MG/DL (200-360)
[2016-10-15 16:31] LABS: FERRITIN 16 NG/ML (8-252)
[2016-10-15] MEDS ORDERED: DIATRIZOATE MEGLUM/DIATRIZOATE SOD 9 ML CUP PO ONE (18:00)
[2016-10-15 20:19] LABS: INDIRECT BILIRUBIN 0.4 MG/DL (0.0-0.8); TOTAL BILIRUBIN ADULT 0.6 MG/DL (0.2-1.0)
--- NOTE | 2016-10-15 20:21 | MB ---
cc: COOKIE JOHNSTON MD DATE OF CONSULTATION 10/15/16 DATE OF [address] Peterson REASON FOR CONSULTATION Symptomatic anemia. HISTORY OF PRESENT ILLNESS Ms. White is a very pleasant 71-year-old lady with multiple medical problems who came to the emergency room with complaints of chest pain relieved after nitro, dyspnea on exertion for approximately one day, along with productive cough. The patient was noted to have a significant drop in her hemoglobin. She denies any melena, hematemesis, hematochezia, dysphagia or odynophagia, epistaxis or bleeding from any other sites. 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 She has a history of chronic diarrhea. Apparently, she was evaluated in the past by Dr. Marquis with upper endoscopy, colonoscopy and other testing. She is unable to tell me exactly what. No etiology for her symptoms was found. She would like to see us in consultation for GI and would like to the hear a second opinion for her chronic diarrhea. She states she received one unit of PRBC, feeling better post transfusion. PAST MEDICAL HISTORY 1. Aortic stenosis, 2. Hypothyroidism, 3. Hypertension, 4. Hyperlipidemia, 5. Reflux, 6. Anxiety depression 7. History of a stroke 8. History of carotid artery disease PAST SURGICAL HISTORY 1. Appendectomy, 2. Cardiac stents 3. Hysterectomy 4. Carotid endarterectomy stents MEDICATIONS At home, 1. Aspirin 2. dil 3. Lipitor 4. Diltiazem. 5. Prozac 6. Lactulose. 7. Metoprolol 8. Dicyclomine. 9. Synthroid. 10. Lorazepam 11. Metoprolol. 12. Omeprazole. 13. Atorvastatin. In the hospital was started on. 1. Zofran. 2. Protonix. ALLERGIES CODEINE FAMILY HISTORY She denies any family history of colon cancer or any other GI pathology. REVIEW OF SYSTEMS She denies any fever, chills, weight loss or weight gain. ENT: No alteration in baseline hearing or visual acuity PULMONARY: She does have shortness of breath CARDIOVASCULAR With chest pain. GASTROINTESTINAL: As above. GENITOURINARY: Denies dysuria, hematuria. HEMATOLOGIC: Denies any history of anemia or bleeding disorder. SKIN: No alteration in baseline skin lesion. NEUROLOGIC: No history of TIA or CVA kind of symptoms. PHYSICAL EXAMINATION GENERAL: She is sitting comfortably in bed at this time in no acute distress, pale VITAL SIGNS: Temperature 97.8, pulse 71, respiration 18, blood pressure 100/69. HEENT: Pupils equal, round, reactive to light and accommodation NECK: No JVD, no lymphadenopathy. CHEST: Clear to the auscultation and palpation. CARDIOVASCULAR: S1, S2, systolic murmur. ABDOMEN: Soft, nontender. Bowel sounds are present. HISTOLOGY TECH: Awake, alert, oriented x3. No focal signs identified. No pedal edema. LABORATORY DATA Hemoglobin is 7.7. Previously hemoglobin was 9.8 and 10.1, MCV 78.3, platelets 298. PT/INR normal. CMP is suggestive of a BUN 21, creatinine 1.10, iron 16%. No liver enzymes done this admission, but she had some in August which were normal. IMAGING STUDIES She had CTA of the aorta last year which was suggestive of stent in the left subclavian origin, possible mass in the anterior aspect of the bladder. Cystoscopy is warranted for further assessment. Focal area in the infrarenal aorta which is slightly aneurysmal and approximately 2.9 cm. Area of enhancement within the left lobe of the liver nonspecific in appearance. IMPRESSION Ms. White is a 71-year-old lady with multiple medical problems admitted with symptomatic anemia. Etiology of this unclear. No indication of active bleed. Chronic diarrhea etiology unclear. According to the patient, she had extensive gastrointestinal workup. RECOMMENDATIONS Occult blood tests, celiac panel. Monitor H&H closely. Transfuse to keep hemoglobin more than nine. CT abdomen and pelvis. Unclear if the patient has seen a urologist or not. May consider MRI of the liver if the CT is unrevealing once gfr improves. Liver enzymes and tumor markers. egd/colonoscopy before discharged, once cleared by cardiology if active bleeding we will consider endoscopy on emergency we will try to obtain old records Thank you again. We will continue to follow the patient along with you. Cookie Johnston MD BSB/SA /5:18 PM /7:58 PM [facility]
[2016-10-15] MEDS: ATORVASTATIN 40 MG TAB PO SCH (20:25)
[2016-10-15] MEDS: METOPROLOL TARTRATE 25 MG TAB PO SCH (20:26)
[2016-10-15] MEDS: DOCUSATE SODIUM 50 MG/SENNA 8.6 MG TAB PO SCH (20:26)
[2016-10-15] MEDS: SODIUM CHLORIDE 0.9% FLUSH 10 ML FLUSH IV FLUSH SCH (20:27)
[2016-10-15] MEDS ORDERED: PANTOPRAZOLE SOD 20 MG DELAYED RELEASE TAB PO SCH (21:00)
--- NOTE | 2016-10-15 21:04 | HHI.HP ---
HPI [facility] Primary [facility] Physician Non-Staff Admission Diagnosis Anemia, Dyspnea, CP, Aortic Stenosis, Pulm Edema Diagnoses: Travel History International Travel<30 Days: No Contact w/Intl Traveler <30 Da: No Traveled to Known Affected Are: No History of Present Illness 77-year-old female with history of COPD, CAD status post stenting, CHF, atrial fibrillation, severe aortic stenosis, with history of stroke in August, and placed on Ellik was at that time, who presents to the ER having woken up this morning with shortness of breath. She took some nitroglycerin, which helped with her shortness of breath, and then proceeded to ER. She denies having any chest pain. She does report a progressive worsening of fatigue over the past month. She denies any bleeding. Denies any black tar in stools. Review of Systems Except as stated in HPI: all other systems reviewed are Neg Past Family Social History Past Medical History Aortic stenosis Hypothyroidism Hypertension Hyperlipidemia GERD Anxiety Depression Atrial fibrillation History of stroke Past Surgical History Appendectomy Cardiac stent 3 Hysterectomy Reported Medications Reported Meds & Active Scripts Active [Aspirin Chew] 81 MG Chew 81 Mg CHEW DAILY 30 Days Reported Dicyclomine (Dicyclomine HCl) 20 Mg Tab 20 Mg PO DAILY Lorazepam 0.5 Mg Tab 0.5 Mg PO Q6H PRN Synthroid (Levothyroxine Sodium) 112 Mcg Tab 112 Mcg PO DAILY Omeprazole 40 Mg Cap 20 Mg PO BID Metoprolol Tartrate 25 Mg Tab 25 Mg PO BID Fluoxetine (Fluoxetine HCl) 20 Mg Tab 20 Mg PO DAILY D3 Maximum Strength (Cholecalciferol) 5,000 Unit Cap 5,000 Units PO DAILY Atorvastatin (Atorvastatin Calcium) 40 Mg Tab 40 Mg PO HS Allergies: Coded Allergies: codeine (Unverified Allergy, Unknown, ITCH, 10/15/16) Family History Mother with Parkinson's, heart disease Father, brother with heart disease Social History Patient has not had any alcohol in the past month. Denies tobacco. Denies illicit drugs. Physical Exam Vital Signs Vital Signs Date Time Temp Pulse Resp B/P (MAP) Pulse Ox O2 Delivery O2 Flow Rate FiO2 10/15/16 18:35 97.6 47 19 104/83 (90) 93 10/15/16 15:47 10/15/16 14:41 97.8 71 15 100/69 100 10/15/16 13:59 80 15 106/78 98 10/15/16 13:06 97.8 80 16 91/68 100 10/15/16 12:51 98.2 80 16 113/61 99 10/15/16 12:27 98.5 68 15 112/66 99 10/15/16 11:24 84 18 119/92 (101) 98 10/15/16 10:00 100 19 97/72 (80) 99 Nasal Cannula 2.00 10/15/16 08:35 98.5 114 17 138/94 (109) 95 10/15/16 08:35 Nasal Cannula 2.00 10/15/16 08:35 92 Room Air Physical Exam GENERAL: This is a well-nourished, well-developed patient, in no apparent distress.appears pale. SKIN: No rashes, ecchymoses or lesions. Cool and dry. HEAD: Atraumatic. Normocephalic. No temporal or scalp tenderness. EYES: Pupils equal round and reactive. Extraocular motions intact. No scleral icterus. No injection or drainage. ENT: Nose without bleeding, purulent drainage or septal hematoma. Throat without erythema, tonsillar hypertrophy or exudate. Uvula midline. Airway patent. NECK: Trachea midline. No JVD or lymphadenopathy. Supple, nontender, no meningeal signs. CARDIOVASCULAR: Regular rate and rhythm without murmurs, gallops, or rubs. RESPIRATORY: Clear to auscultation. Breath sounds equal bilaterally. No wheezes , rales, or rhonchi. GASTROINTESTINAL: Abdomen soft, non-tender, nondistended. No hepato-splenomegaly , or palpable masses. No guarding. MUSCULOSKELETAL: Extremities without clubbing, cyanosis, or edema. No joint tenderness, effusion, or edema noted. No calf tenderness. Negative Homans sign bilaterally. NEUROLOGICAL: Awake and alert. Cranial nerves II through XII intact. Motor and sensory grossly within normal limits. Five out of 5 muscle strength in all muscle groups. Normal speech. Laboratory Laboratory Tests Test 10/15/16 08:44 10/15/16 15:52 10/15/16 16:10 10/15/16 20:42 White Blood Count 6.1 Red Blood Count 3.18 Hemoglobin 7.7 Hematocrit 24.9 Mean Corpuscular Volume 78.3 Mean Corpuscular Hemoglobin 24.1 Mean Corpuscular Hemoglobin Concent 30.8 Red Cell Distribution Width 17.1 Platelet Count 298 Mean Platelet Volume 7.8 Neutrophils (%) (Auto) 65.1 Lymphocytes (%) (Auto) 20.6 Monocytes (%) (Auto) 8.2 Eosinophils (%) (Auto) 2.2 Basophils (%) (Auto) 3.9 Neutrophils # (Auto) 4.0 Lymphocytes # (Auto) 1.3 Monocytes # (Auto) 0.5 Eosinophils # (Auto) 0.1 Basophils # (Auto) 0.2 CBC Comment AUTO DIFF Differential Comment AUTO DIFF CONFIRMED Ovalocytes 1+ Acanthocytes OCC Keratocytes OCC Prothrombin Time 11.9 Prothromb Time International Ratio 1.1 Activated Partial Thromboplast Time 26.5 Blood Urea Nitrogen 21 Creatinine 1.10 Random Glucose 153 Calcium Level 8.0 Magnesium Level 2.3 Sodium Level 140 Potassium Level 4.4 Chloride Level 106 Carbon Dioxide Level 22.0 Anion Gap 12 Estimat Glomerular Filtration Rate 49 Iron Level 24 Total Iron Binding Capacity 442 Percent Iron Saturation 5.4 Ferritin 16 Troponin I LESS THAN 0.02 LESS THAN 0.02 B-Type Natriuretic Peptide 324 Total Bilirubin 0.6 Direct Bilirubin 0.2 Indirect Bilirubin 0.4 Aspartate Amino Transf (AST/SGOT) 18 Alanine Aminotransferase (ALT/SGPT) 17 Alkaline Phosphatase 97 Total Protein 7.3 Albumin 3.5 Result Diagram: 10/15/1644 10/15/16 0844 Imaging Last Impressions Chest X-Ray 10/15/16 0831 Signed Impressions: Service Date/Time: Saturday, October 15, 2016 08:43 - CONCLUSION: Stable chest x-ray with findings characteristic of pulmonary edema and likely small bilateral pleural effusions. MD Dominga Levi VTE Risk Assessment Caprini VTE Risk Assessment: No/Low Risk (score <= 1) Caprini Risk Assessment Model Point Value = 1 Point Value = 2 Point Value = 3 Point Value = 5 Age 41-60 Minor surgery BMI > 25 kg/m2 Swollen legs Varicose veins or History of unexplained or recurrent spontaneous Oral contraceptives or hormone replacement Sepsis (< 1 month) Serious lung disease, including pneumonia (< 1 month) Abnormal pulmonary function Acute myocardial infarction Congestive heart failure (< 1 month) History of inflammatory bowel disease Medical patient at bed rest Age 61-74 Arthroscopic surgery Major open surgery (> 45 min) Laparoscopic surgery (> 45 min) Malignancy Confined to bed (> 72 hours) Immobilizing plaster cast Central venous access Age >= 75 History of VTE Family history of VTE Factor V Leiden Prothrombin [id number] Lupus anticoagulant Anticardiolipin antibodies Elevated serum homocysteine Heparin-induced thrombocytopenia Other congenital or acquired thrombophilia Stroke (< 1 month) Elective arthroplasty Hip, pelvis, or leg fracture Acute spinal cord injury (< 1 month) Prophylaxis Regimen Total Risk Factor Score Risk Level Prophylaxis Regimen 0-1 Low Early ambulation 2 Moderate Order ONE of the following: *Sequential Compression Device (SCD) *Heparin 5000 units SQ BID 3-4 Higher Order ONE of the following medications: *Heparin 5000 units SQ TID *Enoxaparin/Lovenox 40 mg SQ daily (WT < 150 kg, CrCl > 30 mL/min) *Enoxaparin/Lovenox 30 mg SQ daily (WT < 150 kg, CrCl > 10-29 mL/min) *Enoxaparin/Lovenox 30 mg SQ BID (WT < 150 kg, CrCl > 30 mL/min) AND/OR *Sequential Compression Device (SCD) 5 or more Highest Order ONE of the following medications: *Heparin 5000 units SQ TID (Preferred with Epidurals) *Enoxaparin/Lovenox 40 mg SQ daily (WT < 150 kg, CrCl > 30 mL/min) *Enoxaparin/Lovenox 30 mg SQ daily (WT < 150 kg, CrCl > 10-29 mL/min) *Enoxaparin/Lovenox 30 mg SQ BID (WT < 150 kg, CrCl > 30 mL/min) AND *Sequential Compression Device (SCD) Assessment and Plan Assessment and Plan //Symptomatic anemia //History of GERD -Continue patient on PPI. -Hold anticoagulation for now. Hemoglobin 7.7 down from baseline -Monitor hemoglobin -CT abdomen and pelvis pending. -GI consult. Appreciate assistance. //CHF exacerbation. Improved after Lasix on admission //Hyperlipidemia. //Aortic stenosis, aortic regurg. Chronic. //Atrial fibrillation. With RVR on admission. Spontaneously resolved. -Patient has history of stroke in the past, thus ideally would need to be on anticoagulation. -Continue home medications. Watch blood pressure closely. -Lasix ordered in ER. -Patient was in atrial fibrillation RVR with heart rate over 100 on presentation. Cardiology was consult. This resolved spontaneously. //History of depression. //History of anxiety No SI. Chronic. Continue home medication //Hypothyroidism. Chronic. TSH ordered and pending. Continue home dose of thyroxine. //Prophylaxis. Hold anticoagulation in the setting of GI bleed. Code Status full code Discussed Condition With patient, nurse, ED physician, gastroenterology Physician Certification 2 Midnight Certification Type: Admission for Inpatient Services Order for Inpatient Services The services are ordered in accordance with Medicare regulations or non- Medicare payer requirements, as applicable. In the case of services not specified as inpatient-only, they are appropriately provided as inpatient services in accordance with the 2-midnight benchmark. Estimated LOS (days): 2 days is the estimated time the patient will need to remain in the hospital, assuming treatment plan goals are met and no additional complications. Post-Hospital Plan: Not yet determined Cain Peterson MD Oct 15, 2016 21:04
--- NOTE | 2016-10-15 21:04 | RADRPT ---
EXAM DATE/TIME: 10/15/2016 20:02 [place] COMPARISON: CTA THORACIC ABDOMINAL AORTA W 3D RECON, January 21, 2016, 12:30. INDICATIONS : Abnormal report on CTA Thoracic Abdominal Aorta 01-21-2016. Anemia, bloating abnormal weight gain. ORAL CONTRAST: Prescribed oral contrast ingested. RADIATION DOSE: 17.91 CTDIvol (mGy) MEDICAL HISTORY : Aneurysm, abdominal. Cerebrovascular disease. Congestive heart failure.GERD, HTN, Diabetic, renal ca lculi SURGICAL HISTORY : Appendectomy. CABGHysterectomy. ENCOUNTER: Initial ACUITY: 1 day PAIN SCALE: 2/10 LOCATION: abdomen TECHNIQUE: Volumetric scanning of the abdomen and pelvis was performed. Using automated exposure control and ad justment of the mA and/or kV according to patient size, radiation dose was kept as low as reasonably achievable to obtain optimal diagnostic quality images. DICOM format image data is available electro nically for review and comparison. FINDINGS: LOWER LUNGS: Moderate pleural effusions with dependent/compressive atelectasis seen of the visualized lung bases. LIVER: Homogeneous density without lesion. There is no dilation of the biliary tree. No calcified gallston es. SPLEEN: Normal size without lesion. PANCREAS: Within normal limits. KIDNEYS: Chronic atrophy of the left kidney, unchanged. No acute abnormality seen in the right kidney. ADRENAL GLANDS: Within normal limits. VASCULAR: Tortuous and atherosclerotic abdominal aorta again noted. BOWEL/MESENTERY: The stomach, small bowel, and colon demonstrate no acute abnormality. There is right and left-sided colonic diverticulosis but no acute inflammatory change. There is no free intraperitoneal air or flui d. ABDOMINAL WALL: Within normal limits. RETROPERITONEUM: There is no lymphadenopathy. BLADDER: No wall thickening or mass. REPRODUCTIVE: Within normal limits. INGUINAL: There is no lymphadenopathy or hernia. MUSCULOSKELETAL: Within normal limits for patient age. CONCLUSION: 1. No acute abnormality seen within the abdomen or pelvis. 2. Pleural effusions are seen of the visualized lung bases. 3. Chronic left renal atrophy. 4. Diffuse diverticulosis of the colon. No diverticulitis. Hussain Roldan MD on October 15, 2016 at 21:00 Board Certified Radiologist. This report was verified electronically.
[2016-10-15] MEDS ORDERED: PANTOPRAZOLE SOD 20 MG DELAYED RELEASE TAB PO ONE (22:00)
[2016-10-16] VITALS (9 sets, daily range): BP systolic 85–137; BP diastolic 67–93; PULSE 55–103; RESP 18–21; TEMP 95.7–97.5; O2SAT 94–97
[2016-10-16] MEDS: LORazepam 0.5 MG TAB PO PRN (02:29)
[2016-10-16] MEDS: LEVOTHYROXINE SODIUM 112 MCG TAB PO SCH (05:45)
[2016-10-16 08:14] LABS: CHLORIDE 102 MEQ/L (98-107); POTASSIUM 3.9 MEQ/L (3.5-5.1); SODIUM (NA) 138 MEQ/L (136-145)
[2016-10-16 08:17] LABS: ANION GAP 10 MEQ/L (5-15); BICARBONATE 25.7 MEQ/L (21.0-32.0); BLOOD UREA NITROGEN 20 MG/DL (7-18)
[2016-10-16 08:20] LABS: ALT (GPT) 15 U/L (10-53); AST (GOT) 16 U/L (15-37); GLOMERULAR FILTRATION RATE 44 ML/MIN (>89)
[2016-10-16 08:21] LABS: AUTOMATED NEUTROPHIL # 5.4 TH/MM3 (1.8-7.7); BASOPHIL % 0.5 % (0.0-2.0); EOSINOPHIL # 0.2 TH/MM3 (0-0.4); EOSINOPHIL % 2.3 % (0.0-4.0); HEMATOCRIT 30.7 % (35.0-46.0); LYMPH % 20.8 % (9.0-44.0); LYMPHOCYTE # 1.6 TH/MM3 (1.0-4.8); MEAN CELL VOLUME 78.6 FL (80.0-100.0); MEAN CORPUSCULAR HGB CONC 30.6 % (32.0-36.0); MONO % 8.5 % (0.0-8.0); NEUT % 67.9 % (16.0-70.0); PLATELET COUNT 261 TH/MM3 (150-450); RED CELL DISTRIBUTION WIDTH 17.2 % (11.6-17.2); WHITE BLOOD COUNT 7.9 TH/MM3 (4.0-11.0)
[2016-10-16 08:22] LABS: TOTAL BILIRUBIN ADULT 0.6 MG/DL (0.2-1.0)
[2016-10-16 08:23] LABS: ALKALINE PHOSPHATASE 90 U/L (45-117)
[2016-10-16 08:30] LABS: HEMO FLAGS AUTO DIFF
[2016-10-16] MEDS: SODIUM CHLORIDE 0.9% FLUSH 10 ML FLUSH IV FLUSH SCH ×2 (08:46→20:16)
[2016-10-16] MEDS: DICYCLOMINE HCL 20 MG TAB PO SCH (08:48)
[2016-10-16] MEDS: METOPROLOL TARTRATE 25 MG TAB PO SCH ×2 (08:49→20:15)
[2016-10-16] MEDS: CHOLECALCIFEROL (VIT D3) 5000 UNIT CAP PO SCH (08:49)
[2016-10-16] MEDS: FLUoxetine HCL 20 MG CAP PO SCH (08:49)
[2016-10-16] MEDS: DOCUSATE SODIUM 50 MG/SENNA 8.6 MG TAB PO SCH ×2 (08:49→20:15)
[2016-10-16] MEDS: ASPIRIN 81 MG CHEW TAB CHEW SCH (08:49)
[2016-10-16 09:30] LABS: SCAN/DIFF AUTO DIFF CONFIRMED
[2016-10-16] MEDS: PANTOPRAZOLE SODIUM 40 MG VIAL IV PUSH SCH ×2 (11:53→23:47)
--- NOTE | 2016-10-16 14:20 | HHI.PR ---
Subjective Remarks Patient seen this morning. Says she feels much better. Denies any shortness of breath. Denies any chest pain. Objective Vital Signs Date Time Temp Pulse Resp B/P (MAP) Pulse Ox O2 Delivery O2 Flow Rate FiO2 10/16/16 08:00 96.0 63 21 97 10/16/16 04:00 96.0 103 18 137/93 (108) 95 10/16/16 00:00 97.5 55 18 130/84 (99) 95 10/15/16 20:00 96.7 85 18 170/95 (120) 95 10/15/16 20:00 94 10/15/16 18:35 97.6 47 19 104/83 (90) 93 10/15/16 15:47 10/15/16 14:41 97.8 71 15 100/69 100 I/O 10/15/16 10/15/16 10/15/16 10/16/16 10/16/16 10/16/16 06:59 14:59 22:59 06:59 14:59 22:59 Intake Total 570 ml 20 ml Balance 570 ml 20 ml Intake IV Total 20 ml Packed Cells 250 ml Blood Product IV Normal Saline Flush 320 ml # Voids 1 Result Diagram: 10/16/16 1258 10/16/16 0715 Objective Remarks GENERAL: Patient sitting up on edge of bed. Appears comfortable. SKIN: Warm and dry. HEAD: Normocephalic. EYES: No scleral icterus. No injection or drainage. NECK: Supple, trachea midline. No JVD or lymphadenopathy. CARDIOVASCULAR: Regular rate and rhythm without murmurs, gallops, or rubs. RESPIRATORY: Breath sounds equal bilaterally. No accessory muscle use. GASTROINTESTINAL: Abdomen soft, non-tender, nondistended. MUSCULOSKELETAL: No cyanosis, or edema. BACK: Nontender without obvious deformity. No CVA tenderness. A/P Assessment and Plan ==10/16/16========= -Hemoglobin improved in the nines -Difficult situation with history of stroke, A. fib, GI bleed. cont to hold anticoagulation. Ordered cardiology consultation for EGD/colonoscopy clearance. //Left ankle infection. Previous biopsy site. We'll start antibiotics. //Symptomatic anemia //History of GERD -Continue patient on PPI. -Hold anticoagulation for now. Hemoglobin 7.7 down from baseline -Monitor hemoglobin -CT abdomen and pelvis pending. -GI consult. Appreciate assistance. //CHF exacerbation. Improved after Lasix on admission //Hyperlipidemia. //Aortic stenosis, aortic regurg. Chronic. //Atrial fibrillation. With RVR on admission. Spontaneously resolved. -Patient has history of stroke in the past, thus ideally would need to be on anticoagulation. -Continue home medications. Watch blood pressure closely. -Lasix ordered in ER. -Patient was in atrial fibrillation RVR with heart rate over 100 on presentation. Cardiology was consult. This resolved spontaneously. //History of depression. //History of anxiety No SI. Chronic. Continue home medication //Hypothyroidism. Chronic. TSH ordered and pending. Continue home dose of thyroxine. //Prophylaxis. Hold anticoagulation in the setting of GI bleed. Discharge Planning When cleared by gastroenterology Cain Peterson MD Oct 16, 2016 14:20
[2016-10-16] MEDS: CEPHALEXIN MONOHYDRATE 500 MG CAP PO SCH ×3 (15:07→23:47)
--- NOTE | 2016-10-16 16:22 | HHI.GIFU ---
Subjective Remarks Asymptomatic and more diarrhea and no evidence of active bleeding. Objective Vitals I&O Vital Signs Date Time Temp Pulse Resp B/P (MAP) Pulse Ox O2 Delivery O2 Flow Rate FiO2 10/16/16 16:16 87 10/16/16 12:00 95.7 78 20 95 10/16/16 08:01 74 10/16/16 08:00 96.0 63 21 97 10/16/16 04:00 96.0 103 18 137/93 (108) 95 10/16/16 00:00 97.5 55 18 130/84 (99) 95 10/15/16 20:00 96.7 85 18 170/95 (120) 95 10/15/16 20:00 94 10/15/16 18:35 97.6 47 19 104/83 (90) 93 I/O 10/15/16 10/15/16 10/15/16 10/16/16 10/16/16 10/16/16 07:00 15:00 23:00 07:00 15:00 23:00 Intake Total 570 ml 20 ml Balance 570 ml 20 ml Intake IV Total 20 ml Packed Cells 250 ml Blood Product IV Normal Saline Flush 320 ml # Voids 1 1 # Bowel Movements 1 Laboratory Laboratory Tests Test 10/15/16 20:42 10/15/16 22:10 10/16/16 07:15 10/16/16 12:58 Tumor Marker Alpha Fetoprotein 2.7 Carcinoembryonic Antigen 1.0 CA 19-9 Antigen 7.0 Hemoglobin 9.0 9.4 9.3 White Blood Count 7.9 Red Blood Count 3.90 Hematocrit 30.7 Mean Corpuscular Volume 78.6 Mean Corpuscular Hemoglobin 24.0 Mean Corpuscular Hemoglobin Concent 30.6 Red Cell Distribution Width 17.2 Platelet Count 261 Mean Platelet Volume 8.2 Neutrophils (%) (Auto) 67.9 Lymphocytes (%) (Auto) 20.8 Monocytes (%) (Auto) 8.5 Eosinophils (%) (Auto) 2.3 Basophils (%) (Auto) 0.5 Neutrophils # (Auto) 5.4 Lymphocytes # (Auto) 1.6 Monocytes # (Auto) 0.7 Eosinophils # (Auto) 0.2 Basophils # (Auto) 0.0 CBC Comment AUTO DIFF Differential Comment AUTO DIFF CONFIRMED Blood Urea Nitrogen 20 Creatinine 1.20 Random Glucose 113 Total Protein 6.8 Albumin 3.3 Calcium Level 8.2 Alkaline Phosphatase 90 Aspartate Amino Transf (AST/SGOT) 16 Alanine Aminotransferase (ALT/SGPT) 15 Total Bilirubin 0.6 Sodium Level 138 Potassium Level 3.9 Chloride Level 102 Carbon Dioxide Level 25.7 Anion Gap 10 Estimat Glomerular Filtration Rate 44 Date/Time Source Procedure Growth Status 10/16/16 13:56 Stool Stool Stool Occult Blood ([facility]ANEKA) Pending Received Physical Exam HEENT: Pale, Pupils round and reactive to light; normocephalic; atraumatic; no jaundice. Throat is clear. NECK: Neck is supple, no JVD, no lymphadenopathy. CHEST: Chest is clear to auscultation and percussion. CARDIAC: Regular rate and rhythm with no murmur gallop or rubs. ABDOMEN: Soft, nondistended, nontender; no hepatosplenomegaly; bowel sounds are present in all four quadrants. EXTREMITIES: No clubbing, cyanosis, or edema. Assessment and Plan Plan ASSESSMENT: - Symptomatic anemia. Etiology of this unclear. No indication of active bleed. - Chronic diarrhea etiology unclear. According to the patient, she had extensive gastrointestinal workup. - Chest pain, cardiac work up pending RECOMMENDATIONS - Daily HH - Cardiac clearance - Prep for Panendoscopy tuesday after clearance - Further recommendations to follow. Shahram Hurd MD Oct 16, 2016 16:22
--- NOTE | 2016-10-16 18:56 | EKG ---
Date Performed: 10/15/2016 Time Performed: 08:17:13 PTAGE: 71 years EKG: ATRIAL FIBRILLATION WITH RAPID VENTRICULAR RESPONSE SEPTAL MYOCARDIAL INFARCTION MODERATE T -WAVE ABNORMALITY ABNORMAL ECG Compared to the PREVIOUS TRACING RATE FASTER DOCTOR: Silvia Adair Interpretating Date/Time 10/16/2016 18:55:16
[2016-10-16] MEDS: ATORVASTATIN 40 MG TAB PO SCH (20:16)
--- NOTE | 2016-10-16 21:04 | PD.CONS ---
HPI Consult Requested By Primary Care Physician Non-Staff History of Present Illness 71-year-old F with cardiac hx significant for CAD s/p CABG, recent LHC showing patent graft and stents, moderate , atrial fibrillation that presented to the ED with complaints of SOB, dyspnea on exertion for approximately one day, along with productive cough. She was found to have a significant drop in hemoglobin requiring 1 UPRBC. She denies any melena, hematemesis, hematochezia, dysphagia or odynophagia, epistaxis or bleeding from any other sites. She reports being slightly anemic two or three weeks ago and, at that time, Eliquis was discontinued by her financial accounting analyst. She consulted for GI evaluation. GI is planning to do Endo/Colonoscopy. Cardiology has been consulted for clearance.She denied chest pain, palpitations or syncope.EKG atrial fibrillation with adequate ventricular response. Review of Systems Consitutional: DENIES: Fatigue, Fever, Chills, Weight gain, Weight loss Eyes: DENIES: Amaurosis Fugax, Change in vision HEENT: DENIES: Lightheadedness, Change in hearing Respiratory: COMPLAINS OF: Shortness of breath, DENIES: See HPI, Cough, Snoring , Wheezing, Sputum production Cardiovascular: DENIES: See HPI, Chest pain, Palpitations, Syncope, Tachycardia Gastrointestinal: DENIES: Nausea, Vomiting, Change in bowel habits, Reflux, Bloody stools, Melena Genitourinary: DENIES: Urinary incontinence, Difficulty voiding Integumentary: DENIES: Rash Neurologic: DENIES: Tingling or numbness, Memory problems, Poor Balance, Stroke symptoms Musculoskeletal: DENIES: Joint pain, Muscle pain, Limited range of motion, Back pain Psychiatric: DENIES: Anxiety, Depression, Sleep disturbances Hematologic: DENIES: Bruising tendencies, Bleeding tendencies Endocrine: DENIES: Weight gain, Weight loss, Thyroid disease Past Family Social History Allergies: Coded Allergies: codeine (Unverified Allergy, Unknown, ITCH, 10/15/16) Past Medical History 1. Aortic stenosis, 2. Hypothyroidism, 3. Hypertension, 4. Hyperlipidemia, 5. Reflux, 6. Anxiety depression 7. History of a stroke 8. History of carotid artery disease Past Surgical History 1. Appendectomy, 2. Cardiac stents 3. Hysterectomy 4. Carotid endarterectomy stents Reported Medications Reported Meds & Active Scripts Active [Aspirin Chew] 81 MG Chew 81 Mg CHEW DAILY 30 Days Reported Dicyclomine (Dicyclomine HCl) 20 Mg Tab 20 Mg PO DAILY Lorazepam 0.5 Mg Tab 0.5 Mg PO Q6H PRN Synthroid (Levothyroxine Sodium) 112 Mcg Tab 112 Mcg PO DAILY Omeprazole 40 Mg Cap 20 Mg PO BID Metoprolol Tartrate 25 Mg Tab 25 Mg PO BID Fluoxetine (Fluoxetine HCl) 20 Mg Tab 20 Mg PO DAILY D3 Maximum Strength (Cholecalciferol) 5,000 Unit Cap 5,000 Units PO DAILY Atorvastatin (Atorvastatin Calcium) 40 Mg Tab 40 Mg PO HS Active Ordered Medications Current Medications Medications (Trade) Dose Ordered Sig/Isai Route Start Time Stop Time Status Last Admin (NS Flush) 2 ml UNSCH PRN IV FLUSH 10/15/16 10:00 (NS Flush) 2 ml BID IV FLUSH 10/15/16 21:00 10/16/16 20:16 (Zofran Inj) 4 mg Q6H PRN IVP 10/15/16 10:00 (Narcan Inj) 0.4 mg UNSCH PRN IV 10/15/16 10:00 (Beth-Colace) 1 tab BID PO 10/15/16 21:00 10/16/16 20:15 (Milk Of Magnesia Liq) 30 ml Q12H PRN PO 10/15/16 10:00 10/16/16 11:53 (Senokot) 17.2 mg Q12H PRN PO 10/15/16 10:00 (Dulcolax Supp) 10 mg DAILY PRN RECTAL 10/15/16 10:00 (Lactulose Liq) 30 ml DAILY PRN PO 10/15/16 10:00 Diltiazem HCl 125 mg/Sodium Chloride 125 ml @ 5 mls/hr TITRATE PRN IV 10/15/16 10:15 (Cardizem Inj) 20 mg UNSCH X1 PRN IV PUSH 10/15/16 10:30 10/18/16 10:29 (Protonix Inj) 40 mg Q12H IV PUSH 10/15/16 11:00 10/16/16 11:53 (Lipitor) 40 mg HS PO 10/15/16 21:00 10/16/16 20:16 (Bentyl) 20 mg DAILY PO 10/16/16 09:00 10/16/16 08:48 (PROzac) 20 mg DAILY PO 10/16/16 09:00 10/16/16 08:49 (Ativan) 0.5 mg Q6H PRN PO 10/15/16 10:15 10/16/16 02:29 (Lopressor) 25 mg BID PO 10/15/16 21:00 10/16/16 20:15 (Vitamin D3) 5,000 units DAILY PO 10/16/16 09:00 10/16/16 08:49 (Synthroid) 112 mcg DAILY@0600 PO 10/16/16 06:00 10/16/16 05:45 (Aspirin Chew) 81 mg DAILY CHEW 10/16/16 09:00 10/16/16 08:49 (Keflex) 500 mg Q6HR PO 10/16/16 14:30 10/16/16 18:04 Physical Exam Vital Signs Vital Signs Date Time Temp Pulse Resp B/P (MAP) Pulse Ox O2 Delivery O2 Flow Rate FiO2 10/16/16 16:16 87 10/16/16 16:00 97.3 86 20 112/77 (89) 95 10/16/16 12:00 95.7 78 20 95 10/16/16 08:01 74 10/16/16 08:00 96.0 63 21 97 10/16/16 04:00 96.0 103 18 137/93 (108) 95 10/16/16 00:00 97.5 55 18 130/84 (99) 95 Physical Exam GENERAL: Well-nourished, well-developed patient. Pale SKIN: Warm and dry. HEAD: Normocephalic. EYES: No scleral icterus. No injection or drainage. NECK: Supple, trachea midline. No JVD or lymphadenopathy. CARDIOVASCULAR: Regular rate and rhythm without murmurs, gallops, or rubs. RESPIRATORY: Breath sounds equal bilaterally. No accessory muscle use. GASTROINTESTINAL: Abdomen soft, non-tender, nondistended. EXTREMITIES: No cyanosis, or edema. NEUROLOGICAL: Awake, alert, and oriented x 3. Non-focal. Laboratory Laboratory Tests Test 10/15/16 22:10 10/16/16 07:15 10/16/16 12:58 10/16/16 20:30 Hemoglobin 9.0 9.4 9.3 9.4 White Blood Count 7.9 Red Blood Count 3.90 Hematocrit 30.7 Mean Corpuscular Volume 78.6 Mean Corpuscular Hemoglobin 24.0 Mean Corpuscular Hemoglobin Concent 30.6 Red Cell Distribution Width 17.2 Platelet Count 261 Mean Platelet Volume 8.2 Neutrophils (%) (Auto) 67.9 Lymphocytes (%) (Auto) 20.8 Monocytes (%) (Auto) 8.5 Eosinophils (%) (Auto) 2.3 Basophils (%) (Auto) 0.5 Neutrophils # (Auto) 5.4 Lymphocytes # (Auto) 1.6 Monocytes # (Auto) 0.7 Eosinophils # (Auto) 0.2 Basophils # (Auto) 0.0 CBC Comment AUTO DIFF Differential Comment AUTO DIFF CONFIRMED Blood Urea Nitrogen 20 Creatinine 1.20 Random Glucose 113 Total Protein 6.8 Albumin 3.3 Calcium Level 8.2 Alkaline Phosphatase 90 Aspartate Amino Transf (AST/SGOT) 16 Alanine Aminotransferase (ALT/SGPT) 15 Total Bilirubin 0.6 Sodium Level 138 Potassium Level 3.9 Chloride Level 102 Carbon Dioxide Level 25.7 Anion Gap 10 Estimat Glomerular Filtration Rate 44 Date/Time Source Procedure Growth Status 10/16/16 13:56 Stool Stool Stool Occult Blood (SHANEKA) - Final HEMOCCULT NEGATIVE Complete Result Diagram: 10/16/16202910/16/16 0715 Imaging Last Impressions Chest X-Ray 10/15/16 0831 Signed Impressions: Service Date/Time: Saturday, October 15, 2016 08:43 - CONCLUSION: Stable chest x-ray with findings characteristic of pulmonary edema and likely small bilateral pleural effusions. Hussain Gilbert MD Abdomen/Pelvis CT 10/15/16 0000 Signed Impressions: Service Date/Time: Saturday, October 15, 2016 20:02 - CONCLUSION: 1. No acute abnormality seen within the abdomen or pelvis. 2. Pleural effusions are seen of the visualized lung bases. 3. Chronic left renal atrophy. 4. Diffuse diverticulosis of the colon. No diverticulitis. Hussain Roldan MD Assessment and Plan Problem List: (1) Anemia ICD Codes: D64.9 - Anemia, unspecified Plan: 71 y/o F with CAD s/p CABG, Afib and Moderate admitted with SOB in the setting of anemia. Agree with GI evaluation. Patient with good functional capacity at baseline, undergoing low risk procedure. Recent LHC and Echo reviewed. She has moderate , preserved LV systolic function and patent grafts and stents. No additional cardiac work up needed prior to procedure. Continue pre-operative blockers, rate control for Afib. Given acute anemia she is not a candidate for OAC at this time. Recommendations: - Rate control - Beth-operative BB - Not OAC candidate given bleeding - No need for further cardiac work up prior to colonoscopy Thank you for the opportunity to participate in the care of this patient. Sign off (2) CAD (coronary artery disease) ICD Codes: I25.10 - Atherosclerotic heart disease of [place] coronary artery without angina pectoris Status: Acute (3) Hyperlipidemia ICD Codes: E78.5 - Hyperlipidemia, unspecified Status: Chronic (4) CHF exacerbation ICD Codes: I50.9 - Heart failure, unspecified Status: Acute (5) Aortic stenosis ICD Codes: I35.0 - Nonrheumatic aortic (valve) stenosis Status: Acute (6) Diabetes mellitus ICD Codes: E11.9 - Type 2 diabetes mellitus without complications Status: Chronic Problem Qualifiers (1) Aortic stenosis: Qualified Codes: I35.0 - Nonrheumatic aortic (valve) stenosis Silvino Gutierrez MD Oct 16, 2016 21:04
[2016-10-17] VITALS (7 sets, daily range): BP systolic 108–147; BP diastolic 78–97; PULSE 69–91; RESP 20; TEMP 96.4–97.8; O2SAT 95–98
[2016-10-17] MEDS: CEPHALEXIN MONOHYDRATE 500 MG CAP PO SCH ×4 (05:13→23:37)
[2016-10-17] MEDS: LEVOTHYROXINE SODIUM 112 MCG TAB PO SCH (05:13)
[2016-10-17 08:03] LABS: AUTOMATED NEUTROPHIL # 4.3 TH/MM3 (1.8-7.7); BASOPHIL # 0.1 TH/MM3 (0-0.2); BASOPHIL % 1.2 % (0.0-2.0); EOSINOPHIL # 0.2 TH/MM3 (0-0.4); EOSINOPHIL % 3.3 % (0.0-4.0); HEMATOCRIT 27.9 % (35.0-46.0); LYMPH % 22.1 % (9.0-44.0); LYMPHOCYTE # 1.4 TH/MM3 (1.0-4.8); MEAN CORPUSCULAR HEMOGLOBIN 24.3 PG (27.0-34.0); MEAN CORPUSCULAR HGB CONC 31.6 % (32.0-36.0); MONO % 7.8 % (0.0-8.0); NEUT % 65.6 % (16.0-70.0); PLATELET COUNT 204 TH/MM3 (150-450); RED BLOOD COUNT 3.62 MIL/MM3 (4.00-5.30); RED CELL DISTRIBUTION WIDTH 16.6 % (11.6-17.2); WHITE BLOOD COUNT 6.5 TH/MM3 (4.0-11.0)
[2016-10-17 08:15] LABS: HEMO FLAGS AUTO DIFF
[2016-10-17 08:17] LABS: BICARBONATE 24.8 MEQ/L (21.0-32.0); MAGNESIUM 2.4 MG/DL (1.5-2.5)
[2016-10-17 08:36] LABS: SCAN/DIFF AUTO DIFF CONFIRMED
[2016-10-17] MEDS: CHOLECALCIFEROL (VIT D3) 5000 UNIT CAP PO SCH (08:45)
[2016-10-17] MEDS: FLUoxetine HCL 20 MG CAP PO SCH (08:45)
[2016-10-17] MEDS: METOPROLOL TARTRATE 25 MG TAB PO SCH ×2 (08:45→20:25)
[2016-10-17] MEDS: DICYCLOMINE HCL 20 MG TAB PO SCH (08:46)
[2016-10-17] MEDS: ASPIRIN 81 MG CHEW TAB CHEW SCH (08:46)
[2016-10-17] MEDS: DOCUSATE SODIUM 50 MG/SENNA 8.6 MG TAB PO SCH ×2 (08:46→20:25)
[2016-10-17] MEDS: SODIUM CHLORIDE 0.9% FLUSH 10 ML FLUSH IV FLUSH SCH ×2 (08:46→20:25)
[2016-10-17] MEDS ORDERED: BISACODYL EC 5 MG TABEC PO ONE (11:00)
[2016-10-17] MEDS: PANTOPRAZOLE SODIUM 40 MG VIAL IV PUSH SCH ×2 (11:19→23:38)
--- NOTE | 2016-10-17 15:09 | HHI.PR ---
Subjective Remarks Patient seen this morning says she feels all right. As any chest pain or shortness of breath. Denies any bleeding. Objective Vital Signs Date Time Temp Pulse Resp B/P (MAP) Pulse Ox O2 Delivery O2 Flow Rate FiO2 10/17/16 12:00 96.7 72 20 118/89 (99) 98 10/17/16 08:00 97.5 86 20 108/82 (91) 96 10/17/16 04:00 96.8 69 20 120/88 (99) 98 10/17/16 00:00 96.4 80 20 135/78 (97) 95 10/16/16 23:00 75 10/16/16 20:00 97.5 90 20 85/67 (73) 94 10/16/16 16:16 87 10/16/16 16:00 97.3 86 20 112/77 (89) 95 I/O 10/16/16 10/16/16 10/16/16 10/17/16 10/17/16 10/17/16 06:59 14:59 22:59 06:59 14:59 22:59 Intake Total 240 ml 120 ml 840 ml Balance 240 ml 120 ml 840 ml Intake Oral 240 ml 120 ml 840 ml # Voids 1 4 3 4 # Bowel Movements 1 0 1 3 Result Diagram: 10/17/1664610/17/16646 Objective Remarks GENERAL: Patient sitting up on edge of bed. Appears comfortable. SKIN: Warm and dry. Left lower extremity with 3 cm ulcer anteriorly, with minimal surrounding erythema. Fibrinous exudate. No Pus HEAD: Normocephalic. EYES: No scleral icterus. No injection or drainage. NECK: Supple, trachea midline. No JVD or lymphadenopathy. CARDIOVASCULAR: Regular rate and rhythm without murmurs, gallops, or rubs. RESPIRATORY: Breath sounds equal bilaterally. No accessory muscle use. GASTROINTESTINAL: Abdomen soft, non-tender, nondistended. MUSCULOSKELETAL: No cyanosis, or edema. BACK: Nontender without obvious deformity. No CVA tenderness. A/P Assessment and Plan ==10/16/16========= -Hemoglobin improved in the nines -Difficult situation with history of stroke, A. fib, GI bleed. cont to hold anticoagulation. Ordered cardiology consultation for EGD/colonoscopy clearance. //Left ankle infection. Previous biopsy site. We'll start antibiotics. //Symptomatic anemia //History of GERD -Continue patient on PPI. -Hold anticoagulation for now. Hemoglobin 7.7 down from baseline -Monitor hemoglobin -CT abdomen and pelvis pending. -GI consult. Appreciate assistance. //CHF exacerbation. Improved after Lasix on admission //Hyperlipidemia. //Aortic stenosis, aortic regurg. Chronic. //Atrial fibrillation. With RVR on admission. Spontaneously resolved. -Patient has history of stroke in the past, thus ideally would need to be on anticoagulation. -Continue home medications. Watch blood pressure closely. -Lasix ordered in ER. -Patient was in atrial fibrillation RVR with heart rate over 100 on presentation. Cardiology was consult. This resolved spontaneously. //History of depression. //History of anxiety No SI. Chronic. Continue home medication //Hypothyroidism. Chronic. TSH ordered and pending. Continue home dose of thyroxine. //Prophylaxis. Hold anticoagulation in the setting of GI bleed. Discharge Planning When cleared by gastroenterology Cain Peterson MD Oct 17, 2016 15:09
[2016-10-17] MEDS ORDERED: PEG (High)/E-LYTE SOLN 4000 ML BTL PO ONE (16:00)
[2016-10-17] MEDS: COLLAGENASE OINT 30 GM TUBE TOPICAL SCH (16:02)
[2016-10-17] MEDS: ATORVASTATIN 40 MG TAB PO SCH (20:25)
[2016-10-18] VITALS (9 sets, daily range): BP systolic 76–163; BP diastolic 61–94; PULSE 54–92; RESP 18–20; TEMP 96.1–98.1; O2SAT 92–100
[2016-10-18] MEDS: LEVOTHYROXINE SODIUM 112 MCG TAB PO SCH (05:09)
[2016-10-18] MEDS: CEPHALEXIN MONOHYDRATE 500 MG CAP PO SCH ×3 (05:10→17:58)
[2016-10-18 06:05] LABS: AUTOMATED NEUTROPHIL # 4.7 TH/MM3 (1.8-7.7); BASOPHIL % 0.6 % (0.0-2.0); EOSINOPHIL # 0.3 TH/MM3 (0-0.4); EOSINOPHIL % 3.6 % (0.0-4.0); HEMATOCRIT 30.9 % (35.0-46.0); LYMPH % 25.5 % (9.0-44.0); MEAN CELL VOLUME 76.7 FL (80.0-100.0); MEAN CORPUSCULAR HGB CONC 31.3 % (32.0-36.0); MONO % 9.5 % (0.0-8.0); NEUT % 60.8 % (16.0-70.0); PLATELET COUNT 311 TH/MM3 (150-450); RED BLOOD COUNT 4.04 MIL/MM3 (4.00-5.30); RED CELL DISTRIBUTION WIDTH 16.6 % (11.6-17.2); WHITE BLOOD COUNT 7.7 TH/MM3 (4.0-11.0)
[2016-10-18 06:06] LABS: HEMO FLAGS AUTO DIFF
[2016-10-18 06:15] LABS: POTASSIUM 3.8 MEQ/L (3.5-5.1)
[2016-10-18 06:20] LABS: BICARBONATE 25.7 MEQ/L (21.0-32.0); MAGNESIUM 2.3 MG/DL (1.5-2.5)
[2016-10-18 07:38] LABS: PLATELET ESTIMATE SMEAR NORMAL (NORMAL); PLATELET MORPHOLOGY NORMAL (NORMAL); SCAN/DIFF AUTO DIFF CONFIRMED
[2016-10-18] MEDS: LORazepam 0.5 MG TAB PO PRN (07:52)
[2016-10-18] MEDS: SODIUM CHLORIDE 0.9% FLUSH 10 ML FLUSH IV FLUSH SCH (07:53)
[2016-10-18] MEDS: METOPROLOL TARTRATE 25 MG TAB PO SCH (07:53)
[2016-10-18] MEDS: DOCUSATE SODIUM 50 MG/SENNA 8.6 MG TAB PO SCH (09:00)
--- NOTE | 2016-10-18 11:06 | HHI.PR ---
Subjective Remarks Patient seen this morning around 9 AM. Says she is feeling all right. Denies any chest pain or shortness of breath. Denies any nausea or vomiting. Objective Vital Signs Date Time Temp Pulse Resp B/P (MAP) Pulse Ox O2 Delivery O2 Flow Rate FiO2 10/18/16 08:19 97.6 55 19 138/87 (104) 92 10/18/16 06:45 84 10/18/16 04:00 96.1 73 18 142/85 (104) 94 10/18/16 00:00 96.7 92 20 124/80 (95) 100 10/17/16 23:00 91 10/17/16 20:00 96.5 75 20 147/97 (114) 95 10/17/16 15:36 97.8 73 20 120/84 (96) 96 10/17/16 12:00 96.7 72 20 118/89 (99) 98 I/O 10/17/16 10/17/16 10/17/16 10/18/16 10/18/16 10/18/16 07:00 15:00 23:00 07:00 15:00 23:00 Intake Total 120 ml 840 ml 4000 ml 30 ml Balance 120 ml 840 ml 4000 ml 30 ml Intake Oral 120 ml 840 ml 4000 ml 30 ml # Voids 3 4 # Bowel Movements 1 3 Result Diagram: 10/18/16 0509 10/18/16 0509 Objective Remarks GENERAL: Patient sitting up on edge of bed. Appears comfortable. SKIN: Warm and dry. Left lower extremity with 3 cm ulcer anteriorly, dressing clean dry and intact HEAD: Normocephalic. EYES: No scleral icterus. No injection or drainage. NECK: Supple, trachea midline. No JVD or lymphadenopathy. CARDIOVASCULAR: Regular rate and rhythm without murmurs, gallops, or rubs. RESPIRATORY: Breath sounds equal bilaterally. No accessory muscle use. GASTROINTESTINAL: Abdomen soft, non-tender, nondistended. MUSCULOSKELETAL: No cyanosis, or edema. BACK: Nontender without obvious deformity. No CVA tenderness. A/P Assessment and Plan 71-year-old female with a history of atrial fibrillation, past strokes on CT imaging, who presents with weakness, suspected GI bleed. We are holding anticoagulation here. Difficult situation given past history of strokes. Cardiology and gastroenterology assistance appreciated. ==10/18/16========= hg and 9.7. Improved off anticoagulation. -Colonoscopy planned for today. Appreciate GI assistance. //Left ankle infection. Continue Keflex. Central. Wound care consult pending. //Symptomatic anemia //History of GERD -Continue patient on PPI. -Hold anticoagulation for now. Hemoglobin 7.7 down from baseline -Monitor hemoglobin -CT abdomen and pelvis pending. -GI consult. Appreciate assistance. //CHF exacerbation. Improved after Lasix on admission //Hyperlipidemia. //Aortic stenosis, aortic regurg. Chronic. //Atrial fibrillation. With RVR on admission. Spontaneously resolved. -Patient has history of stroke in the past, thus ideally would need to be on anticoagulation. -Continue home medications. Watch blood pressure closely. -Lasix ordered in ER. -Patient was in atrial fibrillation RVR with heart rate over 100 on presentation. Cardiology was consult. This resolved spontaneously. -Cardiology has cleared for colonoscopy/EGD. //History of depression. //History of anxiety No SI. Chronic. Continue home medication //Hypothyroidism. Chronic. TSH ordered and pending. Continue home dose of thyroxine. //Prophylaxis. Hold anticoagulation in the setting of GI bleed. Discharge Planning When cleared by gastroenterology Cain Peterson MD Oct 18, 2016 11:06
[2016-10-18] MEDS: PANTOPRAZOLE SODIUM 40 MG VIAL IV PUSH SCH (11:34)
[2016-10-18] MEDS ORDERED: CHLORHEXIDINE GLUCONATE 2 % 1 PACK (2 CLOTHS) TOPICAL PRN (13:15)
[2016-10-18] MEDS ORDERED: POVIDONE IODINE 5% (ANTISEPSIS KIT) 4 APPLICATIONS EACH NARE PRN (13:15)
[2016-10-18] MEDS ORDERED: SODIUM CHLORID 0.9% 500 ML IV PRN (13:15)
[2016-10-18] MEDS ORDERED: LACTATED RINGER'S 1000 ML IV PRN (13:15)
[2016-10-18] MEDS ORDERED: INSULIN HUMAN REGULAR 1,000 UNITS/10 ML VIAL SQ PRN (13:15)
--- NOTE | 2016-10-18 13:33 | HHI.GIFU ---
Subjective Remarks patient is doing ok, unable to determine if she has diarrhea because of colonoscopy prep. Objective Vitals I&O Vital Signs Date Time Temp Pulse Resp B/P (MAP) Pulse Ox O2 Delivery O2 Flow Rate FiO2 10/18/16 12:55 96.1 73 19 129/94 (106) 94 10/18/16 12:12 97.6 76 18 135/84 (101) 92 10/18/16 08:19 97.6 55 19 138/87 (104) 92 10/18/16 06:45 84 10/18/16 04:00 96.1 73 18 142/85 (104) 94 10/18/16 00:00 96.7 92 20 124/80 (95) 100 10/17/16 23:00 91 10/17/16 20:00 96.5 75 20 147/97 (114) 95 10/17/16 15:36 97.8 73 20 120/84 (96) 96 I/O 10/17/16 10/17/16 10/17/16 10/18/16 10/18/16 10/18/16 06:59 14:59 22:59 06:59 14:59 22:59 Intake Total 120 ml 840 ml 4000 ml 30 ml Balance 120 ml 840 ml 4000 ml 30 ml Intake Oral 120 ml 840 ml 4000 ml 30 ml # Voids 3 4 # Bowel Movements 1 3 Laboratory Laboratory Tests Test 10/17/16 15:46 10/18/16 05:09 Hemoglobin 8.9 9.7 White Blood Count 7.7 Red Blood Count 4.04 Hematocrit 30.9 Mean Corpuscular Volume 76.7 Mean Corpuscular Hemoglobin 24.0 Mean Corpuscular Hemoglobin Concent 31.3 Red Cell Distribution Width 16.6 Platelet Count 311 Mean Platelet Volume 8.1 Neutrophils (%) (Auto) 60.8 Lymphocytes (%) (Auto) 25.5 Monocytes (%) (Auto) 9.5 Eosinophils (%) (Auto) 3.6 Basophils (%) (Auto) 0.6 Neutrophils # (Auto) 4.7 Lymphocytes # (Auto) 2.0 Monocytes # (Auto) 0.7 Eosinophils # (Auto) 0.3 Basophils # (Auto) 0.0 CBC Comment AUTO DIFF Differential Comment AUTO DIFF CONFIRMED Platelet Estimate NORMAL Platelet Morphology Comment NORMAL Blood Urea Nitrogen 16 Creatinine 1.10 Random Glucose 108 Albumin 3.4 Calcium Level 8.5 Phosphorus Level 4.6 Magnesium Level 2.3 Sodium Level 140 Potassium Level 3.8 Chloride Level 104 Carbon Dioxide Level 25.7 Anion Gap 10 Estimat Glomerular Filtration Rate 49 Date/Time Source Procedure Growth Status 10/16/16 13:56 Stool Stool Stool Occult Blood (SHANEKA) - Final HEMOCCULT NEGATIVE Complete Physical Exam HEENT: Pale, Pupils round and reactive to light; normocephalic; atraumatic; no jaundice. Throat is clear. NECK: Neck is supple, no JVD, no lymphadenopathy. CHEST: Chest is clear to auscultation and percussion. CARDIAC: Regular rate and rhythm with no murmur gallop or rubs. ABDOMEN: Soft, nondistended, nontender; no hepatosplenomegaly; bowel sounds are present in all four quadrants. EXTREMITIES: No clubbing, cyanosis, or edema. Assessment and Plan Plan ASSESSMENT: - Symptomatic anemia. Etiology of this unclear. No indication of active bleed. - Chronic diarrhea etiology unclear. According to the patient, she had extensive gastrointestinal workup. - Chest pain, cardiac work up pending 10-18-16 doing well today, no sign of active bleed, no pain. EGD showed irregular Z line possible Berger's, cervical inlet patches, gastritis Bx done colonoscopy showed diverticulosis and hemorrhoids, Bx for diarrhea. RECOMMENDATIONS - follow HH PRBC if needed - no reason for the anemia on these exams, patient will need capsule endoscopy as outpatient - consider hematology consult - await Bx result for diarrhea. - will need celiac Dx panel - may feed patient as tolerated Emanuel Morrison MD Oct 18, 2016 13:33
--- NOTE | 2016-10-18 13:38 | GIPROC ---
[address], [address] COLONOSCOPY PROCEDURE REPORT EXAM DATE: 10/18/2016 PATIENT NAME: Grisel White MR #: [id number] BIRTHDATE: 1945 ENDOSCOPIST: Emanuel Morrison MD ORDER #: [id number] TOURIST GUIDE: Evelyn Robledo RN STATUS: inpatient INDICATIONS: The patient is a 71 yr old female here for a colonoscopy due to anemia, non-specific and chronic diarrhea PROCEDURE PERFORMED: Colonoscopy with biopsy MEDICATIONS: None and Per Anesthesia. PREP QUALITY: fair ESTIMATED BLOOD LOSS: None CONSENT: The patient understands the risks and benefits of the procedure and understands that these risks include, but are not limited to: sedation, allergic reaction, infection, perforation and/or bleeding. Alternative means of evaluation and treatment include, among others: physical exam, x-rays, and/or surgical intervention. The patient elects to proceed with this endoscopic procedure. medical equipment was checked for proper function. Hand hygiene and appropriate measures for infection prevention was taken. After the risks, benefits and alternatives of the procedure were thoroughly explained, Informed consent was verified, confirmed and timeout was successfully executed by the treatment team. A digital exam revealed no abnormalities of the rectum The Pentax [id number] endoscope was introduced through the anus and advanced to the cecum, which was identified by both the appendix and ileocecal valve. The instrument was then slowly withdrawn as the colon was fully examined. COLON FINDINGS: The colonic mucosa appeared normal. Moderate diverticulosis was noted throughout the entire examined colon. Random Bx from rectum for diarrhea evaluation. Retroflexed views revealed medium internal hemorrhoids The scope was then completely withdrawn from the patient and the procedure terminated. ADVERSE EVENTS: There were no complications. IMPRESSIONS: 1. The colonic mucosa appeared normal 2. Moderate diverticulosis was noted throughout the entire examined colon 3. Random Bx from rectum for diarrhea evaluation 4. Retroflexed views revealed medium internal hemorrhoids 5. Revealed no abnormalities of the rectum RECOMMENDATIONS: 1. Await biopsy results. Biopsy results will not be ready for 7-10 days. If you don't hear from us in two weeks, call our office for results. 2. High fiber diet 3. May feed patient capsule endoscopy as outpatient rtc in 2 wks diet as tolerated RECALL: Return 10 years Colonoscopy Emanuel Morrison MD eSigned: Emanuel Morrison MD 10/18/2016 1:38 PM cc:
--- NOTE | 2016-10-18 13:42 | GIPROC ---
[address], [address] EGD PROCEDURE REPORT EXAM DATE: 10/18/2016 PATIENT NAME: Grisel White MR #: [id number] BIRTHDATE: 1945 ATTENDING: Emanuel Morrison MD ORDER #: [id number] MAILING MACHINE OPERATOR: Evelyn Robledo RN STATUS: inpatient INDICATIONS: The patient is a 71 yr old female here for an EGD due to anemia and chronic diarrhea PROCEDURE PERFORMED: EGD w/ biopsy MEDICATIONS: None and Per Anesthesia. TOPICAL ANESTHETIC: none CONSENT: The patient understands the risks and benefits of the procedure and understands that these risks include, but are not limited to: sedation, allergic reaction, infection, perforation and/or bleeding. Alternative means of evaluation and treatment include, among others: physical exam, x-rays, and/or surgical intervention. The patient elects to proceed with this endoscopic procedure. medical equipment was checked for proper function. Hand hygiene and appropriate measures for infection prevention was taken. After the risks, benefits and alternatives of the procedure were thoroughly explained, Informed consent was verified, confirmed and timeout was successfully executed by the treatment team. The patient was anesthetized with topical anesthesia and the Pentax [id number] endoscope was introduced through the mouth and advanced to the second portion of the duodenum. Retroflexed views revealed no abnormalities The gastroscope was then slowly withdrawn and removed. Gastric inlet patchs in the proximal esophagus. Irregular Z line Bx from EG junction. Gastritis Bx from antrum. The endoscopy was otherwise normal. ADVERSE EVENTS: There were no complications. IMPRESSIONS: 1. Gastric inlet patchs in the proximal esophagus 2. Irregular Z line Bx from EG junction 3. Gastritis Bx from antrum 4. Normal endoscopy otherwise 5. Retroflexed views revealed no abnormalities RECOMMENDATIONS: 1. Await biopsy results. Biopsy results will not be ready for 7-10 days. If you don't hear from us in two weeks, call our office for biopsy results. 2. Anti-reflux regimen 3. Continue PPI 4. Avoid NSAIDS 5. No clear reason for the anemia PATIENT CONDITION: stable DISPOSITION: Inpatient REPEAT EXAM: Return 3 years EGD Emanuel Morrison MD eSigned: Emanuel Morrison MD 10/18/2016 1:41 PM cc: PATIENT NAME: Grisel White MR#: [id number]
[2016-10-18] MEDS ORDERED: PROPOFOL 200 MG/20 ML AMP IV ONE (14:44)
[2016-10-18] MEDS: ASPIRIN 81 MG CHEW TAB CHEW SCH (14:48)
[2016-10-18] MEDS: DICYCLOMINE HCL 20 MG TAB PO SCH (14:48)
[2016-10-18] MEDS: CHOLECALCIFEROL (VIT D3) 5000 UNIT CAP PO SCH (14:48)
[2016-10-18] MEDS: COLLAGENASE OINT 30 GM TUBE TOPICAL SCH (14:48)
[2016-10-18] MEDS: FLUoxetine HCL 20 MG CAP PO SCH (14:48)
[2016-10-18] MEDS ORDERED: FERR324T4 PO (17:17)
[2016-10-18] MEDS ORDERED: CEPH500C PO (17:17)
[2016-10-18] MEDS ORDERED: MIRA3350 PO (17:17)
--- NOTE | 2016-10-18 17:24 | HHI.FF ---
Face to Face Verification Diagnosis: (1) Leg wound, left (2) CAD (coronary artery disease) Home Health Nursing Order: Wound care and dressing changes Nursing assessment with vital signs Instructions: Left leg wound Santyl with dry covering for the next 3 days. Nonstick dressing with debridement as needed thereafter. Will need further input from patient's residential direct support professional within the next few days. I have seen patient Grisel White on 10/18/16. My clinical findings support the need for the requested home health care services because: Deconditioned w/ increased weakness I certify that my clinical findings support that this patient is homebound because: Unsafe to leave home unassisted Cain Peterson MD Oct 18, 2016 17:24
--- NOTE | 2016-10-18 17:25 | HHI.DS ---
Discharge Summary Admission Date Oct 15, 2016 at 10:06 Discharge Date: Oct 18, 2016 Admitting Diagnosis Anemia, Dyspnea, CP, Aortic Stenosis, Pulm Edema (1) Anemia ICD Code: D64.9 - Anemia, unspecified Status: Acute (2) Leg wound, left ICD Code: S81.802A - Unspecified open wound, left lower leg, initial encounter Procedures EGD and colonoscopy. Please see report. Brief History - From Admission 77-year-old female with history of COPD, CAD status post stenting, CHF, atrial fibrillation, severe aortic stenosis, with history of stroke in August, and placed on Ellik was at that time, who presents to the ER having woken up this morning with shortness of breath. She took some nitroglycerin, which helped with her shortness of breath, and then proceeded to ER. She denies having any chest pain. She does report a progressive worsening of fatigue over the past month. She denies any bleeding. Denies any black tar in stools. CBC/BMP: 10/18/16 0509 10/18/16 0509 Significant Findings Laboratory Tests Test 10/15/16 20:42 10/15/16 22:10 10/16/16 07:15 10/16/16 12:58 Hemoglobin 9.0 GM/DL (11.6-15.3) 9.4 GM/DL (11.6-15.3) 9.3 GM/DL (11.6-15.3) Red Blood Count 3.90 MIL/MM3 (4.00-5.30) Hematocrit 30.7 % (35.0-46.0) Mean Corpuscular Volume 78.6 FL (80.0-100.0) Mean Corpuscular Hemoglobin 24.0 PG (27.0-34.0) Mean Corpuscular Hemoglobin Concent 30.6 % (32.0-36.0) Monocytes (%) (Auto) 8.5 % (0.0-8.0) Blood Urea Nitrogen 20 MG/DL (7-18) Creatinine 1.20 MG/DL (0.50-1.00) Random Glucose 113 MG/DL (74-106) Albumin 3.3 GM/DL (3.4-5.0) Calcium Level 8.2 MG/DL (8.5-10.1) Estimat Glomerular Filtration Rate 44 ML/MIN (>89) Test 10/16/16 20:30 10/17/16 06:47 10/17/16 15:46 10/18/16 05:09 Hemoglobin 9.4 GM/DL (11.6-15.3) 8.8 GM/DL (11.6-15.3) 8.9 GM/DL (11.6-15.3) 9.7 GM/DL (11.6-15.3) Red Blood Count 3.62 MIL/MM3 (4.00-5.30) Hematocrit 27.9 % (35.0-46.0) 30.9 % (35.0-46.0) Mean Corpuscular Volume 77.0 FL (80.0-100.0) 76.7 FL (80.0-100.0) Mean Corpuscular Hemoglobin 24.3 PG (27.0-34.0) 24.0 PG (27.0-34.0) Mean Corpuscular Hemoglobin Concent 31.6 % (32.0-36.0) 31.3 % (32.0-36.0) Creatinine 1.10 MG/DL (0.50-1.00) 1.10 MG/DL (0.50-1.00) Random Glucose 119 MG/DL (74-106) 108 MG/DL (74-106) Albumin 3.1 GM/DL (3.4-5.0) Calcium Level 8.2 MG/DL (8.5-10.1) Estimat Glomerular Filtration Rate 49 ML/MIN (>89) 49 ML/MIN (>89) Monocytes (%) (Auto) 9.5 % (0.0-8.0) Imaging Last Impressions Chest X-Ray 10/15/16 0831 Signed Impressions: Service Date/Time: Saturday, October 15, 2016 08:43 - CONCLUSION: Stable chest x-ray with findings characteristic of pulmonary edema and likely small bilateral pleural effusions. Hussain Gilbert MD Abdomen/Pelvis CT 10/15/16 0000 Signed Impressions: Service Date/Time: Saturday, October 15, 2016 20:02 - CONCLUSION: 1. No acute abnormality seen within the abdomen or pelvis. 2. Pleural effusions are seen of the visualized lung bases. 3. Chronic left renal atrophy. 4. Diffuse diverticulosis of the colon. No diverticulitis. Hussain Roldan MD Hospital Course Shouldn't presented with weakness, hemoglobin 7.7. Weakness improved with RBC transfusion, hemoglobin subsequently up to nines. Anticoagulation was held. Cardiology was consulted, cleared for EGD, colonoscopy. Gastroenterology was consulted performed EGD and colonoscopy with no signs of acute bleeding. Patient will be sent home with aspirin given her history of strokes in the past. She'll be started on iron supplementation, MiraLAX. She was also found to have left lower extremity infected biopsy site. She will follow-up with dermatology as outpatient. Course of Keflex and home health wound care ordered. For problem-based summary from most recent progress note, please see below. 71-year-old female with a history of atrial fibrillation, past strokes on CT imaging, who presents with weakness, suspected GI bleed. We are holding anticoagulation here. Difficult situation given past history of strokes. Cardiology and gastroenterology assistance appreciated. ==10/18/16========= hg and 9.7. Improved off anticoagulation. -Colonoscopy planned for today. Appreciate GI assistance. //Left ankle infection. Continue Keflex. Central. Wound care consult pending. //Symptomatic anemia //History of GERD -Continue patient on PPI. -Hold anticoagulation for now. Hemoglobin 7.7 down from baseline -Monitor hemoglobin -CT abdomen and pelvis pending. -GI consult. Appreciate assistance. //CHF exacerbation. Improved after Lasix on admission //Hyperlipidemia. //Aortic stenosis, aortic regurg. Chronic. //Atrial fibrillation. With RVR on admission. Spontaneously resolved. -Patient has history of stroke in the past, thus ideally would need to be on anticoagulation. -Continue home medications. Watch blood pressure closely. -Lasix ordered in ER. -Patient was in atrial fibrillation RVR with heart rate over 100 on presentation. Cardiology was consult. This resolved spontaneously. -Cardiology has cleared for colonoscopy/EGD. //History of depression. //History of anxiety No SI. Chronic. Continue home medication //Hypothyroidism. Chronic. TSH ordered and pending. Continue home dose of thyroxine. //Prophylaxis. Hold anticoagulation in the setting of GI bleed. Discharge Planning When cleared by gastroenterology Pt Condition on Discharge: Good Discharge Disposition: Disch w/ Home Health Serv Discharge Time: > 30 minutes Discharge Instructions DIET: Follow Instructions for: Heart Healthy Diet Activities you can perform: Regular-No Restrictions Follow up Referrals: Cardiology - 1 Week with Chidi Valentin DO Dermatology - 2-3 Days Gastroenterology - 1 Week with Cookie Johnston MD PCP Follow-up - 1 Week New Medications: Ferrous Sulfate DR (Ferrous Sulfate DR) 324 Mg Tabdr 324 MG PO DAILY for Nutritional Supplement, #30 TAB 0 Refills Polyethylene Glycol 3350 Powder (Miralax Powder) 17 Gm Powd 17 GM PO DAILY for Constipation, #1 CAN 0 Refills Mix and dissolve one measuring cap-ful (17 grams) in water or juice. Cephalexin (Cephalexin) 500 Mg Cap 500 MG PO Q6HR for infection, #28 CAP Continued Medications: Atorvastatin (Atorvastatin) 40 Mg Tab 40 MG PO HS for Cholesterol Management, #30 TAB 0 Refills Cholecalciferol (D3 Maximum Strength) 5,000 Unit Cap 5000 UNITS PO DAILY for Nutritional Supplement, #30 CAP 0 Refills Dicyclomine (Dicyclomine) 20 Mg Tab 20 MG PO DAILY for Bowel Management, #90 TAB 0 Refills Fluoxetine (Fluoxetine) 20 Mg Tab 20 MG PO DAILY, #30 TAB 0 Refills Levothyroxine (Synthroid) 112 Mcg Tab 112 MCG PO DAILY for Thyroid, #30 TAB 0 Refills Lorazepam (Lorazepam) 0.5 Mg Tab 0.5 MG PO Q6H PRN for ANXIETY, TAB 0 Refills Metoprolol Tartrate (Metoprolol Tartrate) 25 Mg Tab 25 MG PO BID, #60 TAB 0 Refills Omeprazole (Omeprazole) 40 Mg Cap 20 MG PO BID, #30 CAP 0 Refills [Aspirin Chew] () 81 MG CHEW 81 MG CHEW DAILY for cva for 30 Days, TAB.CHEW 0 Refills Cain Peterson MD Oct 18, 2016 17:25
[2016-10-20 07:53] LABS: IGA SERUM 164 mg/dL (81-463)
[2016-10-20 15:51] LABS: ENDOMYSIAL AB TITER ND (<1:5); TISSUE TRANSGLUTAMINASE AB LESS THAN 1 U/mL (0-4)
--- NOTE | 2016-10-21 14:19 | PQ ---
Physician Query Response Document PATIENT: HENRY CANALES : 1945 ADMIT DATE: 10/15/2016 10:06 AM DISCH DATE: 10/18/2016 6:30 PM RESPONDING PROVIDER #: [email or web address] QUERY TEXT: Present On Admission It is unclear whether a diagnosis was present on admission. Your help is needed. Please clarify the POA status Such as: -- Present on admission -- Not present on admission The patient's Clinical Indicators include: on discharge summary 10/18/16 you mention open wound from previous biopsy site w infection on left ank le Query created by: Mignon Ponce on 10/21/2016 11:46 AM RESPONSE TEXT: Provider disagreed with this CDI query. Please send this request to Dr. Cain Peterson. He is the one who discharged this patient. I was not involved in the care of this patient. QUERY TEXT: Clarification of Clinical Diagnostic Findings Please clarify documentation or clinical relevance for the clinical / diagnostic findings or whether those are insignificant or unable to be further specified. The patient's Clinical Indicators include: on 10/18/16 on discharge summary you mention infected open wound from previous biopsy site to left ank le. In your opinion is this late effect complication of biopsy due to infection other Query created by: Mignon Ponce on 10/21/2016 11:49 AM RESPONSE TEXT: Provider disagreed with this CDI query. Please send this request to Dr. Cain Peterson. He is the one who discharged this patient. I was not involved in the care of this patient. Electronically signed by: Javier Garcia DO 10/21/2016 2:15 PM
== END 2016-10-18 18:30 | disposition home or self-care (01) | DRG 812 ==
LOC: PHED 08:10 → PHEDA 10:06 → PHEDH 14:13 → PH3B 15:39
PROVIDERS: ADMIT Hospitalist; ATTEND Hospitalist
PROC: 30253N1 (ICD-10-PCS; principal; 2016-10-15)
PROC: 0DB68ZX Excision of Stomach, Via Natural or Artificial Opening Endoscopic, Diagnostic (ICD-10-PCS; 2016-10-18)
PROC: 0DBP8ZX Excision of Rectum, Via Natural or Artificial Opening Endoscopic, Diagnostic (ICD-10-PCS; 2016-10-18 12:46)
DX: D64.9 Anemia, unspecified (principal); I11.0 Hypertensive heart disease with heart failure; I50.9 Heart failure, unspecified; I48.91 Unspecified atrial fibrillation; E11.9 Type 2 diabetes mellitus without complications; I35.0 Nonrheumatic aortic (valve) stenosis; S81.802A Unspecified open wound, left lower leg, initial encounter; E03.9 Hypothyroidism, unspecified; E78.5 Hyperlipidemia, unspecified; I25.10 Atherosclerotic heart disease of native coronary artery without angina pectoris; Z95.5 Presence of coronary angioplasty implant and graft; Z95.1 Presence of aortocoronary bypass graft; J44.9 Chronic obstructive pulmonary disease, unspecified; K21.9 Gastro-esophageal reflux disease without esophagitis; Z86.73 Personal history of transient ischemic attack (TIA), and cerebral infarction without residual deficits; K57.90 Diverticulosis of intestine, part unspecified, without perforation or abscess without bleeding; K64.8 Other hemorrhoids; K29.70 Gastritis, unspecified, without bleeding; F41.8 Other specified anxiety disorders; Z90.710 Acquired absence of both cervix and uterus
CPT/HCPCS: 36430; 71010; 74176; 80048; 80053; 80069; 80076; 82105; 82272; 82378; 82728; 82784; 83516; 83540; 83550; 83735; 83880; 84443; 84484; 85018; 85025; 85610; 85730; 86301; 86850; 86900; 86901; 86920; 88305; 93005; C9113; J1940; J7050; J7120; P9016; Q9963